=== PATIENT | female | born 1955 | race Caucasian/White ===

== ENCOUNTER 2019-10-06 14:50 | Outpatient (CLI) | payer MEDICAID, SELFPAY ==
--- NOTE | ~2019-10-06 | PE_ITS ---
EXAMINATION: PET skull to mid thigh DATE: 10/06/2019 16:29 INDICATION: Right lung lower lobe nodule. TECHNIQUE: Blood glucose level was 87 mg/dL. 6.302 mCi of 18-fluorodeoxyglucose (18-FDG) was administ ered i.v. Low dose computed tomography (CT) images were acquired from the base of the brain to the pr oximal thighs for attenuation correction and anatomic localization. Automated exposure control was em ployed. Dose-length product (DLP) was 678 mGy-cm. Positron emission tomography (PET) images were acqu ired in the same distribution. COMPARISON: CT abdomen and pelvis 09/27/2019, chest CT 11/01/2017, maxillofacial CT 02/09/2017 FINDINGS: Head/neck: There is a 1.9 x 1.9 cm mass in superficial right parotid gland with maximum SUV of 10.7, stable from 02/09/2017. There is increased activity in the oropharynx, submandibular glands, and glott is without CT correlate, likely physiologic. There are no pathologically enlarged lymph nodes. Chest: There is mild emphysema. There is a staple line in right lung. There are peripheral airspace o pacities in right lower lobe and right middle lobe including a 1.3 cm nodule in right lower lobe with out increased activity. No pleural effusion. The heart size is normal. There are coronary artery calc ifications. No pericardial effusion. There are no pathologically enlarged lymph nodes. Abdomen/pelvis/proximal thighs: The liver is normal. There are gallstones in the gallbladder, which i s normal in size. The spleen, pancreas, adrenal glands, and kidneys are normal. There is a 3.6 cm fus iform aneurysm of infrarenal aorta. There are no dilated loops of bowel. There is diverticulosis of t he colon without evidence of diverticulitis. There is a right inguinal hernia containing fat. There a re no pathologically enlarged lymph nodes. There is no free intraperitoneal fluid. There is internal fixation of proximal right femur. There is no osseous malignancy. IMPRESSION: 1. Peripheral airspace opacities in right lower lobe and right middle lobe including a 1.3 cm nodule in right lower lobe without increased activity, stable from 11/01/2017, likely benign. 2. Mild emphysema. 3. 3.6 cm fusiform aneurysm of infrarenal aorta. 4. 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 Reviewed, dictated and finalized at location A. US MANAGER IMPRESSION: 1. Peripheral airspace opacities in right lower lobe and right middle lobe incl uding a 1.3 cm nodule in right lower lobe without increased activity, stable fr om 11/01/2017, likely benign. 2. Mild emphysema. 3. 3.6 cm fusiform aneurysm of infrarenal aorta. 4. 1.9 cm right parotid mass with increased activity, stable from 02/09/2017, mo st likely a benign mixed tumor or Warthin tumor.
[2019-10-06 15:08] LABS: Glucose Point of Care 87 (65-105)
== END 2019-10-06 14:51 | disposition home or self-care (01) ==
LOC: ANHIMG 14:50
PROVIDERS: PCP Nurse Practitioner Family; Visit Provider Nurse Practitioner Family
DX: R91.8 Other nonspecific abnormal finding of lung field (principal); J43.9 Emphysema, unspecified; I71.9 Aortic aneurysm of unspecified site, without rupture
CPT/HCPCS: 78815; A9552

== ENCOUNTER 2020-04-14 06:04 | Inpatient (IN) | payer MEDICAID, SELFPAY ==
[2020-04-14] VITALS (9 sets, daily range): BP systolic 130–170; BP diastolic 66–93; PULSE 86–104; RESP 16–20; TEMP 35.9–37.1; O2SAT 93–95; BMI 22.3
--- NOTE | ~2020-04-14 | CT_ITS ---
EXAMINATION: CTA chest PE protocol DATE: 04/16/2020 02:02 INDICATION: Dyspnea. Hypoxemia. TECHNIQUE: Computed tomography angiography (CTA) of the chest was performed with 100 mL Omnipaque-350 intravenous contrast timed to evaluate the pulmonary arteries. Coronal maximum intensity projection 3D-reconstructions were created by the technologist. Automated exposure control and iterative reconst ruction technique were employed. The dose-length product was 242.11 mGy-cm. COMPARISON: PET CT 10/06/2019 FINDINGS: There is mild emphysema. There is a staple line in right upper lobe. There is mild atelecta sis in right upper lobe, right middle lobe, and lingula. There are airspace opacities in the basilar lower lobes with volume loss, most likely atelectasis. There is a small left pleural effusion. The he art size is normal. There are coronary artery calcifications. No pericardial effusion. The central pu lmonary arteries are enlarged, consistent with pulmonary arterial hypertension. There are pulmonary e mboli in right upper lobe. There is eventration of anterior right hemidiaphragm. There is diffuse hep atic steatosis. There is mild thoracic spondylosis and moderate cervical spondylosis. IMPRESSION: 1. Acute right upper lobe pulmonary emboli. 2. Airspace opacities in the basilar lower lobes with volume loss, consistent with atelectasis or les s likely pneumonia. 3. Mild emphysema. 4. Small left pleural effusion. Reviewed, dictated and finalized at location A. IMPRESSION: 1. Acute right upper lobe pulmonary emboli. 2. Airspace opacities in the basilar lower lobes with volume loss, consistent w ith atelectasis or less likely pneumonia. 3. Mild emphysema. 4. Small left pleural effusion.
--- NOTE | ~2020-04-14 | CT_ITS ---
EXAMINATION: CT cervical spine wo con DATE: 04/14/2020 07:48 INDICATION: Neck pain. TECHNIQUE: Computed tomography (CT) of the cervical spine was performed without intravenous contrast. Automated exposure control and iterative reconstruction technique were employed. The dose-length pro duct was 189.42 mGy-cm. COMPARISON: Cervical spine CT 11/01/2017 FINDINGS: There is mild emphysema. There is a staple line in right upper lobe. Again seen are 1.9 cm and 1.0 cm masses in right parotid gland. There is 15 degrees dextroscoliosis of cervicothoracic spin e. Vertebral body heights are normal. There is mildly decreased disc height at C3-C4 and C4-C5 and mo derately decreased disc height at C5-C6 and C6-C7. The following disc levels are specifically discuss ed: C2-C3: There is no uncovertebral joint osteoarthritis. There is severe bilateral facet joint osteoart hritis. There is no neural foraminal stenosis. There is no central canal stenosis. C3-C4: There is mild bilateral uncovertebral joint osteoarthritis. There is moderate right and mild l eft facet joint osteoarthritis. There is mild left neural foraminal stenosis. There is no central can al stenosis. C4-C5: There is moderate right and mild left uncovertebral joint osteoarthritis. There is severe righ t and mild left facet joint osteoarthritis. There is moderate right neural foraminal stenosis. There is no central canal stenosis. C5-C6: There is severe bilateral uncovertebral joint osteoarthritis. There is severe bilateral facet joint osteoarthritis. There is mild right and moderate left neural foraminal stenosis. There is mild central canal stenosis. C6-C7: There is mild right and moderate left uncovertebral joint osteoarthritis. There is moderate le ft facet joint osteoarthritis. There is mild left neural foraminal stenosis. There is mild central ca nal stenosis. C7-T1: There is no uncovertebral joint osteoarthritis. There is severe bilateral facet joint osteoart hritis. There is mild right and moderate left neural foraminal stenosis. There is no central canal st enosis. IMPRESSION: 1. No fracture. 2. Moderate cervical spondylosis. 3. Thoracolumbar dextroscoliosis. 4. Stable right parotid masses, most likely benign mixed tumors or Warthin tumors. Reviewed, dictated and finalized at location A. IMPRESSION: 1. No fracture. 2. Moderate cervical spondylosis. 3. Thoracolumbar dextroscoliosis. 4. Stable right parotid masses, most likely benign mixed tumors or Warthin tumo rs.
--- NOTE | ~2020-04-14 | CT_ITS ---
EXAMINATION: CT brain wo con DATE: 04/14/2020 07:47 INDICATION: Headache. TECHNIQUE: Computed tomography (CT) of the head was performed without intravenous contrast. The mA wa s adjusted according to patient size. Iterative reconstruction technique was employed. The dose-lengt h product was 681.00 mGy-cm. COMPARISON: Head CT 03/20/2018 FINDINGS: There is no intracranial hemorrhage, acute infarction, or abnormal intracranial mass lesion . There are scattered areas of low attenuation in the cerebral white matter, which is within normal l imits for the patient's age. The ventricles are normal in size. The orbits are normal. There is mild mucosal thickening in the ethmoid sinuses. There is a small right mastoid effusion. There are 1.8 cm and 1.0 cm masses in superficial right parotid gland. IMPRESSION: 1. Normal aging brain. 2. Stable right parotid masses, likely benign mixed tumors or Warthin tumors. Reviewed, dictated and finalized at location A.
--- NOTE | ~2020-04-14 | XR_ITS ---
EXAMINATION: XR chest 1V portable DATE: 04/14/2020 07:50 INDICATION: Chest pain. TECHNIQUE: A single frontal view of the chest was obtained. COMPARISON: Chest 2 views 07/05/2019, PET CT 10/06/2019 FINDINGS: There are lucencies in the upper lungs, consistent with emphysema. There is mild atelectasi s in the lower lung zones. No pleural effusion or pneumothorax. The heart size is normal. IMPRESSION: 1. Mild atelectasis in the lower lung zones. 2. Emphysema. Reviewed, dictated and finalized at location A.
--- NOTE | ~2020-04-14 | XR_ITS ---
EXAMINATION: XR chest 1V portable DATE: 04/16/2020 00:50 INDICATION: Fever. Hypoxemia. TECHNIQUE: A single frontal view of the chest was obtained. COMPARISON: Chest single view 04/14/2020, chest CT 04/16/2020 FINDINGS: There are lucencies at the lung apices, consistent with emphysema. There is a staple line i n right upper lobe. There are airspace opacities at the lung bases. There is a small left pleural eff usion. No pneumothorax. The heart size is normal. IMPRESSION: 1. Worsened airspace opacities at the lung bases, consistent with atelectasis versus pneumonia. 2. New small left pleural effusion. 3. Emphysema. Reviewed, dictated and finalized at location A. IMPRESSION: 1. Worsened airspace opacities at the lung bases, consistent with atelectasis v ersus pneumonia. 2. New small left pleural effusion. 3. Emphysema.
--- NOTE | ~2020-04-14 | CT_ITS ---
EXAMINATION: CT pelvis wo con DATE: 04/14/2020 07:48 INDICATION: Right hip pain. Fall. TECHNIQUE: Computed tomography (CT) of the pelvis was performed without intravenous contrast. Automat ed exposure control and iterative reconstruction technique were employed. The dose-length product was 285.62 mGy-cm. COMPARISON: PET CT 10/06/2019 FINDINGS: Partially visualized is a fusiform abdominal aortic aneurysm measuring at least 3.5 cm. The re is diverticulosis of the colon without evidence of diverticulitis. There are no dilated loops of b owel. There are no pathologically enlarged lymph nodes. There is no free intraperitoneal fluid. There is a nondisplaced transverse fracture of right acetabulum with small hematoma. There are old healed fractures of the inferior pubic rami. There is internal fixation of right femur with antegrade intram edullary nicol and femoral head/neck screw. There is mild osteoarthritis of the hips. There is mild lum bar spondylosis. IMPRESSION: 1. Nondisplaced transverse fracture of right acetabulum. 2. Mild osteoarthritis of the hips. 3. Stable 3.5 cm fusiform abdominal aortic aneurysm. Reviewed, dictated and finalized at location A.
--- NOTE | 2020-04-14 06:17 | ED_ITS ---
HPI - General Adult General Chief complaint: Unspecified Stated complaint: hip pain Source: patient and family (daughter) History of Present Illness HPI narrative: Fell at home sometime during the night. Her daughter helped her back to bed. Awoke in extreme pain. Has previously broken the right hip and right femur at different times. Uses wheelchair or walker at home. Related Data Home Medications Medication Instructions Recorded Confirmed albuterol sulfate 90 mcg/actuation 2 puff INHALATION Q4-6H PRN gm 07/05/19 04/14/20 aerosol inhaler gabapentin 300 mg capsule 300 mg PO TID 07/05/19 04/14/20 pantoprazole 40 mg tablet,delayed 40 mg PO QAM 07/05/19 04/14/20 release potassium chloride 10 mEq 10 meq PO DAILY 07/05/19 04/14/20 tablet,extended release magnesium hydroxide 400 mg (170 mg See Rx Instructions .ROUTE 09/27/19 04/14/20 magnesium) chewable tablet .COMPLEX tablet Allergies Allergy/AdvReac Type Severity Reaction Status Date / Time No Known Allergies Allergy Unverified 09/30/19 14:29 [facility] Social History Social History Smoking packs per day: 0.5 Smoking cigarettes per day: 10.0 Years smoked: 50 Smoking pack-years: 25.00 Smoking status: Current every day smoker Tobacco type: cigarettes Second hand tobacco smoke exposure: No Alcohol intake: current Substance use: former Substance use type: marijuana Additional living arrangements comments: [facility] provides person for shopping, housework, ADLs. Person comes 1 time a week. Gender identity (if verbalized by the patient): Female Discharge Plan Discharge Prescriptions: No Action Pedia-Lax 400 mg (170 mg magnesium) tablet,chewable See Rx Instructions .ROUTE .COMPLEX RF: 0 gabapentin 300 mg capsule 300 mg PO TID RF: 0 pantoprazole 40 mg tablet,delayed release (DR/EC) 40 mg PO QAM RF: 0 albuterol sulfate [Ventolin HFA] 90 mcg/actuation HFA aerosol inhaler 2 puff INHALATION Q4-6H PRN (Reason: Shortness Of Breath) RF: 0 potassium chloride 10 mEq tablet extended release 10 meq PO DAILY RF: 0 meloxicam 15 mg tablet 15 mg PO DAILY PRN (Reason: pain) Qty: 20 RF: 0 diclofenac sodium [Voltaren] 1 % gel 2 gm TOPICAL QID PRN (Reason: pain) 5 Days Qty: 100 RF: 2
--- NOTE | 2020-04-14 06:34 | ED.FALL ---
HPI - Fall General Chief Complaint: Altered Mental Status Stated Complaint: hip pain Time Seen by Provider: 04/14/20 07:28 Source: patient Mode of arrival: EMS Limitations: other (pain) History of Present Illness HPI Narrative: 65 y.o. female with chronic alcohol abuse disorder, cirrhosis and a hx of right femur and right hip fractures, thinks she was getting out of bed sometime during the night and fell to the floor. She was intoxicated, doesn't remember falling or having pain. Her daughter helped her back to bed, but she awoke this AM in severe pain with nausea and dry heaves and a minor headache. She denies neck pain. She states she's had black tarry stools for the last few weeks. She's also been having episodes of left sided chest pain for several weeks. She does not know the frequency or duration. She has had this pain for the last 30 minutes. Related Data Home Medications Medication Instructions Recorded Confirmed albuterol sulfate 90 mcg/actuation 2 puff INHALATION Q4-6H PRN gm 07/05/19 04/14/20 aerosol inhaler gabapentin 300 mg capsule 300 mg PO TID 07/05/19 04/14/20 pantoprazole 40 mg tablet,delayed 40 mg PO QAM 07/05/19 04/14/20 release potassium chloride 10 mEq 10 meq PO DAILY 07/05/19 04/14/20 tablet,extended release magnesium hydroxide 400 mg (170 mg See Rx Instructions .ROUTE 09/27/19 04/14/20 magnesium) chewable tablet .COMPLEX tablet Allergies Allergy/AdvReac Type Severity Reaction Status Date / Time No Known Allergies Allergy Unverified 09/30/19 14:29 Review of Systems Constitutional: Constitutional: Denies chills and Denies fever(s) ENT: Denies epistaxis Cardiovascular: Cardiovascular: Denies leg edema Respiratory: Respiratory: Denies cough (chronic) and Reports dyspnea (chronic, not recently worse. ) Gastrointestinal: Gastrointestinal: Denies abdominal pain, Denies diarrhea, Reports nausea and Reports vomiting Genitourinary: Comments: periodic incontinence. Musculoskeletal: Comments: denies pain elsewhere Integumentary/Breasts: Skin/Breast: Denies rash Neurologic: Reports headache(s) and Denies weakness Endocrine: Endocrine: Denies polydipsia Hematologic/Lymphatic: Hematologic/Lymphatic: Reports easy bleeding PMFSH Social History Social History Smoking packs per day: 0.5 Smoking cigarettes per day: 10.0 Years smoked: 50 Smoking pack-years: 25.00 Smoking status: Current every day smoker Tobacco type: cigarettes Second hand tobacco smoke exposure: No Alcohol intake: current Substance use: former Substance use type: marijuana Additional living arrangements comments: [facility] provides person for shopping, housework, ADLs. Person comes 1 time a week. Gender identity (if verbalized by the patient): Female Exam Const: General: No confusion Orientation/consciousness: patient oriented x3 Other: Laying supine, moaning, c/o severe pain HENMT: Head: normal to inspection, No palpable skull fracture present, atraumatic, no contusions, no hematomas and no lacerations Face and sinus: normal facial exam Eyes: General: appearance normal, both eyes and all related structures Conjunctivae: other Neck: Neck: normal visual inspection, no lymphadenopathy and other (nontender) Chest: Chest palpation & inspection: normal inspection of the chest and no tenderness Resp: Effort & Inspection: normal respiratory effort Auscultation: clear to auscultation bilaterally Cardio: Rhythm: regular rhythm Heart sounds: S1 normal heart sound present and S2 normal heart sound present GI: Inspection: normal to inspection GI Palp: No abdominal tenderness, Yes Soft to palpation, No Hepatomegaly present and No Splenomegaly present Back/Spine/Pelvis: Back: no CVA tenderness Thoracic/Lumbar Spine: thoracic and lumbar spine normal to inspection Pelvis: no tenderness over symphysis pubis Other: Right hip held f
[2020-04-14] MEDS: MORPHINE SULFATE 2 MG/ML INJ IV PUSH ×3 (06:36→07:46)
[2020-04-14] MEDS: ONDANSETRON INJ 4 MG/2 ML VIAL IV PUSH ×2 (06:37→12:16)
[2020-04-14 07:10] LABS: Basophils Absolute Auto 0.03 K/mm3 (0.00-0.10); Basophils Percent Auto 0.4 % (0.0-1.0); Eosinophils Absolute Auto 0.02 K/mm3 (0.02-0.50); Eosinophils Percent Auto 0.3 % (1.0-6.0); Hematocrit 41.8 % (35.0-49.0); Hemoglobin 15.3 g/dL (12.0-15.0); Immature Granulocyte Absolute 0.02 K/mm3 (0.00-0.00); Immature Granulocyte Percent A 0.3 % (0.0-0.0); Lymphocytes Absolute Auto 1.46 K/mm3 (1.10-4.50); Lymphocytes Percent Auto 19.6 % (18.0-42.0); Mean Corpuscular HGB Conc 36.6 g/dL (32.0-36.0); Mean Corpuscular Hemoglobin 37.4 pg (27.0-31.0); Mean Corpuscular Volume 102.2 fL (78.0-102.0); Mean Platelet Volume 9.3 fl (9.2-11.8); Monocytes Absolute Auto 0.36 K/mm3 (0.10-0.90); Monocytes Percent Auto 4.8 % (2.0-11.0); Neutrophils Absolute Auto 5.6 K/mm3 (1.7-7.2); Neutrophils Percent Auto 74.6 % (50.0-70.0); Platelet Count Result 171 K/mm3 (150-420); Red Blood Count 4.09 M/mm3 (4.20-5.40); Red Cell Distribution Width 13.8 % (11.6-14.4); White Blood Count 7.4 K/mm3 (4.8-10.8)
[2020-04-14 07:13] LABS: Occult Blood Negative (Negative)
--- NOTE | 2020-04-14 07:13 | ECG_ITS ---
Measurements Intervals [place] Rate: 94 P: 64 PA: 138 QRS: 17 QRSD: 77 T: 70 QT: 367 QTc: 459 Interpretive Statements SINUS RHYTHM RSR' IN V1 OR V2, PROBABLY NORMAL VARIANT MINIMAL Q WAVES- INFERIOR LEADS BORDERLINE ECG Electronically Signed On 04-16-2020 7:10:42 CDT by Kevin Rubio D.O.
[2020-04-14 07:20] LABS: INR 1.1; Partial Thromboplastin Time 28.1 SEC (22.3-31.6); Prothrombin Time 10.9 Seconds (9.64-11.0)
[2020-04-14 07:31] LABS: Alanine Aminotransferase 42 U/L (14-59); Albumin Level 3.2 g/dL (3.4-5.0); Alkaline Phosphatase 150 U/L (46-116); Anion Gap 15 mmol/L (8-16); Aspartate Amino Transferase 76 U/L (15-37); Bilirubin,Total 0.4 mg/dL (0.00-1.00); Blood Urea Nitrogen 2 mg/dL (7-18); Calcium 7.9 mg/dL (8.5-10.1); Carbon Dioxide 22 mmol/L (21-32); Chloride 103 mmol/L (98-108); Estimated CRCL calculation 57 ml/min; Estimated Glomerular Filt Rate > 60; Ethanol 154 mg/dL (0-6); Glucose 108 mg/dL (70-99); Osmolality Calculated 287 mOsm/kg (285-295); Potassium 3.2 mmol/L (3.5-5.1); Sodium 140 mmol/L (136-145); Total Protein 7.3 g/dL (6.4-8.2)
[2020-04-14 07:32] LABS: Troponin I < 0.02 ng/mL (0.00-0.056)
[2020-04-14 07:36] LABS: Add Urine Microscopic? NO; Appearance Urine Clear (Clear); Bilirubin Urine Negative (Negative); Blood Urine Negative (Negative); Color Urine Straw (Yellow); Glucose Urine UA Negative (Negative); Ketones Urine Negative (Negative); Leukocyte Esterase Ur Negative LEU/UL (Negative); Nitrate Urine Negative (Negative); Protein Urine Negative (Negative); Specific Grav Ur <= 1.005 (1.010-1.020); Urobilinogen Urine 0.2 mg/dL (0.2-1.0)
[2020-04-14 07:38] LABS: Magnesium 1.5 mg/dL (1.8-2.4)
--- NOTE | 2020-04-14 08:23 | PC.NURSE ---
0815 patient request [facility] [id number] now request mehdi
--- NOTE | 2020-04-14 08:27 | PC.NURSE ---
calling dr parish exchange, no answer
--- NOTE | 2020-04-14 08:46 | PC.NURSE ---
0835 called [facility] for possible admission to their hospital now.
--- NOTE | 2020-04-14 08:50 | PC.NURSE ---
attempted to reposition & place ice, patient refused. Keeps hollering I want breakfast, explained by medical underwriter & MD can not eat or drink until ortho defines plan of care
--- NOTE | 2020-04-14 08:58 | PC.NURSE ---
spoke to hospitalist, to be admitted here
--- NOTE | 2020-04-14 09:22 | PC.NURSE ---
[id number] called to give report, nurse with another patient
[2020-04-14] MEDS: HYDROmorphone HCL 2 MG/ML VIAL IV PUSH ×2 (09:33→14:31)
--- NOTE | 2020-04-14 09:41 | PC.NURSE ---
report given, to come take patient to room
[2020-04-14] MEDS: chlordiazePOXIDE 10 MG CAPSULE PO (10:20)
[2020-04-14] MEDS: SODIUM CHLORIDE 0.9% IV 1,000 ML 100 ML IV CONT ×2 (10:23→19:33)
--- NOTE | 2020-04-14 11:20 | PC.NURSE ---
Patient resting quietly in bed. No signs of distress noted. Call light in reach.
--- NOTE | 2020-04-14 14:22 | PM.IMHP ---
H&P: HPI History of Present Illness Date/Time: 04/14/20 14:22 Chief complaint: hip pain Narrative: Clara Joseph is a 65 year old female The sustained a nondisplaced transverse fracture of the right acetabulum status post fall. Patient has a past medical history chronic alcohol abuse disorder, cirrhosis, history of right femur and right hip fracture. While patient was intoxicated she attempts to get out of bed overnight and fell daughter assisted her back to bed but when she woke up this a.m. she has severe pain with nausea and dry heaves with headache and black stool. While in the ED a CT of the pelvis was completed it indicated nondisplaced transfer fracture of the right acetabulum. CT of the cervical spine did not indicate any fractures. Patient order morphine and Dilaudid to better control pain, given Zofran for nausea patient's sodium 3.2, AST elevated at 76. Patient's alcohol level on admission 154, magnesium pending, troponin 0.02 within normal limits. Patient vital signs 148/90 with a heart rate of 104 respiratory rate of 18 temperature 97.1? on room air 94%. Patient also received a banana bag while the ED due to her history of alcoholism and elevated alcohol level. Patient is continues to complain of nausea and vomiting and pain to the right hip without movement. patient pulses are palpable and she has with sensation, no hematoma felt to that right hip. patient is not able to bear weight to that right leg .. Patient denies SOB, CP, palpitation, extremity numbness, headache, lightheadness, dizziness, constipation, diarrhea, chills or fever. patient has agreed to transition to rehab Review of Systems Review of Systems: All systems reviewed & are unremarkable except as noted in HPI and below ( in the H&P 10 point system complete) [facility] Social History Social History Smoking packs per day: 1 Smoking cigarettes per day: 20.0 Years smoked: 50 Smoking pack-years: 50.00 Smoking status: Current every day smoker Tobacco type: cigarettes Second hand tobacco smoke exposure: No Alcohol intake: current Drinks per week: 70 Substance use: current Substance use type: marijuana and methamphetamine Additional living arrangements comments: [facility] provides person for shopping, housework, ADLs. Person comes 1 time a week. Gender identity (if verbalized by the patient): Female Spiritual care concerns: No Meds Home Medications and Allergies Home Medications Medication Instructions Recorded Confirmed Type albuterol sulfate 90 mcg/actuation 2 puff INHALATION Q4-6H PRN gm 07/05/19 04/14/20 History aerosol inhaler gabapentin 300 mg capsule 300 mg PO TID 07/05/19 04/14/20 History pantoprazole 40 mg tablet,delayed 40 mg PO QAM 07/05/19 04/14/20 History release potassium chloride 10 mEq 10 meq PO DAILY 07/05/19 04/14/20 History tablet,extended release magnesium hydroxide 400 mg (170 mg See Rx Instructions .ROUTE 09/27/19 04/14/20 History magnesium) chewable tablet .COMPLEX tablet meloxicam 15 mg tablet 15 mg PO DAILY PRN #20 tablet 10/14/19 04/14/20 Rx diclofenac sodium 1 % topical gel 2 gm TOPICAL QID PRN 5 Days #100 gm 11/18/19 04/14/20 Rx Allergies Allergy/AdvReac Type Severity Reaction Status Date / Time No Known Allergies Allergy Unverified 09/30/19 14:29 Vital Signs Vital Signs - 24 hr 04/14/20 06:23 04/14/20 07:48 04/14/20 08:49 Temperature 98.7 F 98 F Pulse Rate 90 88 86 Respiratory Rate 20 18 16 Blood Pressure 140/70 130/66 140/80 Pulse Oximetry 94 94 94 04/14/20 09:57 04/14/20 10:00 Temperature 98 F 97.1 F L Pulse Rate 88 104 H Respiratory Rate 18 18 Blood Pressure 160/70 H 148/90 H Pulse Oximetry 94 94 Exam Narrative: Exam Narrative: HEENT: PERRLA, Mucous Membranes Moist and [place], Nares Patent, Sclera Clear Neck: JVD, Supple Pulmonary: Clear to Auscultation, Normal Air Movement Cardiov
[2020-04-14] MEDS: METOCLOPRAMIDE HCL INJ 10 MG/2 ML VIAL IV PUSH ×3 (14:32→23:35)
[2020-04-14] MEDS: MAGNESIUM SULF 2 GM/WATER 50ML 2 GM/50 ML BAG IVPB (16:26)
[2020-04-14] MEDS: MELOXICAM 7.5 MG TABLET 15 MG PO (17:03)
[2020-04-14] MEDS: chlordiazePOXIDE 25 MG CAPSULE PO ×2 (17:04→23:35)
[2020-04-14] MEDS: GABAPENTIN 300 MG CAPSULE PO (17:05)
[2020-04-14 17:14] LABS: Glucose Point of Care 130 (65-105)
[2020-04-14] MEDS: KCL 20 MEQ/SW 100 ML 100 ML 50 MEQ IVPB (17:35)
[2020-04-14] MEDS: IPRATROPIUM 0.5 MG/ALBUTEROL SULFATE 2.5 MG AMPUL.NEB 3 ML INHALATION (18:33)
[2020-04-14 21:33] LABS: Glucose Point of Care 151 (65-105)
[2020-04-15] VITALS (15 sets, daily range): BP systolic 108–140; BP diastolic 62–76; PULSE 78–140; RESP 16–20; TEMP 36.7–37.7; O2SAT 75–98
[2020-04-15] MEDS: IPRATROPIUM 0.5 MG/ALBUTEROL SULFATE 2.5 MG AMPUL.NEB 3 ML INHALATION ×4 (00:08→23:20)
[2020-04-15] MEDS: HYDROmorphone HCL 2 MG/ML VIAL IV PUSH ×3 (04:09→19:35)
[2020-04-15] MEDS: SODIUM CHLORIDE 0.9% IV 1,000 ML 100 ML IV CONT ×2 (05:12→15:25)
[2020-04-15] MEDS: METOCLOPRAMIDE HCL INJ 10 MG/2 ML VIAL IV PUSH ×3 (06:04→17:17)
[2020-04-15] MEDS: chlordiazePOXIDE 25 MG CAPSULE PO ×3 (06:04→19:24)
--- NOTE | 2020-04-15 06:20 | PC.NURSE ---
Notified Dr. [place] of pt's low urine output; New orders received and noted.
[2020-04-15] MEDS: FUROSEMIDE INJ 40 MG/4 ML VIAL IV PUSH (06:29)
[2020-04-15 06:42] LABS: Basophils Absolute Auto 0.01 K/mm3 (0.00-0.10); Basophils Percent Auto 0.1 % (0.0-1.0); Eosinophils Absolute Auto 0.02 K/mm3 (0.02-0.50); Eosinophils Percent Auto 0.2 % (1.0-6.0); Hematocrit 36.6 % (35.0-49.0); Hemoglobin 12.8 g/dL (12.0-15.0); Immature Granulocyte Absolute 0.03 K/mm3 (0.00-0.00); Immature Granulocyte Percent A 0.4 % (0.0-0.0); Lymphocytes Absolute Auto 2.18 K/mm3 (1.10-4.50); Lymphocytes Percent Auto 26.6 % (18.0-42.0); Mean Corpuscular Hemoglobin 37.2 pg (27.0-31.0); Mean Corpuscular Volume 106.4 fL (78.0-102.0); Mean Platelet Volume 9.7 fl (9.2-11.8); Monocytes Percent Auto 6.1 % (2.0-11.0); Neutrophils Absolute Auto 5.5 K/mm3 (1.7-7.2); Neutrophils Percent Auto 66.6 % (50.0-70.0); Platelet Count Result 125 K/mm3 (150-420); Red Blood Count 3.44 M/mm3 (4.20-5.40); Red Cell Distribution Width 14.4 % (11.6-14.4); White Blood Count 8.2 K/mm3 (4.8-10.8)
[2020-04-15 06:51] LABS: Magnesium 1.8 mg/dL (1.8-2.4)
[2020-04-15 07:19] LABS: Alanine Aminotransferase 29 U/L (14-59); Albumin Level 2.7 g/dL (3.4-5.0); Alkaline Phosphatase 129 U/L (46-116); Anion Gap 8 mmol/L (8-16); Aspartate Amino Transferase 41 U/L (15-37); Bilirubin,Total 0.4 mg/dL (0.00-1.00); Blood Urea Nitrogen 3 mg/dL (7-18); Calcium 7.4 mg/dL (8.5-10.1); Carbon Dioxide 27 mmol/L (21-32); Chloride 103 mmol/L (98-108); Estimated CRCL calculation 80 ml/min; Estimated Glomerular Filt Rate > 60; Glucose 94 mg/dL (70-99); Osmolality Calculated 282 mOsm/kg (285-295); Potassium 3.1 mmol/L (3.5-5.1); Sodium 138 mmol/L (136-145); Total Protein 6.3 g/dL (6.4-8.2)
--- NOTE | 2020-04-15 07:58 | P.PN_ITS ---
Progress Note: A&P Assessment and Plan (1) Acetabulum fracture, right: Code(s): S32.401A - Unspecified fracture of right acetabulum, initial encounter for closed fracture Status: Acute Assessment and Plan: * CT indicates Nondisplaced transverse fracture of right acetabulum. * ortho called at [place] patient fracture is nonoperative., will medically treat * will start pain control and nonweightbearing to the right leg * will possibly transition patient to swing bed or rehab * patient with a history of right IM nailing on 08/19/2013 at [facility] by Dr. Cintron, and then again on to 10/05/15 at [facility] by Dr. Bajwa procedure right IM nailing with hardware removal. (2) Parotid mass: Code(s): K11.8 - Other diseases of salivary glands Status: Acute Assessment and Plan: * cervical CT indicates 1.9 cm and 1.0 cm masses in right parotid gland with small hematoma * patient will have follow-up with primary care physician after discharge (3) Alcohol dependence: Code(s): F10.20 - Alcohol dependence, uncomplicated Status: Acute Assessment and Plan: * patient has a history of alcohol abuse with cirrhosis * alcohol level at 154 on admission repeat pending * educated on cessation * patient is receiving Librium for withdrawal symptoms (4) Cirrhosis of liver: Code(s): K74.60 - Unspecified cirrhosis of liver Status: Acute Assessment and Plan: * secondary to alcohol abuse * hemoglobin and hematocrit stable today * will continue to monitor closely * patient does not appear to be actively bleeding * will continue to monitor hemoglobin hematocrit (5) Nicotine dependence with current use: Code(s): F17.200 - Nicotine dependence, unspecified, uncomplicated Status: Acute Assessment and Plan: * discuss smoking cessation * order nicotine patch (6) GERD (gastroesophageal reflux disease): Code(s): K21.9 - Gastro-esophageal reflux disease without esophagitis Status: Acute Assessment and Plan: * continue Protonix (7) COPD (chronic obstructive pulmonary disease): Code(s): J44.9 - Chronic obstructive pulmonary disease, unspecified Status: Acute Assessment and Plan: * stable * patient sat's 89 this is more than likely her baseline , patient without signs of respiratory distress such as shortness of breath or labored breathing * continue inhalers * p.r.n. oxygen * continue vital signs (8) AAA (abdominal aortic aneurysm) without rupture: Code(s): I71.4 - Abdominal aortic aneurysm, without rupture Status: Acute Assessment and Plan: * fusiform abdominal aortic aneurysm measuring at least 3.5 cm. * monitor by primary care physician (9) Nausea & vomiting: Code(s): R11.2 - Nausea with vomiting, unspecified Status: Acute Assessment and Plan: * resolved * possibly secondary to withdrawal symptoms * continue Zofran also added Reglan * will continue to hydrate patient the IV (10) DVT prophylaxis: Code(s): Z29.9 - Encounter for prophylactic measures, unspecified Status: Acute Assessment and Plan: * will start Lovenox * (11) Black stool: Code(s): K92.1 - Melena Status: Acute Assessment and Plan: * hemoglobin hematocrit stable * no active bleeding noted * occult blood negative (12) Hypokalemia: Code(s): E87.6 - Hypokalemia Status: Acute Assessment and Plan: * po
--- NOTE | 2020-04-15 07:58 | WPDPN ---
Progress Note: A&P Assessment and Plan (1) Acetabulum fracture, right: Code(s): S32.401A - Unspecified fracture of right acetabulum, initial encounter for closed fracture Status: Acute Assessment and Plan: CT indicates Nondisplaced transverse fracture of right acetabulum. ortho called at [place] patient fracture is nonoperative., will medically treat will start pain control and nonweightbearing to the right leg will possibly transition patient to swing bed or rehab patient with a history of right IM nailing on 08/19/2013 at [facility] by Dr. Cintron, and then again on to 10/05/15 at [facility] by Dr. Bajwa procedure right IM nailing with hardware removal. (2) Parotid mass: Code(s): K11.8 - Other diseases of salivary glands Status: Acute Assessment and Plan: cervical CT indicates 1.9 cm and 1.0 cm masses in right parotid gland with small hematoma patient will have follow-up with primary care physician after discharge (3) Alcohol dependence: Code(s): F10.20 - Alcohol dependence, uncomplicated Status: Acute Assessment and Plan: patient has a history of alcohol abuse with cirrhosis alcohol level at 154 on admission repeat pending educated on cessation patient is receiving Librium for withdrawal symptoms (4) Cirrhosis of liver: Code(s): K74.60 - Unspecified cirrhosis of liver Status: Acute Assessment and Plan: secondary to alcohol abuse hemoglobin and hematocrit stable today will continue to monitor closely patient does not appear to be actively bleeding will continue to monitor hemoglobin hematocrit (5) Nicotine dependence with current use: Code(s): F17.200 - Nicotine dependence, unspecified, uncomplicated Status: Acute Assessment and Plan: discuss smoking cessation order nicotine patch (6) GERD (gastroesophageal reflux disease): Code(s): K21.9 - Gastro-esophageal reflux disease without esophagitis Status: Acute Assessment and Plan: continue Protonix (7) COPD (chronic obstructive pulmonary disease): Code(s): J44.9 - Chronic obstructive pulmonary disease, unspecified Status: Acute Assessment and Plan: stable patient sat's 89 this is more than likely her baseline , patient without signs of respiratory distress such as shortness of breath or labored breathing continue inhalers p.r.n. oxygen continue vital signs (8) AAA (abdominal aortic aneurysm) without rupture: Code(s): I71.4 - Abdominal aortic aneurysm, without rupture Status: Acute Assessment and Plan: fusiform abdominal aortic aneurysm measuring at least 3.5 cm. monitor by primary care physician (9) Nausea & vomiting: Code(s): R11.2 - Nausea with vomiting, unspecified Status: Acute Assessment and Plan: resolved possibly secondary to withdrawal symptoms continue Zofran also added Reglan will continue to hydrate patient the IV (10) DVT prophylaxis: Code(s): Z29.9 - Encounter for prophylactic measures, unspecified Status: Acute Assessment and Plan: will start Lovenox (11) Black stool: Code(s): K92.1 - Melena Status: Acute Assessment and Plan: hemoglobin hematocrit stable no active bleeding noted occult blood negative (12) Hypokalemia: Code(s): E87.6 - Hypokalemia Status: Acute Assessment and Plan: possibly secondary to nausea vomiting versus alcohol abuse potassium 3.1 increase daily potassium to 40 meq instead repeat potassium level in a.m. (13) Hypomagnesemia: Code(s): E83.42 - Hypomagnesemia Status: Acute Assessment and Plan: resolved possibly secondary to nausea vomiting versus alcohol abuse repeat magnesium level in the a.m. (14) Substance abuse: Code(s): F19.10 - Other psychoactive substanc
[2020-04-15] MEDS: FOLIC ACID 1 MG TABLET PO (09:28)
[2020-04-15] MEDS: POTASSIUM CHLORIDE 10 MEQ TABLET 40 MEQ PO (09:28)
[2020-04-15] MEDS: PANTOPRAZOLE 40 MG TABLET PO (09:28)
[2020-04-15] MEDS: THIAMINE HCL 100 MG TABLET PO (09:28)
[2020-04-15] MEDS: GABAPENTIN 300 MG CAPSULE PO ×3 (09:28→17:17)
[2020-04-15 09:57] LABS: Ethanol < 3 mg/dL (0-6)
--- NOTE | 2020-04-15 14:39 | P.PNCROSS_ITS ---
Event Note Event Note Event Note: For this patient encounter, I reviewed the HADOOP ADMINISTRATOR or PA documentation, treatment plan, and medical decision making; and I had [id number] time with this patient.
--- NOTE | 2020-04-15 14:39 | PM.EVENT ---
Event Note Event Note Event Note: For this patient encounter, I reviewed the FUR MIXER OPERATOR or PA documentation, treatment plan, and medical decision making; and I had [id number] time with this patient.
--- NOTE | 2020-04-15 23:20 | PC.NURSE ---
Upon doing routine VS nurse noted patient's heart rate to be 140, her temperature to be 99.8 and her SpO2 to be 75% on room air. Patient denies shortness of breath. Color remains pink with no s/sx of cyanosis noted. Charge nurse aware of change in patient's condition and is notifying Dr Tuttle. Meantime patient's Duoneb given early per nurses judgement and O2 started per nasal cannula @ 2 lpm.
--- NOTE | 2020-04-15 23:24 | PC.NURSE ---
Notified Dr. Tuttle regarding change in pt's condition. Orders received and noted.
--- NOTE | 2020-04-15 23:35 | PC.NURSE ---
Oxygen increased to 4 lpm/nc and SpO2 raised to 85% @ this time. Patient continues to deny being short of breath. No dyspnea noted. Heart rate continues to be between 130 and 140. Patient denies feeling heart pounding or having palpitations.
--- NOTE | 2020-04-15 23:40 | PC.NURSE ---
Portable chest x-ray done. Patient tolerated well.
--- NOTE | 2020-04-15 23:43 | PC.NURSE ---
SpO2 remains @ 85%. Patient switched to non-rebreather mask @ 15 lpm. Patient continues to deny shortness of breath with no dyspnea noted.
--- NOTE | 2020-04-15 23:55 | PC.NURSE ---
Labs done. Patient tolerated well.
[2020-04-16] VITALS (17 sets, daily range): BP systolic 106–119; BP diastolic 67–70; PULSE 104–140; RESP 12–28; TEMP 36.6–37.8; O2SAT 85–94
[2020-04-16] MEDS: METOCLOPRAMIDE HCL INJ 10 MG/2 ML VIAL IV PUSH ×2 (00:19→05:50)
[2020-04-16 00:23] LABS: Basophils Absolute Auto 0.04 K/mm3 (0.00-0.10); Basophils Percent Auto 0.4 % (0.0-1.0); Eosinophils Absolute Auto 0.03 K/mm3 (0.02-0.50); Eosinophils Percent Auto 0.3 % (1.0-6.0); Hematocrit 38.3 % (35.0-49.0); Hemoglobin 13.2 g/dL (12.0-15.0); Immature Granulocyte Absolute 0.13 K/mm3 (0.00-0.00); Immature Granulocyte Percent A 1.2 % (0.0-0.0); Immature Platelet Fraction Pct 5.4 % (1.0-7.0); Lymphocytes Absolute Auto 2.56 K/mm3 (1.10-4.50); Lymphocytes Percent Auto 24.5 % (18.0-42.0); Mean Corpuscular HGB Conc 34.5 g/dL (32.0-36.0); Mean Corpuscular Hemoglobin 37.3 pg (27.0-31.0); Mean Corpuscular Volume 108.2 fL (78.0-102.0); Mean Platelet Volume 10.3 fl (9.2-11.8); Monocytes Absolute Auto 0.43 K/mm3 (0.10-0.90); Monocytes Percent Auto 4.1 % (2.0-11.0); Neutrophils Absolute Auto 7.3 K/mm3 (1.7-7.2); Neutrophils Percent Auto 69.5 % (50.0-70.0); Platelet Count Result 107 K/mm3 (150-420); Red Blood Count 3.54 M/mm3 (4.20-5.40); Red Cell Distribution Width 14.2 % (11.6-14.4); White Blood Count 10.5 K/mm3 (4.8-10.8)
[2020-04-16 00:24] LABS: Bilirubin Urine Negative (Negative); Color Urine Yellow (Yellow); Glucose Urine UA Negative (Negative); Ketones Urine Negative (Negative); Leukocyte Esterase Ur 2+ (Negative); Nitrate Urine Negative (Negative); Protein Urine Negative (Negative); Specific Grav Ur <= 1.005 (1.010-1.020); Urobilinogen Urine 0.2 mg/dL (0.2-1.0)
[2020-04-16 00:24] LABS: Anion Gap 10 mmol/L (8-16); Blood Urea Nitrogen 3 mg/dL (7-18); Calcium 7.4 mg/dL (8.5-10.1); Carbon Dioxide 24 mmol/L (21-32); Chloride 100 mmol/L (98-108); Estimated CRCL calculation 63 ml/min; Estimated Glomerular Filt Rate > 60; Glucose 107 mg/dL (70-99); Osmolality Calculated 274 mOsm/kg (285-295); Potassium 3.4 mmol/L (3.5-5.1); Sodium 134 mmol/L (136-145)
--- NOTE | 2020-04-16 00:25 | PC.NURSE ---
O2 @ 12 lpm per non-rebreather mask. Heart rate @ 140. Patient continues to deny shortness of breath or any chest discomfort. No dyspnea noted. Color remains pink with no s/sx of cyanosis noted. Pulse non-bounding.
[2020-04-16 00:31] LABS: Add Urine Microscopic? YES; Appearance Urine Sl Cloudy (Clear); Bacteria Urine 1+ /hpf; Blood Urine Trace-Intact (Negative); Mucus Urine None seen /lpf; RBC Urine 0-2 /hpf (0-2); Squamous Epithelial Cell Urine Rare /hpf (Few)
[2020-04-16 00:33] LABS: Lactic Acid 1.6 mmol/L (0.4-2.0)
--- NOTE | 2020-04-16 00:38 | PC.NURSE ---
Notified Dr. Tuttle about pt's temperature and SAO2.
[2020-04-16 00:44] LABS: D Dimer 3.53 mg/L (0.19-0.50)
--- NOTE | 2020-04-16 00:44 | PC.NURSE ---
Notified Dr. Tuttle of pt's critical d-dimer of 3.53.
--- NOTE | 2020-04-16 00:45 | PC.NURSE ---
New orders received for CTA and EKG.
--- NOTE | 2020-04-16 00:54 | ECG_ITS ---
Measurements Intervals [place] Rate: 142 P: 28 [place]: 139 QRS: -16 QRSD: 77 T: 50 QT: 292 QTc: 450 Interpretive Statements SINUS TACHYCARDIA BASELINE ARTIFACT- II, III, AVR, AVF, V4-V5 ABNORMAL ECG Electronically Signed On 04-16-2020 8:56:45 CDT by Kevin Rubio D.O.
--- NOTE | 2020-04-16 00:54 | ECG_ITS ---
Measurements Intervals [place] Rate: 128 P: 38 [place]: 142 QRS: -8 QRSD: 82 T: 41 QT: 316 QTc: 462 Interpretive Statements SINUS TACHYCARDIA EARLY PRECORDIAL R/S TRANSITION BASELINE ARTIFACT- I, II, III, AVR, AVL, AVF, V1-V3 ABNORMAL ECG Electronically Signed On 04-16-2020 7:19:31 CDT by Kevin Rubio D.O.
--- NOTE | 2020-04-16 01:11 | PC.NURSE ---
EKG done and results to Dr Tuttle. Patient tolerated well.
--- NOTE | 2020-04-16 01:35 | PC.NURSE ---
#18 IV catheter started on LFA on 4th try and with 3rd nurse.
--- NOTE | 2020-04-16 01:45 | PC.NURSE ---
Patient to radiology for CTA chest. Patient tolerated well. Patient's new IV in LFA infiltrated @ end of test. IV site discontinued and warm cloth applied to site.
[2020-04-16 02:00] LABS: Troponin I 0.03 ng/mL (0.00-0.056)
[2020-04-16] MEDS: chlordiazePOXIDE 25 MG CAPSULE PO (02:29)
[2020-04-16] MEDS: HYDROmorphone HCL 2 MG/ML VIAL IV PUSH ×2 (02:30→11:23)
[2020-04-16] MEDS: SODIUM CHLORIDE 0.9% IV 1,000 ML 100 ML IV CONT ×2 (02:31→10:06)
--- NOTE | 2020-04-16 03:10 | PC.NURSE ---
ABG drawn per lab.
[2020-04-16 03:15] LABS: HCO3 ABG 22.6 mmol/L (23-29); Oxygen Content ABG 11.6 %vol (16.0-22.0); Oxygen Saturation ABG 58.2 % (95-97); Oxyhemoglobin 57.7 % (94-100); Total Hemoglobin 14.3 g/dL; pH ABG 7.35 (7.35-7.45)
[2020-04-16 03:18] LABS: Modified Allen's Test Pass; Site Drawn LEFT RADIAL
[2020-04-16 03:19] LABS: Device NON-REBREATHER MASK
--- NOTE | 2020-04-16 03:31 | PC.NURSE ---
Dr. Tuttle notified of critical ABG results.
[2020-04-16] MEDS: IPRATROPIUM 0.5 MG/ALBUTEROL SULFATE 2.5 MG AMPUL.NEB 3 ML INHALATION (03:37)
--- NOTE | 2020-04-16 03:58 | PM.EVENT ---
Event Note Event Note Event Note: 04/16/20 03:55 At 23:20 patient was disoriented, p = 135, RR = 20 T = 99.8, BP 119/74 . Elevated D dimer. CTA - 1. right upper lobe filling defect c/w pulmonary embolus. 2. bilatera. lower lobe consolidation, left upper lobe opacity pobably infection. 3. Pulmonary a. enlarged s/o pulmonary a. hypertensoin. UA (from catheter) 1-15 WBC, 1+ bacteria. WBC - 10.5 , negative lactic acid No c/o c.p. or SOB. Pt. does not like mask. C/o RLQ pain all day. This is not unusual for her. O alert and oriented Breath sounds decreased right base. No wheezes. Cor: tachycardia. No murmer. Abd. Tender LLQ. Sequential compression device on calves. A/P. . 1. PE - start lovenox. 2. bibasilr and KRISTINA pneumonia - blood cultures, cefipime 3. hypoxemia - duoneb, non-rebreather. 4. tachycardia - fever and/or infection and/or hypovolemia. Tx. fever. 500 NS bolus. Pt. is full code
--- NOTE | 2020-04-16 03:59 | PC.NURSE ---
Dr. Tuttle here to see and examine pt.
--- NOTE | 2020-04-16 05:03 | PC.NURSE ---
Bolus of 500ml given from NS bag already hanging. Then rate returned to 100ml/hr.
[2020-04-16 05:24] LABS: Base Excess ABG -5.2 mmol/L (0-2); HCO3 ABG 19.9 mmol/L (23-29); Oxygen Content ABG 18.1 %vol (16.0-22.0); Oxygen Saturation ABG 93.9 % (95-97); Oxyhemoglobin 93.8 % (94-100); PCO2 ABG 37.4 mmHg (35-45); PO2 ABG 73.7 mmHg (80-90); Total Hemoglobin 13.7 g/dL; pH ABG 7.34 (7.35-7.45)
[2020-04-16 05:25] LABS: Device NON-REBREATHER MASK; Modified Allen's Test Pass; Site Drawn LEFT RADIAL
[2020-04-16 05:26] LABS: Hemoglobin 13.2 g/dL (12.0-15.0); Immature Platelet Fraction Pct 5.6 % (1.0-7.0); Mean Corpuscular HGB Conc 33.8 g/dL (32.0-36.0); Mean Corpuscular Hemoglobin 37.2 pg (27.0-31.0); Mean Corpuscular Volume 109.9 fL (78.0-102.0); Mean Platelet Volume 10.1 fl (9.2-11.8); Platelet Count Result 100 K/mm3 (150-420); Red Blood Count 3.55 M/mm3 (4.20-5.40); Red Cell Distribution Width 14.2 % (11.6-14.4); White Blood Count 9.6 K/mm3 (4.8-10.8)
[2020-04-16 05:47] LABS: Alanine Aminotransferase 23 U/L (14-59); Albumin Level 2.3 g/dL (3.4-5.0); Alkaline Phosphatase 111 U/L (46-116); Anion Gap 7 mmol/L (8-16); Aspartate Amino Transferase 37 U/L (15-37); Bilirubin,Total 0.6 mg/dL (0.00-1.00); Blood Urea Nitrogen 3 mg/dL (7-18); Calcium 7.2 mg/dL (8.5-10.1); Carbon Dioxide 26 mmol/L (21-32); Chloride 100 mmol/L (98-108); Estimated CRCL calculation 57 ml/min; Estimated Glomerular Filt Rate > 60; Glucose 113 mg/dL (70-99); Magnesium 1.3 mg/dL (1.8-2.4); Osmolality Calculated 273 mOsm/kg (285-295); Potassium 3.5 mmol/L (3.5-5.1); Sodium 133 mmol/L (136-145); Total Protein 6.1 g/dL (6.4-8.2)
[2020-04-16] MEDS: ACETAMINOPHEN 325 MG TABLET 650 MG PO (05:50)
[2020-04-16 05:54] LABS: Troponin I 0.18 ng/mL (0.00-0.056)
--- NOTE | 2020-04-16 06:25 | PC.NURSE ---
Dr. Tuttle notified of pt's critical troponin of 0.18. No new orders at this time.
--- NOTE | 2020-04-16 06:39 | PC.NURSE ---
Patient pulled right wrist IV site out. Catheter intact.
[2020-04-16] MEDS: MAGNESIUM SULF 2 GM/WATER 50ML 2 GM/50 ML BAG IVPB (07:49)
--- NOTE | 2020-04-16 09:03 | PC.NURSE ---
Patient SPO2 stats in the 80's, RN went to check on pt. Patient denies SOB, Pt asking about eating. Mask on appropriately. Madelaine ANP notified of SPO2 Stats. Awaitng further orders.
[2020-04-16 09:07] LABS: BNP 359 pg/mL (0-100)
--- NOTE | 2020-04-16 09:46 | P.TS_ITS ---
Transfer Discharge Sum: Prov Provider Date of admission: 04/14/20 09:11 Primary care physician: Angel Gaming DO Admitting clinician: Dom Washington MD DS: Admitting Diagnosis Admitting Diagnosis Admitting Diagnosis: hip fracture DS: Discharge Diagnosis Discharge Diagnosis (1) Acetabulum fracture, right: Code(s): S32.401A - Unspecified fracture of right acetabulum, initial encounter for closed fracture Status: Acute Assessment and Plan: * CT indicates Nondisplaced transverse fracture of right acetabulum. * ortho called at [place] patient fracture is nonoperative., will medically treat * will start pain control and nonweightbearing to the right leg * patient with a history of right IM nailing on 08/19/2013 at [facility] by Dr. Cintron, and then again on to 10/05/15 at [facility] by Dr. Bajwa procedure right IM nailing with hardware removal. (2) Parotid mass: Code(s): K11.8 - Other diseases of salivary glands Status: Acute Assessment and Plan: * cervical CT indicates 1.9 cm and 1.0 cm masses in right parotid gland with small hematoma * patient will have follow-up with primary care physician after discharge (3) Alcohol dependence: Code(s): F10.20 - Alcohol dependence, uncomplicated Status: Acute Assessment and Plan: * is not displaying any withdrawal symptoms at this time * patient has a history of alcohol abuse with cirrhosis * alcohol level at 154 on admission * educated on cessation * patient is receiving Librium for withdrawal symptoms (4) Cirrhosis of liver: Code(s): K74.60 - Unspecified cirrhosis of liver Status: Acute Assessment and Plan: * secondary to alcohol abuse * hemoglobin and hematocrit stable today * will continue to monitor closely * patient does not appear to be actively bleeding * will continue to monitor hemoglobin hematocrit * liver enzymes within normal limits (5) Nicotine dependence with current use: Code(s): F17.200 - Nicotine dependence, unspecified, uncomplicated Status: Acute Assessment and Plan: * discuss smoking cessation * order nicotine patch (6) GERD (gastroesophageal reflux disease): Code(s): K21.9 - Gastro-esophageal reflux disease without esophagitis Status: Acute Assessment and Plan: * continue Protonix (7) COPD (chronic obstructive pulmonary disease): Code(s): J44.9 - Chronic obstructive pulmonary disease, unspecified Status: Acute Assessment and Plan: * unstable patient with labored breathing, patient became hypoxia overnight * patient currently on CPAP with a with his 6 L bleeding in * continue inhalers * p.r.n. oxygen * continue vital signs (8) AAA (abdominal aortic aneurysm) without rupture: Code(s): I71.4 - Abdominal aortic aneurysm, without rupture Status: Acute Assessment and Plan: * fusiform abdominal aortic aneurysm measuring at least 3.5 cm. * monitor by primary care physician (9) Nausea & vomiting: Code(s): R11.2 - Nausea with vomiting, unspecified Status: Acute Assessment and Plan: * resolved * possibly secondary to withdrawal symptoms * continue Zofran also added Reglan * will continue to hydrate patient the IV (10) DVT prophylaxis: Code(s): Z29.9 - Encounter for prophylactic measures, unspecified Status: Acute Assessment and Plan: * Lovenox has been increased for PE treatment * (11) Black st
--- NOTE | 2020-04-16 09:46 | PM.TDS ---
Transfer Discharge Sum: Prov Provider Date of admission: 04/14/20 09:11 Primary care physician: Angel Gaming DO Admitting clinician: Dom Washington MD DS: Admitting Diagnosis Admitting Diagnosis Admitting Diagnosis: hip fracture DS: Discharge Diagnosis Discharge Diagnosis (1) Acetabulum fracture, right: Code(s): S32.401A - Unspecified fracture of right acetabulum, initial encounter for closed fracture Status: Acute Assessment and Plan: CT indicates Nondisplaced transverse fracture of right acetabulum. ortho called at [place] patient fracture is nonoperative., will medically treat will start pain control and nonweightbearing to the right leg patient with a history of right IM nailing on 08/19/2013 at [facility] by Dr. Cintron, and then again on to 10/05/[address] [facility] by Dr. Bajwa procedure right IM nailing with hardware removal. (2) Parotid mass: Code(s): K11.8 - Other diseases of salivary glands Status: Acute Assessment and Plan: cervical CT indicates 1.9 cm and 1.0 cm masses in right parotid gland with small hematoma patient will have follow-up with primary care physician after discharge (3) Alcohol dependence: Code(s): F10.20 - Alcohol dependence, uncomplicated Status: Acute Assessment and Plan: is not displaying any withdrawal symptoms at this time patient has a history of alcohol abuse with cirrhosis alcohol level at 154 on admission educated on cessation patient is receiving Librium for withdrawal symptoms (4) Cirrhosis of liver: Code(s): K74.60 - Unspecified cirrhosis of liver Status: Acute Assessment and Plan: secondary to alcohol abuse hemoglobin and hematocrit stable today will continue to monitor closely patient does not appear to be actively bleeding will continue to monitor hemoglobin hematocrit liver enzymes within normal limits (5) Nicotine dependence with current use: Code(s): F17.200 - Nicotine dependence, unspecified, uncomplicated Status: Acute Assessment and Plan: discuss smoking cessation order nicotine patch (6) GERD (gastroesophageal reflux disease): Code(s): K21.9 - Gastro-esophageal reflux disease without esophagitis Status: Acute Assessment and Plan: continue Protonix (7) COPD (chronic obstructive pulmonary disease): Code(s): J44.9 - Chronic obstructive pulmonary disease, unspecified Status: Acute Assessment and Plan: unstable patient with labored breathing, patient became hypoxia overnight patient currently on CPAP with a with his 6 L bleeding in continue inhalers p.r.n. oxygen continue vital signs (8) AAA (abdominal aortic aneurysm) without rupture: Code(s): I71.4 - Abdominal aortic aneurysm, without rupture Status: Acute Assessment and Plan: fusiform abdominal aortic aneurysm measuring at least 3.5 cm. monitor by primary care physician (9) Nausea & vomiting: Code(s): R11.2 - Nausea with vomiting, unspecified Status: Acute Assessment and Plan: resolved possibly secondary to withdrawal symptoms continue Zofran also added Reglan will continue to hydrate patient the IV (10) DVT prophylaxis: Code(s): Z29.9 - Encounter for prophylactic measures, unspecified Status: Acute Assessment and Plan: Lovenox has been increased for PE treatment (11) Black stool: Code(s): K92.1 - Melena Status: Acute Assessment and Plan: hemoglobin hematocrit stable no active bleeding noted occult blood negative (12) Hypokalemia: Code(s): E87.6 - Hypokalemia Status: Acute Assessment and Plan: resolved possibly secondary to nausea vomiting versus alcohol abuse potassium within normal limits increase daily potassium to 40 meq instead (13) Hypomagnesem
[2020-04-16] MEDS: ENOXAPARIN 60 MG/0.6 ML SYRINGE SUB-Q (10:18)
--- NOTE | 2020-04-16 11:17 | PC.NURSE ---
Report called to [facility]
--- NOTE | 2020-04-16 11:27 | PC.NURSE ---
[facility] refused to traansfer pt r/t only one ALS rig on shift. [facility] called, awaiting thier arrivial.
== END 2020-04-16 12:00 | disposition short-term general hospital (02) | DRG 535 ==
LOC: CHSED 09:05 → CHS2ND 09:11
PROVIDERS: Family Medicine; Nurse Practitioner; Admitting Provider Emergency Medicine; Emergency Provider Emergency Medicine; PCP Family Medicine; Visit Provider Emergency Medicine
DX: S32.9XXA Fracture of unspecified parts of lumbosacral spine and pelvis, initial encounter for closed fracture (principal); S32.454A Nondisplaced transverse fracture of right acetabulum, initial encounter for closed fracture; I26.99 Other pulmonary embolism without acute cor pulmonale; K74.60 Unspecified cirrhosis of liver; R06.00 Dyspnea, unspecified; R07.9 Chest pain, unspecified; F10.129 Alcohol abuse with intoxication, unspecified; J18.9 Pneumonia, unspecified organism; N39.0 Urinary tract infection, site not specified; K70.30 Alcoholic cirrhosis of liver without ascites; F10.229 Alcohol dependence with intoxication, unspecified; E83.42 Hypomagnesemia; E87.6 Hypokalemia; J44.9 Chronic obstructive pulmonary disease, unspecified; I71.4 Abdominal aortic aneurysm, without rupture; K21.9 Gastro-esophageal reflux disease without esophagitis; K11.9 Disease of salivary gland, unspecified; R11.2 Nausea with vomiting, unspecified; F12.90 Cannabis use, unspecified, uncomplicated; F14.90 Cocaine use, unspecified, uncomplicated; F17.210 Nicotine dependence, cigarettes, uncomplicated; F15.90 Other stimulant use, unspecified, uncomplicated; W19.XXXA Unspecified fall, initial encounter; Y92.013 Bedroom of single-family (private) house as the place of occurrence of the external cause
CPT/HCPCS: 36415; 36600; 70450; 71045; 71275; 72125; 72192; 80048; 80053; 80307; 81001; 81003; 82272; 82805; 83605; 83735; 83880; 84484; 85025; 85027; 85055; 85380; 85610; 85730; 87040; 87077; 87086; 87088; 93005; 94660; 96374; 96375; 96376; 97161; 99284; 99285; A9270; J0692; J1170; J1650; J1940; J1956; J2270; J2405; J2765; J3475; J3480; J7030; Q9965

== ENCOUNTER 2020-04-16 12:42 | Inpatient (IN) | payer MEDICAID, SELFPAY ==
[2020-04-16] VITALS (10 sets, daily range): BP systolic 115–169; BP diastolic 64–77; PULSE 110–143; RESP 20–36; TEMP 36.3–37.3; O2SAT 91–99; BMI 23.1
--- NOTE | 2020-04-16 | ECHO_ITS ---
Patient Info Name: Clara Joseph Age: 65 years : 1955 Gender: Female Ht: 65 in Wt: 141 lbs BSA: 1.72 m2 HR: 105 bpm BP: 115 / 64 mmHg Heart Rhythm: Tachycardia Technical Quality: Good Exam Date: 04/16/2020 4:17 PM Exam Location: [facility] Pulmonary Patient Status: Inpatient Admit Date: 04/16/2020 Staff Ordering Physician: Fidelia Ortiz NP Vinyl Hanger: Salvatore Mcpherson RDCS Attending Provider: Vini Parra MD Referring Physician: Diana MENCHACA; Exam Type: CA echo doppler color flow Study Info Indications R06.02 - Shortness of breath Complete two-dimensional, color flow and Doppler transthoracic echocardiogram is performed. History/Risk Factors Pulmonary embolism; EtOH abuse, cirrhosis, tachycardia, COPD. Summary 1. Left ventricular chamber dimension is normal. 2. Left ventricular systolic function is hyperdynamic, estimated at >70%. 3. There is mildly increased left ventricular wall thickness. 4. The left ventricular diastolic function is grade I diastolic dysfunction. 5. E/e' 6 is not elevated. 6. The aortic valve is not well visualized. 7. There is mild aortic valve stenosis based on a peak velocity of 213 cm/s, mean gradient of 8 mmHg, and aortic valve area of 1.8 cm2. 8. Normal inferior vena cava with <50% collapse upon inspiration consistent with elevated right atrial pressure, 10 mmHg. Left Ventricle E/e' 6 is not elevated. Left ventricular chamber dimension is normal. Left ventricular systolic function is hyperdynamic, estimated at >70%. There is mildly increased left ventricular wall thickness. The left ventricular diastolic function is grade I diastolic dysfunction. Right Ventricle Right ventricular chamber dimension is normal. Right ventricular systolic function is normal. Left Atria Left atrial chamber dimension is normal. Right Atria Right atrial chamber dimension is normal. Aortic Valve There is mild aortic valve stenosis based on a peak velocity of 213 cm/s, mean gradient of 8 mmHg, and aortic valve area of 1.8 cm2. Cannot determine number of aortic valve leaflets. The aortic valve is not well visualized. There is no aortic valve regurgitation. Pulmonic Valve There is no pulmonic regurgitation. Mitral Valve There is no mitral valve stenosis. There is no mitral valve regurgitation. Tricuspid Valve There is no tricuspid valve regurgitation. Pericardium/Pleural There is no pericardial effusion. Inferior Vena Cava Normal inferior vena cava with <50% collapse upon inspiration consistent with elevated right atrial pressure, 10 mmHg. Aorta The aortic root size at the sinus of Valsalva is not well visualized. Left Ventricular Outflow Tract Name Value Normal LVOT 2D LVOT Diameter 1.9 cm LVOT Doppler LVOT Peak Gradient 7 mmHg LVOT Mean Gradient 3 mmHg LVOT VTI 16 cm LVOT VTI/AV VTI Ratio 0.6 LVOT Stroke Volume 47 ml LVOT CO 4.9 l/min LVO
--- NOTE | ~2020-04-16 | US_ITS ---
EXAMINATION: US venous doppler LE EXAM DATE: 04/16/2020 15:09 INDICATION: Elevated d-dimer. Pulmonary embolism. TECHNIQUE: Multiple grayscale, color flow and Doppler images of the lower extremity deep venous syste ms bilaterally were obtained and reviewed. There is no prior study for comparison. FINDINGS: Right side: The right common femoral, femoral and profunda veins demonstrate normal color flow, respi ratory variation, augmentation and compressibility. Compressibility, color flow confirmed within the right popliteal, posterior tibial, peroneal, and greater saphenous veins. Left side: The left common femoral, femoral and profunda veins demonstrate normal color flow, respira tory variation, augmentation and compressibility. Compressibility, color flow confirmed within the l eft popliteal, posterior tibial, peroneal, and greater saphenous veins. IMPRESSION: 1. No lower extremity deep venous thrombosis bilaterally. Reviewed, dictated and finalized at location B.
--- NOTE | ~2020-04-16 | XR_ITS ---
EXAMINATION: XR chest 2V DATE: 04/22/2020 13:20 INDICATION: Worsening hypoxia TECHNIQUE: AP and lateral views of the chest are obtained. COMPARISON: 04/15/2020 FINDINGS: Bibasilar airspace opacities persist with slight improvement. Small pleural effusions are p resent. There is no pneumothorax. The cardiomediastinal silhouette is normal. There is moderate thora cic spondylosis. IMPRESSION: 1. Improving bibasilar airspace opacities, likely atelectasis. Reviewed, dictated and finalized at location A.
--- NOTE | ~2020-04-16 | XR_ITS ---
EXAMINATION: XR abdomen obstructive series DATE: 04/22/2020 13:20 INDICATION: Nausea and vomiting TECHNIQUE: Upright and supine views of the abdomen were obtained. COMPARISON: None. FINDINGS: No free intraperitoneal gas is identified. There are no dilated loops of bowel. Bibasilar a irspace opacities are consistent with atelectasis versus pneumonia. The visualized portions of the th orax are otherwise unremarkable. There is partially imaged orthopedic hardware in the right femur. IMPRESSION: 1. No free intraperitoneal gas or evidence of bowel obstruction. Reviewed, dictated and finalized at location A.
--- NOTE | ~2020-04-16 | US_ITS ---
EXAMINATION: US right upper quadrant EXAM DATE: 04/19/2020 15:26 INDICATION: Elevated liver function tests. TECHNIQUE: Multiple grayscale and Doppler images of the abdomen right upper quadrant were obtained (b y a technologist who performed the scan) and subsequently reviewed. Comparison is made to prior exami nation from 10/01/2015. FINDINGS: The pancreatic head and body are normal in appearance. The pancreatic tail is not visualized. The l iver has normal echogenicity and contour. There are no focal liver lesions identified. There is no evidence of intrahepatic biliary duct dilation. Portal venous flow was seen in the hepatopedal, nor mal direction and has normal Doppler waveform. No right-sided hydronephrosis. Common bile duct measures 5 mm, which is normal. The gallbladder wall is normal in thickness, with ex pected amount of distention. No sonographic evidence of pericholecystic fluid. There is cholelithia sis. Technologist performing exam reports patient did not demonstrate sonographic Da Silva's sign. P nadia note that this sign is less reliable in patients who have received pain medication. IMPRESSION: Cholelithiasis. Reviewed, dictated and finalized at location B. IMPRESSION: Cholelithiasis.
--- NOTE | 2020-04-16 12:42 | PC.NURSE ---
This patient, Clara Joseph, was admitted to IMU Room 231-01. Patient/family oriented to hospital policies and general routines including ID bracelet, bed and alarms, visiting hours, pain management, procedures, bathroom and other care routines, personal items, smoking policy, room service/diet, and visiting hours. Valuables list has been completed. Information on how to activate the Rapid Response Team has been discussed. Patient/Family are encouraged to report perceived risks to care and to ask questions if they do not understand what they are told or what they should do.
--- NOTE | 2020-04-16 13:22 | PM.IMHP ---
H&P: HPI History of Present Illness Date/Time: 04/16/20 13:22 Chief complaint: pnu,shortness of breath Narrative: Clara Joseph is a 65 year old female Who was a direct admit from [facility]. The patient came to the emergency room at [facility] just 2 days ago on 04/14/2020. She had sustained a nondisplaced transverse fracture of the right acetabular status post fall. She is a chronic alcoholic with chronic liver disease. She was intoxicated when she attempted to get out of bed overnight her daughter assisted her back to bed which woke up in the morning she had severe pain with nausea and dry heaves and headache and dark stool. She was Hemoccult negative. She was given morphine and Dilaudid for the discomfort. Her alcohol level on admission was 154. She is chronically low magnesium her troponin was 0.02. The patient received a banana bag in the emergency room there for alcoholism. The patient continued to call complained of nausea and vomiting. She was given Reglan and Zofran. Her hip fractures non operable. She has a history of having a right IM nailing on 08/19/2013 at [facility] by Dr. Cintron and then again on 10/05/2015 at [facility] by Dr. Bajwa right IM nailing with hardware removal. Patient was given Librium for alcohol dependence. She has cirrhosis of the liver. They were monitoring her H&H. Her liver enzymes were within normal limits. She had no active bleeding. She also admitted to using methamphetamines and marijuana. Patient has COPD and chronic hypoxia and uses oxygen at 3 L per nasal cannula at home. She is also noted to have a abdominal aortic aneurysm. Fusiform abdominal aortic aneurysm measuring at least 3.5 cm. This is being monitored by her primary care doctor. The patient was being treated for pneumonia as well as UTI with Levaquin. The patient was found to have a PE and her right upper lobe. She had been on subcu Lovenox. The patient had a PE in the past approximately 10 years ago. Had occurred after she was intubated due to pneumonia. The patient was brought in on a high-flow oxygen. Her arterial blood gases from today pH was 7.35, CO2 was 42, PO2 was 31. I have some concern that this is probably mixed ABGs and possibly venous as well. Her D-dimer was 3.53. Her potassium was 3.4 today which she is usually chronically low. Patient was admitted to IMU here for higher level of care. I spent over 60 minutes with the patient. Date of service 04/16/2020. Review of Systems Review of Systems: All systems reviewed & are unremarkable except as noted in HPI and below Constitutional: Constitutional: Reports as per HPI and Reports no additional constitutional complaints Eyes: Eyes: Reports as per HPI and Reports no additional eye complaints ENT: Reports system reviewed and no additional complaints, except as documented and Reports Normal hearing present Cardiovascular: Cardiovascular: Reports no additional cardiovascular complaints Respiratory: Respiratory: Reports no additional respiratory complaints and Reports no additional respiratory complaints Gastrointestinal: Gastrointestinal: Reports as per HPI and Reports no additional gastrointestinal complaints Musculoskeletal: Musculoskeletal: Reports no additional musculoskeletal complaints Integumentary/Breasts: Skin/Breast: Reports system reviewed and no additional complaints, except as docu and Reports as per HPI Neurologic: Reports system reviewed and no additional complaints, except as documented, Reports as per HPI and Reports Normal hearing present Psychiatric: Psychiatric: Reports no additional psychiatric complaints and Reports as per HPI Endocrine: Endocrine: Reports no additional endocrine complaints Hematologic/Lymphatic: Hematologic/Lymphatic: Reports no additional hematologic/lymphatic complaints Allergic/Immunologic: Allergic/Immunologic: Reports no additional allergic/immunologic complaints PMFSH Past Me
[2020-04-16 14:17] LABS: Alveolar/Arterial O2 Gradient 197.8 mmHg; Base Excess ABG -1.5 mEq/l (+/-2.0); Fractional Inspired Oxygen 40 %; HCO3 ABG 21.7 mEq/l (22.0-26.0); Oxygen Content ABG 17.2 %vol (16.0-22.0); Oxygen Saturation ABG 87.8 % (95.0-100.0); Oxyhemoglobin 87.1 % THb (90.0-100.0); PCO2 ABG 32.1 mmHg (35.0-45.0); PO2 ABG 50.5 mmHg (80.0-100.0); PO2 FiO2 Ratio Arterial Blood 1.26 %; Total Hemoglobin 14.1 g/dL (12.0-18.0); pH ABG 7.447 (7.350-7.450)
[2020-04-16 14:18] LABS: Site Drawn LEFT RADIAL
[2020-04-16 14:19] LABS: Device NASAL CANNULA; Modified Allen's Test Pass
--- NOTE | 2020-04-16 15:26 | PCPTNOTE ---
Attempted PT evaluation. Unable to complete due to acetabular fracture without weight bearing orders. Spoke with Fidelia Ortiz who will update weight bearing once known.
[2020-04-16] MEDS: POTASSIUM CHLORIDE 10 MEQ TABLET.ER PO (17:02)
[2020-04-16] MEDS: chlordiazePOXIDE 25 MG CAPSULE PO (17:02)
[2020-04-16] MEDS: GABAPENTIN 300 MG CAPSULE PO (17:03)
[2020-04-16] MEDS: MAGNESIUM OXIDE 400 MG TABLET PO (17:03)
[2020-04-16] MEDS: THIAMINE HCL 100 MG TABLET PO (17:03)
[2020-04-16] MEDS: FOLIC ACID 1 MG TABLET PO (17:03)
[2020-04-16] MEDS: NICOTINE (*PBKC) 21 MG PATCH 1 PATCH TRANSDERM (17:03)
[2020-04-16 17:53] LABS: Glucose Point of Care 94 (65-105)
[2020-04-16 19:22] LABS: Alveolar/Arterial O2 Gradient 177.9 mmHg; Base Excess ABG 0.9 mEq/l (+/-2.0); Fractional Inspired Oxygen 36 %; HCO3 ABG 22.4 mEq/l (22.0-26.0); Oxygen Content ABG 17.2 %vol (16.0-22.0); Oxygen Saturation ABG 87.6 % (95.0-100.0); Oxyhemoglobin 86.2 % THb (90.0-100.0); PCO2 ABG 27.8 mmHg (35.0-45.0); PO2 FiO2 Ratio Arterial Blood 1.29 %; Total Hemoglobin 14.2 g/dL (12.0-18.0)
[2020-04-16 19:25] LABS: Device NASAL CANNULA; Modified Allen's Test Pass; PO2 ABG 46.5 mmHg (80.0-100.0); Site Drawn RIGHT RADIAL; pH ABG 7.524 (7.350-7.450)
[2020-04-16] MEDS: chlordiazePOXIDE 25 MG CAPSULE 50 MG PO (20:03)
[2020-04-16] MEDS: ENOXAPARIN 80 MG/0.8 ML SYRINGE 65 MG SUB-Q (20:04)
[2020-04-16 20:16] LABS: Ammonia < 9 umol/L (9-30)
[2020-04-16] MEDS: HALOPERIDOL LACTATE 5 MG/ML VIAL IM (21:41)
[2020-04-17] VITALS (24 sets, daily range): BP systolic 82–121; BP diastolic 53–79; PULSE 73–132; RESP 12–42; TEMP 35.7–37.1; O2SAT 92–100; BMI 23.3
[2020-04-17 00:09] LABS: Glucose Point of Care 91 (65-105)
[2020-04-17] MEDS: chlordiazePOXIDE 25 MG CAPSULE 50 MG PO ×5 (00:48→21:21)
[2020-04-17 04:29] LABS: Alveolar/Arterial O2 Gradient 207.7 mmHg; Base Excess ABG -1.5 mEq/l (+/-2.0); Fractional Inspired Oxygen 42 %; HCO3 ABG 20.2 mEq/l (22.0-26.0); Oxygen Content ABG 17.4 %vol (16.0-22.0); Oxygen Saturation ABG 93.8 % (95.0-100.0); Oxyhemoglobin 91.9 % THb (90.0-100.0); PCO2 ABG 26.6 mmHg (35.0-45.0); PO2 ABG 61.3 mmHg (80.0-100.0); PO2 FiO2 Ratio Arterial Blood 1.46 %; Total Hemoglobin 13.5 g/dL (12.0-18.0); pH ABG 7.499 (7.350-7.450)
[2020-04-17 04:30] LABS: Device NASAL CANNULA; Liters per Minute 5.5 LPM; Modified Allen's Test Pass; Site Drawn RIGHT RADIAL
[2020-04-17 05:48] LABS: Alanine Aminotransferase 21 U/L (4-35); Albumin Level 3.1 g/dL (3.5-5.1); Alkaline Phosphatase 127 U/L (38-126); Anion Gap 10 mmol/L (8-16); Aspartate Amino Transferase 62 U/L (14-36); Bilirubin,Total 0.9 mg/dL (0.2-1.3); Blood Urea Nitrogen 2 mg/dL (7-17); Calcium 7.9 mg/dL (8.4-10.2); Carbon Dioxide 25 mmol/L (22-30); Chloride 97 mmol/L (98-107); Estimated CRCL calculation 135 ml/min; Estimated Glomerular Filt Rate > 60; Glucose 76 mg/dL (65-105); Magnesium 1.6 mg/dL (1.6-2.3); Potassium 2.6 mmol/L (3.4-5.0); Sodium 132 mmol/L (137-145)
--- NOTE | 2020-04-17 09:24 | PCOTNOTE ---
Attempted OT evaluation. Unable to complete due to acetabular fracture without weight bearing orders.Will complete when medically appropriate.
[2020-04-17] MEDS: PANTOPRAZOLE 40 MG TABLET PO (10:46)
[2020-04-17] MEDS: NICOTINE (*PBKC) 21 MG PATCH 1 PATCH TRANSDERM (10:49)
[2020-04-17] MEDS: MAGNESIUM OXIDE 400 MG TABLET PO (10:50)
[2020-04-17] MEDS: POTASSIUM CHLORIDE 10 MEQ TABLET.ER PO (10:50)
[2020-04-17] MEDS: FOLIC ACID 1 MG TABLET PO (10:50)
[2020-04-17] MEDS: GABAPENTIN 300 MG CAPSULE PO ×3 (10:50→17:14)
[2020-04-17] MEDS: POTASSIUM CHLORIDE 20 MEQ TABLET 40 MEQ PO (10:51)
[2020-04-17] MEDS: ENOXAPARIN 80 MG/0.8 ML SYRINGE 65 MG SUB-Q ×2 (10:52→21:20)
[2020-04-17] MEDS: THIAMINE HCL 100 MG TABLET PO (10:52)
[2020-04-17 12:41] LABS: Glucose Point of Care 101 (65-105)
--- NOTE | 2020-04-17 13:36 | PCPTNOTE ---
Called and spoke with charge nurse at [facility] who reports patient is non-weightbearing to Heron KENNEY
[2020-04-17] MEDS: levoFLOXacin 500 MG/D5W 100 ML 500 MG/100 ML BAG 100 MG IVPB (13:51)
--- NOTE | 2020-04-17 16:04 | PM.CNOR ---
Assessment and Plan Assessment and plan (1) Acetabulum fracture, right: Onset Date: 04/13/20 Qualifiers: Encounter type: initial encounter Sublocation of acetabulum: other portion of acetabulum Fracture type: closed Qualified Code(s): S32.491A - Other specified fracture of right acetabulum, initial encounter for closed fracture Code(s): S32.401A - Unspecified fracture of right acetabulum, initial encounter for closed fracture Status: Acute Assessment and Plan: Established patient evaluation status post injury. The history, physical exam and radiographs/ CT reviewed with the patient. known previously for right proximal femur fracture status post intramedullary nail fixation. Now with transverse type acetabular fracture with minimal displacement noted on CT scan. Type of fracture discussed in detail. Treatment options including operative and non operative treatment reviewed . Risks, benefits and alternatives of each treatment discussed in detail . The patient has declined surgical treatment. She has a high risk surgical candidate. Risks of treatment decision discussed in detail. Potential problems with displacement of the fracture, loss of alignment, nonunion, malunion and dysfunction discussed in detail. The patient's questions were answered. They verbalized understanding and agreement. Conservative treatment with immobilization, ice , compression and elevation. PT/OT for rehab as tolerated with nonweightbearing right leg. We will need follow-up radiographs in 5 to 6 weeks. History of Present Illness HPI Consult date: 04/17/20 Requesting physician: Fidelia Ortiz NP Consult reason: fracture ( Right hip) Chief complaint: pnu,shortness of breath Narrative: patient known to me for previous right hip and femur fracture status post intramedullary nicol fixation. Fall last week onto the right side. Patient presented to [facility] and was admitted briefly, she was then transferred to [facility] due to pulmonary embolism. She complains of right hip pain. Been asked to see her for a CT scan which showed a right acetabular fracture. She has been nonweightbearing on the right leg since she has been in the hospital. Patient is somnolent. She is arousable to eat and for some medical care but otherwise sleeping. Review of Systems Constitutional: Constitutional: Denies fever(s) Eyes: Eyes: Denies blurry vision ENT: Reports Normal hearing present Cardiovascular: Cardiovascular: Denies chest pain and Denies dyspnea Respiratory: Respiratory: Denies dyspnea and Denies wheezing Gastrointestinal: Gastrointestinal: Denies abdominal pain Genitourinary: Genitourinary: Denies urinary urgency Musculoskeletal: Musculoskeletal: Reports as per HPI and Denies numbness Integumentary/Breasts: Skin/Breast: Denies changing lesions and Denies sores Neurologic: Reports Normal hearing present, Denies behavioral changes, Denies confusion, Denies numbness and Denies convulsions Psychiatric: Psychiatric: Denies behavioral changes, Denies confusion and Denies hallucinations Endocrine: Endocrine: Denies heat intolerance Hematologic/Lymphatic: Hematologic/Lymphatic: Denies easy bleeding Allergic/Immunologic: Allergic/Immunologic: Denies wheezing PMFSH Past Medical History Medical History AAA (abdominal aortic aneurysm) without rupture 3.5 cm fusiform abdominal aortic aneurysm Age related osteoporosis Alcohol dependence Cirrhosis of liver COPD (chronic obstructive pulmonary disease) DASHA (generalized anxiety disorder) GERD (gastroesophageal reflux disease) History of fracture of right ankle History of humerus fracture left left Hx of pneumothorax Hypothyroidism determined by thyroid function test Moderate major depression, single episode Nicotine dependence with current use Polyosteoarthritis Spontaneous pneumothorax Surgical History
--- NOTE | 2020-04-17 16:18 | PM.IMPN ---
Progress Note: A&P Assessment and Plan (1) Pulmonary embolism: Code(s): I26.99 - Other pulmonary embolism without acute cor pulmonale Status: Acute Assessment and Plan: ------continue Lovenox and warfarin was started. Care coordination is looking into [facility] but she has Medicaid and might not be able to afford this. Echo does not show any right ventricular abnormalities to suggest heart strain. ABG reviewed this morning, patient continued on oxygen. She is alert and oriented x4 and although drowsy, awakens easily. She had a history of having PE many years ago after she was intubated and is a recent infection. The patient does have chronic liver disease with cirrhosis of the However liver enzymes appear to be normal. H&H is normal. (2) Alcohol dependence: Code(s): F10.20 - Alcohol dependence, uncomplicated Status: Chronic Assessment and Plan: ----CIWA up to 22 earlier. She was started on Librium 50 mg every 4 hours and the patient has been pretty sleepy and her last C wall was 3. This time I am going to changes to 50 mg every 8 hours and wean as tolerated. Continue Folic acid thiamin. (3) COPD (chronic obstructive pulmonary disease): Code(s): J44.9 - Chronic obstructive pulmonary disease, unspecified Status: Chronic Assessment and Plan: -----improving, no wheezing. Continue with her albuterol treatments. She is typically on oxygen at 2-3 L at home. The patient had been on high-flow oxygen as well as a BiPAP machine she is not currently on a BiPAP she was removed from that. The patient had been on Solu-Medrol at [place] as well which I do not think needs to be continued at this time (4) DASHA (generalized anxiety disorder): Code(s): F41.1 - Generalized anxiety disorder Status: Acute Assessment and Plan: -----chronic and controlled today (5) AAA (abdominal aortic aneurysm) without rupture: Code(s): I71.4 - Abdominal aortic aneurysm, without rupture Status: Acute Assessment and Plan: -----known, 3.5 cm. Follow-up outpatient for this (6) Nicotine dependence with current use: Code(s): F17.200 - Nicotine dependence, unspecified, uncomplicated Status: Chronic Assessment and Plan: ------Continue with nicotine patch the patient smokes anywhere from 1-2 packs of cigarettes a day. (7) GERD (gastroesophageal reflux disease): Code(s): K21.9 - Gastro-esophageal reflux disease without esophagitis Status: Acute Assessment and Plan: -----Protonix 40 mg daily started (8) Hypothyroidism determined by thyroid function test: Code(s): E03.9 - Hypothyroidism, unspecified; R94.6 - Abnormal results of thyroid function studies Status: Acute Assessment and Plan: -----TSH normal, she is not on any medications at home for this (9) Cirrhosis of liver: Code(s): K74.60 - Unspecified cirrhosis of liver Status: Acute Assessment and Plan: ------ Patient continues to drink daily. Continue to monitor her liver enzymes. (10) Parotid mass: Code(s): K11.8 - Other diseases of salivary glands Status: Acute Assessment and Plan: -----To be checked as outpatient. cervical CT indicates 1.9 cm and 1.0 cm masses in right parotid gland with small hematoma patient will have follow-up with primary care physician after discharge (11) Acetabulum fracture, right: Onset Date: 04/13/20 Code(s): S32.401A - Unspecified fracture of right acetabulum, initial encounter for closed fracture Status: Acute Assessment and Plan: -----high risk for surgery, patient is not opting to undergo surgery at this time. She will need rehab. Continue with current pain medication. (12) Hypokalemia: Code(s): E87.6 - Hypokalemia Status: Chronic Assessment and Plan: -----likely due to poor nutrit
[2020-04-17 16:45] LABS: Hematocrit 38.3 % (37.0-47.0); Hemoglobin 13.8 g/dL (12.0-15.0)
[2020-04-17] MEDS: LACTATED RINGERS 500 ML 999 ML IV CONT (16:47)
[2020-04-17 16:53] LABS: INR 1.3
[2020-04-17 16:55] LABS: Lactic Acid Reflex 1.5 mmol/L (0.7-2.1)
[2020-04-17 16:58] LABS: Glucose Point of Care 95 (65-105)
[2020-04-17 17:04] LABS: Anion Gap 8 mmol/L (8-16); Blood Urea Nitrogen 6 mg/dL (7-17); Calcium 7.9 mg/dL (8.4-10.2); Carbon Dioxide 27 mmol/L (22-30); Chloride 98 mmol/L (98-107); Estimated CRCL calculation 106 ml/min; Estimated Glomerular Filt Rate > 60; Glucose 84 mg/dL (65-105); Potassium 2.6 mmol/L (3.4-5.0); Sodium 133 mmol/L (137-145)
[2020-04-17] MEDS: LACTATED RINGERS 1,000 ML 75 ML IV CONT (17:13)
[2020-04-17] MEDS: MAGNESIUM SULF 2 GM/WATER 50ML 2 GM/50 ML BAG IVPB (17:59)
[2020-04-17] MEDS: WARFARIN (*PBKC) 5 MG TABLET PO (21:21)
[2020-04-17 23:27] LABS: Glucose Point of Care 120 (65-105)
[2020-04-18] VITALS (16 sets, daily range): BP systolic 93–124; BP diastolic 52–84; PULSE 73–117; RESP 18–24; TEMP 35.7–36.7; O2SAT 93–100
[2020-04-18] MEDS: LACTATED RINGERS 1,000 ML 75 ML IV CONT (04:00)
[2020-04-18 04:52] LABS: Hematocrit 37.7 % (37.0-47.0); Hemoglobin 13.6 g/dL (12.0-15.0); Immature Platelet Fraction Pct 6.8 % (0.9-11.2); Mean Corpuscular HGB Conc 36.1 g/dl (32-36); Mean Corpuscular Hemoglobin 37.8 pg (26-34); Mean Corpuscular Volume 104.7 fl (80-100); Mean Platelet Volume 10.8 fl (7.4-10.4); Platelet Count Result 108 k/mm3 (150-375); Red Cell Distribution Width 13.8 % (11.5-14.5); White Blood Count 5.8 K/mm3 (4.5-10.0)
[2020-04-18 05:04] LABS: INR 1.1
[2020-04-18 05:06] LABS: Alanine Aminotransferase 30 U/L (4-35); Albumin Level 2.9 g/dL (3.5-5.1); Alkaline Phosphatase 158 U/L (38-126); Anion Gap 4 mmol/L (8-16); Aspartate Amino Transferase 96 U/L (14-36); Bilirubin,Total 0.8 mg/dL (0.2-1.3); Blood Urea Nitrogen 5 mg/dL (7-17); Calcium 8.2 mg/dL (8.4-10.2); Carbon Dioxide 28 mmol/L (22-30); Chloride 101 mmol/L (98-107); Estimated CRCL calculation 106 ml/min; Estimated Glomerular Filt Rate > 60; Glucose 93 mg/dL (65-105); Potassium 3.3 mmol/L (3.4-5.0); Sodium 133 mmol/L (137-145)
[2020-04-18] MEDS: chlordiazePOXIDE 25 MG CAPSULE 50 MG PO ×3 (06:21→21:54)
[2020-04-18 06:31] LABS: Glucose Point of Care 86 (65-105)
[2020-04-18] MEDS: MAGNESIUM OXIDE 400 MG TABLET PO (09:22)
[2020-04-18] MEDS: PANTOPRAZOLE 40 MG TABLET PO (09:22)
[2020-04-18] MEDS: ENOXAPARIN 80 MG/0.8 ML SYRINGE 65 MG SUB-Q ×2 (09:23→21:56)
[2020-04-18] MEDS: FOLIC ACID 1 MG TABLET PO (09:23)
[2020-04-18] MEDS: GABAPENTIN 300 MG CAPSULE PO ×3 (09:23→18:11)
[2020-04-18] MEDS: THIAMINE HCL 100 MG TABLET PO (09:24)
[2020-04-18] MEDS: NICOTINE (*PBKC) 21 MG PATCH 1 PATCH TRANSDERM (09:25)
--- NOTE | 2020-04-18 12:16 | PM.IMPN ---
Progress Note: A&P Assessment and Plan (1) Pulmonary embolism: Code(s): I26.99 - Other pulmonary embolism without acute cor pulmonale Status: Acute Assessment and Plan: ------continue Lovenox and warfarin. Care coordination is looking into Eliquis but she has Medicaid and might not be able to afford this. Echo does not show any right ventricular abnormalities to suggest heart strain. ABG reviewed this morning, patient continued on oxygen but will wean for sats >90. She has known COPD. She had a history of having PE many years ago after she was intubated and is a recent infection. The patient does have chronic liver disease with cirrhosis of the However liver enzymes appear to be normal. H&H is normal. (2) Alcohol dependence: Code(s): F10.20 - Alcohol dependence, uncomplicated Status: Chronic Assessment and Plan: ----CIWA better today. Was going to decrease librium to Q12 hours but pt was having hallucinations earlier and tremors so we will keep it at 8 and watch her closely in the IMU. She was started on Librium 50 mg every 4 hours yesterday,. (3) COPD (chronic obstructive pulmonary disease): Code(s): J44.9 - Chronic obstructive pulmonary disease, unspecified Status: Chronic Assessment and Plan: -----improving, no wheezing. Continue with her albuterol treatments. She is typically on oxygen at 2-3 L at home with activity only. The patient had been on high-flow oxygen as well as a BiPAP machine she is not currently on a BiPAP she was removed from that. The patient had been on Solu-Medrol at [place] as well which I do not think needs to be continued at this time (4) DASHA (generalized anxiety disorder): Code(s): F41.1 - Generalized anxiety disorder Status: Acute Assessment and Plan: -----chronic and controlled today (5) AAA (abdominal aortic aneurysm) without rupture: Code(s): I71.4 - Abdominal aortic aneurysm, without rupture Status: Acute Assessment and Plan: -----known, 3.5 cm. Follow-up outpatient for this (6) Nicotine dependence with current use: Code(s): F17.200 - Nicotine dependence, unspecified, uncomplicated Status: Chronic Assessment and Plan: ------Continue with nicotine patch the patient smokes anywhere from 1-2 packs of cigarettes a day. (7) GERD (gastroesophageal reflux disease): Code(s): K21.9 - Gastro-esophageal reflux disease without esophagitis Status: Acute Assessment and Plan: -----Protonix 40 mg daily started (8) Hypothyroidism determined by thyroid function test: Code(s): E03.9 - Hypothyroidism, unspecified; R94.6 - Abnormal results of thyroid function studies Status: Acute Assessment and Plan: -----TSH normal, she is not on any medications at home for this (9) Cirrhosis of liver: Code(s): K74.60 - Unspecified cirrhosis of liver Status: Acute Assessment and Plan: ------ Patient continues to drink daily. Continue to monitor her liver enzymes. (10) Parotid mass: Code(s): K11.8 - Other diseases of salivary glands Status: Acute Assessment and Plan: -----To be checked as outpatient. cervical CT indicates 1.9 cm and 1.0 cm masses in right parotid gland with small hematoma patient will have follow-up with primary care physician after discharge (11) Acetabulum fracture, right: Onset Date: 04/13/20 Qualifiers: Encounter type: initial encounter Sublocation of acetabulum: other portion of acetabulum Fracture type: closed Qualified Code(s): S32.491A - Other specified fracture of right acetabulum, initial encounter for closed fracture Code(s): S32.401A - Unspecified fracture of right acetabulum, initial encounter for closed fracture Status: Acute Assessment and Plan: -----high risk for surgery, patient is not opting to unde
[2020-04-18 12:37] LABS: Glucose Point of Care 103 (65-105)
[2020-04-18] MEDS: levoFLOXacin 500 MG/D5W 100 ML 500 MG/100 ML BAG 100 MG IVPB (13:18)
[2020-04-18 17:05] LABS: Glucose Point of Care 135 (65-105)
[2020-04-18] MEDS: WARFARIN (*PBKC) 5 MG TABLET PO (18:11)
[2020-04-18 23:54] LABS: Glucose Point of Care 173 (65-105)
[2020-04-19] VITALS (18 sets, daily range): BP systolic 104–139; BP diastolic 49–91; PULSE 83–103; RESP 16–22; TEMP 35.6–37.4; O2SAT 93–100
[2020-04-19] MEDS: LACTATED RINGERS 1,000 ML 75 ML IV CONT (00:41)
[2020-04-19] MEDS: chlordiazePOXIDE 25 MG CAPSULE 50 MG PO ×2 (05:03→17:02)
[2020-04-19 05:32] LABS: Hematocrit 31.6 % (37.0-47.0); Hemoglobin 11.1 g/dL (12.0-15.0); Mean Corpuscular HGB Conc 35.1 g/dl (32-36); Mean Corpuscular Hemoglobin 36.9 pg (26-34); Mean Platelet Volume 10.9 fl (7.4-10.4); Platelet Count Result 138 k/mm3 (150-375); Red Blood Count 3.01 M/mm3 (4.2-5.4); Red Cell Distribution Width 13.8 % (11.5-14.5); White Blood Count 5.3 K/mm3 (4.5-10.0)
[2020-04-19 05:37] LABS: INR 1.5; Prothrombin Time 17.4 Seconds (11.1-14.7)
[2020-04-19 05:50] LABS: Alanine Aminotransferase 121 U/L (4-35); Albumin Level 2.7 g/dL (3.5-5.1); Alkaline Phosphatase 217 U/L (38-126); Anion Gap 5 mmol/L (8-16); Aspartate Amino Transferase 418 U/L (14-36); Bilirubin,Total 0.6 mg/dL (0.2-1.3); Blood Urea Nitrogen 6 mg/dL (7-17); Calcium 8.7 mg/dL (8.4-10.2); Carbon Dioxide 29 mmol/L (22-30); Chloride 99 mmol/L (98-107); Estimated CRCL calculation 106 ml/min; Estimated Glomerular Filt Rate > 60; Glucose 116 mg/dL (65-105); Magnesium 1.4 mg/dL (1.6-2.3); Potassium 3.2 mmol/L (3.4-5.0); Sodium 133 mmol/L (137-145)
[2020-04-19] MEDS: ONDANSETRON INJ 4 MG/2 ML VIAL IV PUSH ×2 (08:20→23:46)
[2020-04-19] MEDS: NICOTINE (*PBKC) 21 MG PATCH 1 PATCH TRANSDERM (08:20)
[2020-04-19] MEDS: ENOXAPARIN 80 MG/0.8 ML SYRINGE 65 MG SUB-Q ×2 (08:20→20:07)
[2020-04-19 09:49] LABS: Ammonia < 9 umol/L (9-30)
[2020-04-19] MEDS: GABAPENTIN 300 MG CAPSULE PO ×3 (10:14→17:02)
[2020-04-19] MEDS: MAGNESIUM SULF 2 GM/WATER 50ML 2 GM/50 ML BAG IVPB (10:14)
[2020-04-19] MEDS: THIAMINE HCL 100 MG TABLET PO (10:14)
[2020-04-19] MEDS: POTASSIUM CHLORIDE 20 MEQ TABLET 40 MEQ PO (10:14)
[2020-04-19] MEDS: MAGNESIUM OXIDE 400 MG TABLET PO (10:15)
[2020-04-19] MEDS: PANTOPRAZOLE 40 MG TABLET PO (10:15)
[2020-04-19] MEDS: FOLIC ACID 1 MG TABLET PO (10:15)
[2020-04-19 10:39] LABS: Hepatitis B Surface Antigen Negative (Negative)
[2020-04-19 10:45] LABS: HAV RESULT Negative (Negative); Hepatitis B Core IgM Result Negative (Negative)
[2020-04-19 10:56] LABS: Hepatitis C Virus Antibody Negative (Negative)
--- NOTE | 2020-04-19 11:52 | PM.IMPN ---
Progress Note: A&P Assessment and Plan (1) Pulmonary embolism: Code(s): I26.99 - Other pulmonary embolism without acute cor pulmonale Status: Acute Assessment and Plan: ------continue Lovenox and warfarin. INR is 1.5 today. Because of her alcoholism and being on Levaquin, I am going to decrease the amount of warfarin starting tonight. She is unable to afford DOAC. Echo does not show any right ventricular abnormalities to suggest heart strain. ABG reviewed this morning, patient continued on oxygen but will wean for sats >90. She has known COPD. She had a history of having PE many years ago after she was intubated and is a recent infection. (2) Alcohol dependence: Code(s): F10.20 - Alcohol dependence, uncomplicated Status: Chronic Assessment and Plan: ----CIWA better today. Librium will be decreased to q.12 hours and hopefully discontinued by tomorrow. Patient's liver enzymes are more elevated which could be affected by the Librium. She was started on Librium 50 mg every 4 hours yesterday,. (3) COPD (chronic obstructive pulmonary disease): Code(s): J44.9 - Chronic obstructive pulmonary disease, unspecified Status: Chronic Assessment and Plan: -----improving, no wheezing. Continue with her albuterol treatments. She is typically on oxygen at 2-3 L at home with activity only. The patient had been on high-flow oxygen as well as a BiPAP machine she is not currently on a BiPAP she was removed from that. The patient had been on Solu-Medrol at [place] as well which I do not think needs to be continued at this time (4) DASHA (generalized anxiety disorder): Code(s): F41.1 - Generalized anxiety disorder Status: Acute Assessment and Plan: -----chronic and controlled today (5) AAA (abdominal aortic aneurysm) without rupture: Code(s): I71.4 - Abdominal aortic aneurysm, without rupture Status: Acute Assessment and Plan: -----known, 3.5 cm. Follow-up outpatient for this (6) Nicotine dependence with current use: Code(s): F17.200 - Nicotine dependence, unspecified, uncomplicated Status: Chronic Assessment and Plan: ------Continue with nicotine patch the patient smokes anywhere from 1-2 packs of cigarettes a day. (7) GERD (gastroesophageal reflux disease): Code(s): K21.9 - Gastro-esophageal reflux disease without esophagitis Status: Acute Assessment and Plan: -----Protonix 40 mg daily started (8) Hypothyroidism determined by thyroid function test: Code(s): E03.9 - Hypothyroidism, unspecified; R94.6 - Abnormal results of thyroid function studies Status: Acute Assessment and Plan: -----TSH normal, she is not on any medications at home for this (9) Cirrhosis of liver: Code(s): K74.60 - Unspecified cirrhosis of liver Status: Acute Assessment and Plan: ------ Patient continues to drink daily. Her liver enzymes increased significantly over night for unclear reasons. Hepatic screen is negative. Right upper quadrant ultrasound has been ordered. She has known hepatic steatosis. Bilirubin is normal, I do not suspect any stones or obstruction. She does not have pain in this area or hepatosplenomegaly. Her appetite has remained normal. She did have some low blood pressures couple days ago which could be shock liver but seems less likely. She could have congestion due to her PE but her recent echo did not show right heart strain [place] is unlikely as well. Could be reaction from the Librium as this is known to cause elevated liver enzymes. We will wean this off and monitor her in signs at this time. (10) Parotid mass: Code(s): K11.8 - Other diseases of salivary glands Status: Acute Assessment and Plan: -----To be checked as outpatient. cervical CT indicates 1.9 cm and 1.0 cm masses in right parotid gland with sm
[2020-04-19 13:59] LABS: SARS-CoV-2 RNA PCR Negative
[2020-04-19] MEDS: levoFLOXacin 500 MG/D5W 100 ML 500 MG/100 ML BAG 100 MG IVPB (14:11)
[2020-04-19] MEDS: WARFARIN (*PBKC) 3 MG TABLET PO (17:00)
[2020-04-19] MEDS: polyethylene glycoL 3350 17 GM POWD.PACK PO (17:02)
--- NOTE | 2020-04-19 17:13 | PC.NURSE ---
This patient, Clara Joseph, was transferred to [facility] on 04/19/20 at 1713. Personal belongings sent with patient. Belongings list checked and signed with receiving. Report given to DEVIN Sanchez. Appropriate documentation sent with patient.
--- NOTE | 2020-04-19 17:18 | PC.NURSE ---
Transfer received from IMU. Report received from DEVIN Jaime.
[2020-04-19] MEDS: SENNOSIDES 8.6 MG TABLET PO (20:07)
[2020-04-20] VITALS (11 sets, daily range): BP systolic 109–129; BP diastolic 59–88; PULSE 94–109; RESP 16–20; TEMP 36.1–37.1; O2SAT 91–95
[2020-04-20] MEDS: chlordiazePOXIDE 25 MG CAPSULE 50 MG PO (05:04)
[2020-04-20 05:30] LABS: Hematocrit 31.5 % (37.0-47.0); Mean Corpuscular HGB Conc 34.9 g/dl (32-36); Mean Corpuscular Volume 106.1 fl (80-100); Mean Platelet Volume 10.1 fl (7.4-10.4); Platelet Count Result 151 k/mm3 (150-375); Red Blood Count 2.97 M/mm3 (4.2-5.4); Red Cell Distribution Width 14.2 % (11.5-14.5); White Blood Count 5.7 K/mm3 (4.5-10.0)
[2020-04-20 05:43] LABS: Alanine Aminotransferase 126 U/L (4-35); Albumin Level 2.7 g/dL (3.5-5.1); Alkaline Phosphatase 251 U/L (38-126); Anion Gap 5 mmol/L (8-16); Aspartate Amino Transferase 322 U/L (14-36); Bilirubin,Total 0.5 mg/dL (0.2-1.3); Blood Urea Nitrogen 6 mg/dL (7-17); Calcium 8.7 mg/dL (8.4-10.2); Carbon Dioxide 30 mmol/L (22-30); Chloride 97 mmol/L (98-107); Estimated CRCL calculation 87 ml/min; Estimated Glomerular Filt Rate > 60; Glucose 138 mg/dL (65-105); Magnesium 1.4 mg/dL (1.6-2.3); Potassium 3.5 mmol/L (3.4-5.0); Sodium 132 mmol/L (137-145)
[2020-04-20 05:53] LABS: INR 2.6; Prothrombin Time 27.5 Seconds (11.1-14.7)
[2020-04-20 06:37] LABS: Band Neutrophils Percent 2 % (0-6); Eosinophils Absolute Manual 0.05 K/mm3 (0.02-0.5); Eosinophils Percent Manual 1 % (0-4); Lymphocytes Absolute Manual 1.71 K/mm3 (1.1-4.5); Monocytes Absolute Manual 0.74 K/mm3 (0.1-0.90); Monocytes Percent Manual 13 % (3-9); Neutrophils Absolute Manual 3.19 K/mm3 (1.7-7.2); Neutrophils Percent Manual 54 % (46-73); Total Cells Counted 100
[2020-04-20 06:38] LABS: Platelet Estimate Adequate (Adequate)
[2020-04-20 07:49] LABS: Glucose Point of Care 121 (65-105)
[2020-04-20] MEDS: FOLIC ACID 1 MG TABLET PO (08:17)
[2020-04-20] MEDS: MAGNESIUM OXIDE 400 MG TABLET PO (08:17)
[2020-04-20] MEDS: THIAMINE HCL 100 MG TABLET PO (08:17)
[2020-04-20] MEDS: GABAPENTIN 300 MG CAPSULE PO ×3 (08:17→17:13)
[2020-04-20] MEDS: NICOTINE (*PBKC) 21 MG PATCH 1 PATCH TRANSDERM (08:17)
[2020-04-20] MEDS: ENOXAPARIN 80 MG/0.8 ML SYRINGE 65 MG SUB-Q ×2 (08:17→22:08)
[2020-04-20] MEDS: polyethylene glycoL 3350 17 GM POWD.PACK PO (08:19)
[2020-04-20] MEDS: PANTOPRAZOLE 40 MG TABLET PO (08:29)
[2020-04-20] MEDS: MAGNESIUM SULF 2 GM/WATER 50ML 2 GM/50 ML BAG IVPB (10:27)
[2020-04-20 11:42] LABS: Glucose Point of Care 128 (65-105)
--- NOTE | 2020-04-20 12:21 | PCNFU ---
Nutrition Follow-Up Complete: Suboptimal oral intake related to multiple medical issues as evidenced by intakes 25-50% thus far. Goal: Patient to consume 50% of meals/supplements or greater. Progressing towards goal. We will continue current goal. Pt current nutrition is Heart Healthy. Nutrition recommendation: Agree Last recorded weight is 66.6 kg. Bowel Motility:+BM reported 04/17 Labs Reviewed:NA 132,Alb 2.7, Glu 138,BUN 6,Cr 0.5 Meds Noted:Lovenox,Miralax,Protonix,Mag Oxide,Vit B1,Folic Acid Additional Notes: Patient seen today for nutrition follow up, eating some soup for lunch and also placed an order for some pasta. She has been having fair intake about 50% of meals. Diet supplements remain on trays providing an additional 220 kcals and 9 gms protein. Agree with diet orders. PO intake is encouraged. Monitoring: Follow up every 5 days.
[2020-04-20] MEDS: levoFLOXacin 500 MG/D5W 100 ML 500 MG/100 ML BAG 100 MG IVPB (13:29)
--- NOTE | 2020-04-20 16:17 | PM.IMPN ---
Progress Note: A&P Assessment and Plan (1) Pulmonary embolism: Code(s): I26.99 - Other pulmonary embolism without acute cor pulmonale Status: Acute Assessment and Plan: ------continue Lovenox and warfarin. INR is 2.6 today and i'm actually going to hold warfarin tonight since her INR increased so quickly. She is on abx and has abnormal liver function which can worsen her INR. She is unable to afford DOAC. Echo does not show any right ventricular abnormalities to suggest heart strain. I have asked nursing staff to continue to wean o2. She had a history of having PE many years ago after she was intubated and is a recent infection. (2) Alcohol dependence: Code(s): F10.20 - Alcohol dependence, uncomplicated Status: Chronic Assessment and Plan: ----No signs of withdraw. Librium discontinued. Patient's liver enzymes are elevated which could be affected by the Librium. She was started on Librium 50 mg every 4 hours on admission. (3) COPD (chronic obstructive pulmonary disease): Code(s): J44.9 - Chronic obstructive pulmonary disease, unspecified Status: Chronic Assessment and Plan: -----improving, no wheezing. Continue with her albuterol treatments. She is typically on oxygen at 2-3 L at home with activity only. The patient had been on high-flow oxygen as well as a BiPAP machine she is not currently on a BiPAP she was removed from that. The patient had been on Solu-Medrol at [facility] as well which I do not think needs to be continued at this time (4) DASHA (generalized anxiety disorder): Code(s): F41.1 - Generalized anxiety disorder Status: Acute Assessment and Plan: -----chronic and controlled today (5) AAA (abdominal aortic aneurysm) without rupture: Code(s): I71.4 - Abdominal aortic aneurysm, without rupture Status: Acute Assessment and Plan: -----known, 3.5 cm. Follow-up outpatient for this (6) Nicotine dependence with current use: Code(s): F17.200 - Nicotine dependence, unspecified, uncomplicated Status: Chronic Assessment and Plan: ------Continue with nicotine patch the patient smokes anywhere from 1-2 packs of cigarettes a day. (7) GERD (gastroesophageal reflux disease): Code(s): K21.9 - Gastro-esophageal reflux disease without esophagitis Status: Acute Assessment and Plan: -----Protonix 40 mg daily started (8) Hypothyroidism determined by thyroid function test: Code(s): E03.9 - Hypothyroidism, unspecified; R94.6 - Abnormal results of thyroid function studies Status: Acute Assessment and Plan: -----TSH normal, she is not on any medications at home for this (9) Cirrhosis of liver: Code(s): K74.60 - Unspecified cirrhosis of liver Status: Acute Assessment and Plan: ------ Patient continues to drink daily. Her liver enzymes increased significantly 04/19 for unclear reasons. Hepatic screen is negative. Right upper quadrant ultrasound shows gallstones but no dialated duct or elevated bili. She has known hepatic steatosis. Bilirubin is normal and she is without pain, I do not suspect any stones or obstruction. She does not have pain in this area or hepatosplenomegaly. Her appetite has remained normal. She did have some low blood pressures couple days ago which could be shock liver but seems less likely. She could have congestion due to her PE but her recent echo did not show right heart strain which is unlikely as well. Could be reaction from the Librium as this is known to cause elevated liver enzymes. This has been stopped and her liver enzymes have improved a little. We will trend these. If they do not improve, may consider a GI consult. Monitor INR. (10) Parotid mass: Code(s): K11.8 - Other diseases of salivary glands Status: Acute Assessment and Plan: -----To be checked as outpatient. cer
[2020-04-20] MEDS: MAGNESIUM HYDROXIDE SUSP 30 ML UDC PO (17:13)
[2020-04-20] MEDS: SENNOSIDES 8.6 MG TABLET PO (22:09)
[2020-04-21] VITALS (10 sets, daily range): BP systolic 111–155; BP diastolic 70–86; PULSE 84–106; RESP 18–20; TEMP 35.9–36.7; O2SAT 90–96
[2020-04-21 06:07] LABS: Hematocrit 30.7 % (37.0-47.0); Hemoglobin 10.7 g/dL (12.0-15.0); Mean Corpuscular HGB Conc 34.9 g/dl (32-36); Mean Corpuscular Hemoglobin 37.2 pg (26-34); Mean Corpuscular Volume 106.6 fl (80-100); Mean Platelet Volume 10.1 fl (7.4-10.4); Platelet Count Result 183 k/mm3 (150-375); Red Blood Count 2.88 M/mm3 (4.2-5.4); Red Cell Distribution Width 14.4 % (11.5-14.5); White Blood Count 7.4 K/mm3 (4.5-10.0)
[2020-04-21 06:17] LABS: INR 1.9; Prothrombin Time 21.5 Seconds (11.1-14.7)
[2020-04-21 06:30] LABS: Alanine Aminotransferase 147 U/L (4-35); Albumin Level 2.8 g/dL (3.5-5.1); Alkaline Phosphatase 310 U/L (38-126); Anion Gap 6 mmol/L (8-16); Aspartate Amino Transferase 268 U/L (14-36); Bilirubin,Total 0.6 mg/dL (0.2-1.3); Blood Urea Nitrogen 6 mg/dL (7-17); Calcium 8.4 mg/dL (8.4-10.2); Carbon Dioxide 31 mmol/L (22-30); Chloride 96 mmol/L (98-107); Estimated CRCL calculation 106 ml/min; Estimated Glomerular Filt Rate > 60; Glucose 121 mg/dL (65-105); Potassium 3.3 mmol/L (3.4-5.0); Sodium 133 mmol/L (137-145)
[2020-04-21] MEDS: THIAMINE HCL 100 MG TABLET PO (08:01)
[2020-04-21] MEDS: POTASSIUM CHLORIDE 20 MEQ TABLET 40 MEQ PO (08:01)
[2020-04-21] MEDS: polyethylene glycoL 3350 17 GM POWD.PACK PO (08:01)
[2020-04-21] MEDS: FOLIC ACID 1 MG TABLET PO (08:01)
[2020-04-21] MEDS: PANTOPRAZOLE 40 MG TABLET PO (08:02)
[2020-04-21] MEDS: NICOTINE (*PBKC) 21 MG PATCH 1 PATCH TRANSDERM (08:02)
[2020-04-21] MEDS: ENOXAPARIN 80 MG/0.8 ML SYRINGE 65 MG SUB-Q ×2 (08:03→22:10)
[2020-04-21] MEDS: MAGNESIUM OXIDE 400 MG TABLET PO (08:03)
[2020-04-21] MEDS: GABAPENTIN 300 MG CAPSULE PO ×3 (08:03→16:45)
[2020-04-21] MEDS: levoFLOXacin 500 MG/D5W 100 ML 500 MG/100 ML BAG 100 MG IVPB (13:06)
--- NOTE | 2020-04-21 13:25 | PM.IMPN ---
Progress Note: A&P Assessment and Plan (1) Pulmonary embolism: Code(s): I26.99 - Other pulmonary embolism without acute cor pulmonale Status: Acute Assessment and Plan: ------continue Lovenox and warfarin. INR 1.9 today. She is on abx and has abnormal liver function which can worsen her INR. She is unable to afford DOAC. Echo does not show any right ventricular abnormalities to suggest heart strain. I have asked nursing staff to continue to wean o2. She had a history of having PE many years ago after she was intubated and is a recent infection. (2) Alcohol dependence: Code(s): F10.20 - Alcohol dependence, uncomplicated Status: Chronic Assessment and Plan: ----No signs of withdraw. Librium discontinued. Patient's liver enzymes are elevated which could be affected by the Librium. She was started on Librium 50 mg every 4 hours on admission. (3) COPD (chronic obstructive pulmonary disease): Code(s): J44.9 - Chronic obstructive pulmonary disease, unspecified Status: Chronic Assessment and Plan: -----improving, no wheezing. Continue with her albuterol treatments. She is typically on oxygen at 2-3 L at home with activity only. The patient had been on high-flow oxygen as well as a BiPAP machine she is not currently on a BiPAP she was removed from that. The patient had been on Solu-Medrol at [place] as well which I do not think needs to be continued at this time (4) DASHA (generalized anxiety disorder): Code(s): F41.1 - Generalized anxiety disorder Status: Acute Assessment and Plan: -----chronic and controlled today (5) AAA (abdominal aortic aneurysm) without rupture: Code(s): I71.4 - Abdominal aortic aneurysm, without rupture Status: Acute Assessment and Plan: -----known, 3.5 cm. Follow-up outpatient for this (6) Nicotine dependence with current use: Code(s): F17.200 - Nicotine dependence, unspecified, uncomplicated Status: Chronic Assessment and Plan: ------Continue with nicotine patch the patient smokes anywhere from 1-2 packs of cigarettes a day. (7) GERD (gastroesophageal reflux disease): Code(s): K21.9 - Gastro-esophageal reflux disease without esophagitis Status: Acute Assessment and Plan: -----Protonix 40 mg daily started (8) Hypothyroidism determined by thyroid function test: Code(s): E03.9 - Hypothyroidism, unspecified; R94.6 - Abnormal results of thyroid function studies Status: Acute Assessment and Plan: -----TSH normal, she is not on any medications at home for this (9) Cirrhosis of liver: Code(s): K74.60 - Unspecified cirrhosis of liver Status: Acute Assessment and Plan: ------ Patient continues to drink daily. Her liver enzymes increased significantly 04/19 for unclear reasons. Hepatic screen is negative. Right upper quadrant ultrasound shows gallstones but no dialated duct or elevated bili. She has known hepatic steatosis. Bilirubin is normal and she is without pain, I do not suspect any stones or obstruction. She does not have pain in this area or hepatosplenomegaly. Her appetite has remained normal. She did have some low blood pressures couple days ago which could be shock liver but seems less likely. She could have congestion due to her PE but her recent echo did not show right heart strain which is unlikely as well. Could be reaction from the Librium as this is known to cause elevated liver enzymes. This has been stopped and her liver enzymes have improved a little although alk phos is climbing. We will trend these. If they do not improve, may consider a GI consult. Monitor INR. (10) Parotid mass: Code(s): K11.8 - Other diseases of salivary glands Status: Acute Assessment and Plan: -----To be checked as outpatient. cervical CT indicates 1.9 cm and 1.0 cm masses in right paro
[2020-04-21] MEDS: WARFARIN (*PBKC) 2 MG TABLET PO (16:46)
[2020-04-21] MEDS: SENNOSIDES 8.6 MG TABLET PO (22:10)
[2020-04-22] VITALS (14 sets, daily range): BP systolic 98–155; BP diastolic 62–86; PULSE 67–99; RESP 18–22; TEMP 36.8–37.1; O2SAT 82–99
[2020-04-22] MEDS: ONDANSETRON INJ 4 MG/2 ML VIAL IV PUSH (03:35)
[2020-04-22 05:54] LABS: Hematocrit 33.5 % (37.0-47.0); Hemoglobin 11.8 g/dL (12.0-15.0); Mean Corpuscular HGB Conc 35.2 g/dl (32-36); Mean Platelet Volume 10.2 fl (7.4-10.4); Platelet Count Result 211 k/mm3 (150-375); Red Blood Count 3.19 M/mm3 (4.2-5.4); Red Cell Distribution Width 14.5 % (11.5-14.5); White Blood Count 7.8 K/mm3 (4.5-10.0)
[2020-04-22 06:02] LABS: INR 1.5; Prothrombin Time 17.3 Seconds (11.1-14.7)
[2020-04-22 06:10] LABS: Alanine Aminotransferase 127 U/L (4-35); Albumin Level 3.2 g/dL (3.5-5.1); Alkaline Phosphatase 355 U/L (38-126); Anion Gap 7 mmol/L (8-16); Aspartate Amino Transferase 128 U/L (14-36); Bilirubin,Total 0.6 mg/dL (0.2-1.3); Blood Urea Nitrogen 6 mg/dL (7-17); Calcium 9.2 mg/dL (8.4-10.2); Carbon Dioxide 31 mmol/L (22-30); Chloride 97 mmol/L (98-107); Estimated CRCL calculation 109 ml/min; Estimated Glomerular Filt Rate > 60; Glucose 134 mg/dL (65-105); Magnesium 1.5 mg/dL (1.6-2.3); Potassium 3.8 mmol/L (3.4-5.0); Sodium 135 mmol/L (137-145)
[2020-04-22] MEDS: ENOXAPARIN 80 MG/0.8 ML SYRINGE 65 MG SUB-Q ×2 (09:21→21:49)
[2020-04-22] MEDS: polyethylene glycoL 3350 17 GM POWD.PACK PO (09:21)
[2020-04-22] MEDS: MAGNESIUM OXIDE 400 MG TABLET PO (09:21)
[2020-04-22] MEDS: PANTOPRAZOLE 40 MG TABLET PO (09:21)
[2020-04-22] MEDS: FOLIC ACID 1 MG TABLET PO (09:21)
[2020-04-22] MEDS: THIAMINE HCL 100 MG TABLET PO (09:21)
[2020-04-22] MEDS: MINERAL OIL 30 ML UDC PO (09:21)
[2020-04-22] MEDS: NICOTINE (*PBKC) 21 MG PATCH 1 PATCH TRANSDERM (09:22)
[2020-04-22] MEDS: GABAPENTIN 300 MG CAPSULE PO ×3 (09:23→17:15)
[2020-04-22] MEDS: MAGNESIUM SULFATE 3GM/D5W100ML 3 GM/100 ML BAG IVPB (10:04)
--- NOTE | 2020-04-22 12:51 | PM.IMPN ---
Progress Note: A&P Assessment and Plan (1) Pulmonary embolism: Code(s): I26.99 - Other pulmonary embolism without acute cor pulmonale Status: Acute Assessment and Plan: ------continue Lovenox and warfarin. INR 1.5 today. She is on abx and has abnormal liver function which can worsen her INR. She is unable to afford DOAC. Echo does not show any right ventricular abnormalities to suggest heart strain. Unable to wean oxygen. She has oxygen at home but just p.r.n. since she has COPD. She will likely need a new home O2 evaluation if she goes home. She had a history of having PE many years ago after she was intubated and is a recent infection. (2) Alcohol dependence: Code(s): F10.20 - Alcohol dependence, uncomplicated Status: Chronic Assessment and Plan: ----No signs of withdraw. Librium discontinued. Patient's liver enzymes are elevated which could be affected by the Librium. She was started on Librium 50 mg every 4 hours on admission. (3) COPD (chronic obstructive pulmonary disease): Code(s): J44.9 - Chronic obstructive pulmonary disease, unspecified Status: Chronic Assessment and Plan: -----more wheezing today and hypoxia noted. I have ordered a chest x-ray. Hypoxia could be from her baseline COPD on top of a pulmonary emboli now. I do not suspect worsening pneumonia and she will finish off her antibiotics tomorrow. Continue with her albuterol treatments. She is typically on oxygen at 2-3 L at home with activity only. The patient had been on high-flow oxygen as well as a BiPAP machine she is not currently on a BiPAP she was removed from that. (4) DASHA (generalized anxiety disorder): Code(s): F41.1 - Generalized anxiety disorder Status: Acute Assessment and Plan: -----chronic and controlled today (5) AAA (abdominal aortic aneurysm) without rupture: Code(s): I71.4 - Abdominal aortic aneurysm, without rupture Status: Acute Assessment and Plan: -----known, 3.5 cm. Follow-up outpatient for this (6) Nicotine dependence with current use: Code(s): F17.200 - Nicotine dependence, unspecified, uncomplicated Status: Chronic Assessment and Plan: ------Continue with nicotine patch the patient smokes anywhere from 1-2 packs of cigarettes a day. (7) GERD (gastroesophageal reflux disease): Code(s): K21.9 - Gastro-esophageal reflux disease without esophagitis Status: Acute Assessment and Plan: -----Protonix 40 mg daily started (8) Hypothyroidism determined by thyroid function test: Code(s): E03.9 - Hypothyroidism, unspecified; R94.6 - Abnormal results of thyroid function studies Status: Acute Assessment and Plan: -----TSH normal, she is not on any medications at home for this (9) Cirrhosis of liver: Code(s): K74.60 - Unspecified cirrhosis of liver Status: Acute Assessment and Plan: ------ Patient continues to drink daily. Her liver enzymes increased significantly 04/19 for unclear reasons. Hepatic screen is negative. Right upper quadrant ultrasound shows gallstones but no dialated duct or elevated bili. She has known hepatic steatosis. Bilirubin is normal and she is without pain, I do not suspect any stones or obstruction. She does not have pain in this area or hepatosplenomegaly. She is not having nausea and vomiting which can be secondary to liver failure or possibly constipation. May consider HIDA scan if she does not improved tomorrow. She did have some low blood pressures couple days ago which could be shock liver but seems less likely. She could have congestion due to her PE but her recent echo did not show right heart strain which is unlikely as well. Could be reaction from the Librium as this is known to cause elevated liver enzymes. This has been stopped and her liver enzymes have improved a little although alk phos is cl
[2020-04-22] MEDS: levoFLOXacin 500 MG/D5W 100 ML 500 MG/100 ML BAG 100 MG IVPB (13:31)
[2020-04-22 13:47] LABS: Lipase 179 U/L (23-300)
[2020-04-22] MEDS: WARFARIN (*PBKC) 2 MG TABLET PO (17:16)
[2020-04-22] MEDS: SENNOSIDES 8.6 MG TABLET PO (21:43)
[2020-04-23] VITALS (10 sets, daily range): BP systolic 105–118; BP diastolic 55–73; PULSE 88–99; RESP 16–18; TEMP 36.5–37.3; O2SAT 87–94
[2020-04-23 05:59] LABS: Hematocrit 31.1 % (37.0-47.0); Hemoglobin 10.7 g/dL (12.0-15.0); Mean Corpuscular HGB Conc 34.4 g/dl (32-36); Mean Corpuscular Hemoglobin 37.2 pg (26-34); Mean Platelet Volume 10.7 fl (7.4-10.4); Platelet Count Result 217 k/mm3 (150-375); Red Blood Count 2.88 M/mm3 (4.2-5.4); Red Cell Distribution Width 14.6 % (11.5-14.5); White Blood Count 7.2 K/mm3 (4.5-10.0)
[2020-04-23 06:10] LABS: Alanine Aminotransferase 82 U/L (4-35); Alkaline Phosphatase 301 U/L (38-126); Anion Gap 6 mmol/L (8-16); Aspartate Amino Transferase 85 U/L (14-36); Bilirubin,Total 0.3 mg/dL (0.2-1.3); Blood Urea Nitrogen 6 mg/dL (7-17); Calcium 8.6 mg/dL (8.4-10.2); Carbon Dioxide 30 mmol/L (22-30); Chloride 100 mmol/L (98-107); Estimated CRCL calculation 87 ml/min; Estimated Glomerular Filt Rate > 60; Glucose 106 mg/dL (65-105); Magnesium 1.6 mg/dL (1.6-2.3); Potassium 3.5 mmol/L (3.4-5.0); Sodium 136 mmol/L (137-145)
[2020-04-23 06:19] LABS: INR 1.5; Prothrombin Time 17.9 Seconds (11.1-14.7)
[2020-04-23] MEDS: PANTOPRAZOLE 40 MG TABLET PO (09:31)
[2020-04-23] MEDS: GABAPENTIN 300 MG CAPSULE PO ×3 (09:31→16:59)
[2020-04-23] MEDS: THIAMINE HCL 100 MG TABLET PO (09:31)
[2020-04-23] MEDS: FOLIC ACID 1 MG TABLET PO (09:31)
[2020-04-23] MEDS: MAGNESIUM OXIDE 400 MG TABLET PO (09:31)
[2020-04-23] MEDS: NICOTINE (*PBKC) 21 MG PATCH 1 PATCH TRANSDERM (09:32)
[2020-04-23] MEDS: MINERAL OIL 30 ML UDC PO (09:32)
[2020-04-23] MEDS: polyethylene glycoL 3350 17 GM POWD.PACK PO (09:32)
[2020-04-23] MEDS: ENOXAPARIN 80 MG/0.8 ML SYRINGE 65 MG SUB-Q ×2 (09:55→22:14)
[2020-04-23 12:40] LABS: SARS-CoV-2 RNA PCR Negative
[2020-04-23] MEDS: levoFLOXacin 500 MG/D5W 100 ML 500 MG/100 ML BAG 100 MG IVPB (13:01)
--- NOTE | 2020-04-23 14:11 | PM.IMPN ---
Progress Note: A&P Assessment and Plan (1) Pulmonary embolism: Code(s): I26.99 - Other pulmonary embolism without acute cor pulmonale Status: Acute Assessment and Plan: ------will increase the warfarin dose at this time. She is on abx and has abnormal liver function which can worsen her INR. She is unable to afford DOAC. Echo does not show any right ventricular abnormalities to suggest heart strain. Unable to wean oxygen. She has oxygen at home but just p.r.n. since she has COPD. She is going to a facility so she does not need a home oxygen evaluation as she can continue oxygen there. She had a history of having PE many years ago after she was intubated and is a recent infection. (2) Alcohol dependence: Code(s): F10.20 - Alcohol dependence, uncomplicated Status: Chronic Assessment and Plan: ----No signs of withdraw. Librium discontinued. Patient's liver enzymes are elevated which could be affected by the Librium. She was started on Librium 50 mg every 4 hours on admission. (3) COPD (chronic obstructive pulmonary disease): Code(s): J44.9 - Chronic obstructive pulmonary disease, unspecified Status: Chronic Assessment and Plan: -----Pt off o2 today but she did have some wheezing. CXR looks okay. Hypoxia could be from her baseline COPD on top of a pulmonary emboli now. I do not suspect worsening pneumonia and she will finish her abx today. Continue with her albuterol treatments. She is typically on oxygen at 2-3 L at home with activity only. (4) DASHA (generalized anxiety disorder): Code(s): F41.1 - Generalized anxiety disorder Status: Acute Assessment and Plan: -----chronic and controlled today (5) AAA (abdominal aortic aneurysm) without rupture: Code(s): I71.4 - Abdominal aortic aneurysm, without rupture Status: Acute Assessment and Plan: -----known, 3.5 cm. Follow-up outpatient for this (6) Nicotine dependence with current use: Code(s): F17.200 - Nicotine dependence, unspecified, uncomplicated Status: Chronic Assessment and Plan: ------Continue with nicotine patch the patient smokes anywhere from 1-2 packs of cigarettes a day. (7) GERD (gastroesophageal reflux disease): Code(s): K21.9 - Gastro-esophageal reflux disease without esophagitis Status: Acute Assessment and Plan: -----Protonix 40 mg daily started (8) Hypothyroidism determined by thyroid function test: Code(s): E03.9 - Hypothyroidism, unspecified; R94.6 - Abnormal results of thyroid function studies Status: Acute Assessment and Plan: -----TSH normal, she is not on any medications at home for this (9) Cirrhosis of liver: Code(s): K74.60 - Unspecified cirrhosis of liver Status: Acute Assessment and Plan: ------Much improved. Patient continues to drink daily. Her liver enzymes increased significantly 04/19 for unclear reasons. Hepatic screen is negative. Right upper quadrant ultrasound shows gallstones but no dialated duct or elevated bili. She has known hepatic steatosis. Bilirubin is normal and she is without pain, I do not suspect any stones or obstruction. She does not have pain in this area or hepatosplenomegaly. No N/V. She did have some low blood pressures couple days ago which could be shock liver but seems less likely. She could have congestion due to her PE but her recent echo did not show right heart strain which is unlikely as well. Could be reaction from the Librium as this is known to cause elevated liver enzymes. This has been stopped and her liver enzymes have improved although alk phos is climbing (could be due to fracture). We will trend these. (10) Parotid mass: Code(s): K11.8 - Other diseases of salivary glands Status: Acute Assessment and Plan: -----To be checked as outpatient. cervical CT indicates 1.9 cm a
[2020-04-23] MEDS: WARFARIN (*PBKC) 3 MG TABLET PO (16:59)
[2020-04-23] MEDS: SENNOSIDES 8.6 MG TABLET PO (22:14)
[2020-04-23] MEDS: ACETAMINOPHEN 325 MG TABLET 650 MG PO (23:40)
[2020-04-24 06:07] LABS: INR 1.5
[2020-04-24 06:13] LABS: Alanine Aminotransferase 65 U/L (4-35); Alkaline Phosphatase 310 U/L (38-126); Aspartate Amino Transferase 59 U/L (14-36); Bilirubin,Total 0.4 mg/dL (0.2-1.3); Magnesium 1.5 mg/dL (1.6-2.3)
[2020-04-24 08:30] VITALS: BP 105/66; PULSE 88
[2020-04-24] MEDS: THIAMINE HCL 100 MG TABLET PO (08:36)
[2020-04-24] MEDS: NICOTINE (*PBKC) 21 MG PATCH 1 PATCH TRANSDERM (08:36)
[2020-04-24] MEDS: MAGNESIUM OXIDE 400 MG TABLET PO (08:36)
[2020-04-24] MEDS: PANTOPRAZOLE 40 MG TABLET PO (08:36)
[2020-04-24] MEDS: GABAPENTIN 300 MG CAPSULE PO ×2 (08:36→12:34)
[2020-04-24] MEDS: MINERAL OIL 30 ML UDC PO (08:36)
[2020-04-24] MEDS: ENOXAPARIN 80 MG/0.8 ML SYRINGE 65 MG SUB-Q (08:36)
[2020-04-24] MEDS: FOLIC ACID 1 MG TABLET PO (08:36)
[2020-04-24] MEDS: polyethylene glycoL 3350 17 GM POWD.PACK PO (08:37)
[2020-04-24] MEDS: MAGNESIUM SULF 2 GM/WATER 50ML 2 GM/50 ML BAG IVPB (08:37)
[2020-04-24 08:58] VITALS: O2SAT 93
--- NOTE | 2020-04-24 11:56 | PM.DS ---
DS: Admitting Diagnosis Admitting Diagnosis Admitting Diagnosis: pnu,shortness of breath DS: Discharge Diagnosis Discharge Diagnosis (1) Pulmonary embolism: Code(s): I26.99 - Other pulmonary embolism without acute cor pulmonale Status: Acute Assessment and Plan: ------on warfarin but still not therapeutic at 1.5. Continue therapy and INR monitoring at the facility. She is unable to afford DOAC. Echo does not show any right ventricular abnormalities to suggest heart strain. Off o2. She has oxygen at home but just p.r.n. since she has COPD. She had a history of having PE many years ago after she was intubated and is a recent infection. (2) Alcohol dependence: Code(s): F10.20 - Alcohol dependence, uncomplicated Status: Chronic Assessment and Plan: ----No signs of withdraw. Was on Librium but increased her liver enzymes up to the 400s, so this was stopped and her enzymes improved. (3) COPD (chronic obstructive pulmonary disease): Code(s): J44.9 - Chronic obstructive pulmonary disease, unspecified Status: Chronic Assessment and Plan: ----- Hypoxia could be from her baseline COPD on top of a pulmonary emboli now. I do not suspect worsening pneumonia and she finished her abx. (4) DASHA (generalized anxiety disorder): Code(s): F41.1 - Generalized anxiety disorder Status: Acute Assessment and Plan: -----chronic and controlled today (5) AAA (abdominal aortic aneurysm) without rupture: Code(s): I71.4 - Abdominal aortic aneurysm, without rupture Status: Acute Assessment and Plan: -----known, 3.5 cm. Follow-up outpatient for this (6) Nicotine dependence with current use: Code(s): F17.200 - Nicotine dependence, unspecified, uncomplicated Status: Chronic Assessment and Plan: ------Continue with nicotine patch the patient smokes anywhere from 1-2 packs of cigarettes a day. (7) GERD (gastroesophageal reflux disease): Code(s): K21.9 - Gastro-esophageal reflux disease without esophagitis Status: Acute (8) Hypothyroidism determined by thyroid function test: Code(s): E03.9 - Hypothyroidism, unspecified; R94.6 - Abnormal results of thyroid function studies Status: Acute Assessment and Plan: -----TSH normal, she is not on any medications at home for this (9) Cirrhosis of liver: Code(s): K74.60 - Unspecified cirrhosis of liver Status: Acute Assessment and Plan: ------Much improved. Patient continues to drink daily. Her liver enzymes increased significantly 04/19 for unclear reasons. Hepatic screen is negative. Right upper quadrant ultrasound shows gallstones but no dialated duct or elevated bili. She has known hepatic steatosis. Bilirubin is normal and she is without pain, I do not suspect any stones or obstruction. She does not have pain in this area or hepatosplenomegaly. No N/V. She did have some low blood pressures couple days ago which could be shock liver but seems less likely. She could have congestion due to her PE but her recent echo did not show right heart strain which is unlikely as well. Could be reaction from the Librium as this is known to cause elevated liver enzymes and they improved when librium was stopped. alk phos elevated (could be due to fracture). We will trend these. (10) Parotid mass: Code(s): K11.8 - Other diseases of salivary glands Status: Acute Assessment and Plan: -----To be checked as outpatient. cervical CT indicates 1.9 cm and 1.0 cm masses in right parotid gland with small hematoma patient will have follow-up with primary care physician after discharge. This has been stable on exam. (11) Acetabulum fracture, right: Onset Date: 04/13/20 Qualifiers: Encounter type: initial encounter Sublocation of acetabulum: other portion of acetabulum Fracture type: cl
--- NOTE | 2020-04-24 13:18 | PCPTNOTE ---
Attempted therapy at 8:05am, Pt was getting ready to work with OT. Will attempt again later.
== END 2020-04-24 13:00 | DRG 720 ==
LOC: ANHIMU 04-18 11:08 → ANH3MED 04-19 21:14 → ANHIMU 04-26 09:57
PROVIDERS: Family Medicine; Internal Medicine; Nurse Practitioner; Physician Assistant; Admitting Provider Family Medicine; PCP Family Medicine; Visit Provider Internal Medicine
DX: A41.9 Sepsis, unspecified organism (principal); J18.9 Pneumonia, unspecified organism; I26.99 Other pulmonary embolism without acute cor pulmonale; J44.0 Chronic obstructive pulmonary disease with (acute) lower respiratory infection; Z20.828 Contact with and (suspected) exposure to other viral communicable diseases; F10.20 Alcohol dependence, uncomplicated; F17.210 Nicotine dependence, cigarettes, uncomplicated; F15.90 Other stimulant use, unspecified, uncomplicated; F41.1 Generalized anxiety disorder; K21.9 Gastro-esophageal reflux disease without esophagitis; I71.4 Abdominal aortic aneurysm, without rupture; R94.6 Abnormal results of thyroid function studies; K74.60 Unspecified cirrhosis of liver; E03.9 Hypothyroidism, unspecified; E87.6 Hypokalemia; E83.42 Hypomagnesemia; R74.0 Nonspecific elevation of levels of transaminase and lactic acid dehydrogenase [LDH]; K11.8 Other diseases of salivary glands; Z99.81 Dependence on supplemental oxygen; M81.0 Age-related osteoporosis without current pathological fracture; M15.9 Polyosteoarthritis, unspecified; W19.XXXD Unspecified fall, subsequent encounter; Z90.710 Acquired absence of both cervix and uterus; S32.491D Other specified fracture of right acetabulum, subsequent encounter for fracture with routine healing
CPT/HCPCS: 36415; 36600; 71046; 74019; 76705; 80048; 80053; 80074; 80076; 82140; 82728; 82805; 83605; 83690; 83735; 84443; 85014; 85018; 85025; 85027; 85055; 85610; 87040; 87070; 87205; 87635; 93306; 93970; 94002; 94003; 94640; 97110; 97161; 97165; 97530; 97535; A9270; C9803; J1630; J1650; J1956; J2060; J2405; J3475; J3480; J7120; U0003

== ENCOUNTER 2020-05-02 11:08 | Outpatient (NON) | payer MEDICAID, SELFPAY ==
[2020-05-02 11:28] LABS: Basophils Absolute Auto 0.06 K/mm3 (0.00-0.10); Basophils Percent Auto 0.7 % (0.0-1.0); Eosinophils Absolute Auto 0.14 K/mm3 (0.02-0.50); Eosinophils Percent Auto 1.7 % (1.0-6.0); Hematocrit 36.2 % (35.0-49.0); Hemoglobin 11.8 g/dL (12.0-15.0); Immature Granulocyte Absolute 0.04 K/mm3 (0.00-0.00); Immature Granulocyte Percent A 0.5 % (0.0-0.0); Immature Platelet Fraction Pct 1.4 % (1.0-7.0); Lymphocytes Absolute Auto 2.07 K/mm3 (1.10-4.50); Lymphocytes Percent Auto 25.2 % (18.0-42.0); Mean Corpuscular HGB Conc 32.6 g/dL (32.0-36.0); Mean Corpuscular Hemoglobin 36.8 pg (27.0-31.0); Mean Corpuscular Volume 112.8 fL (78.0-102.0); Mean Platelet Volume 9.5 fl (9.2-11.8); Monocytes Absolute Auto 0.62 K/mm3 (0.10-0.90); Monocytes Percent Auto 7.6 % (2.0-11.0); Neutrophils Absolute Auto 5.3 K/mm3 (1.7-7.2); Neutrophils Percent Auto 64.3 % (50.0-70.0); Platelet Count Result 710 K/mm3 (150-420); Red Blood Count 3.21 M/mm3 (4.20-5.40); Red Cell Distribution Width 13.7 % (11.6-14.4); White Blood Count 8.2 K/mm3 (4.8-10.8)
[2020-05-02 11:40] LABS: INR 1.5; Prothrombin Time 14.9 Seconds (9.64-11.0)
[2020-05-02 12:15] LABS: Alanine Aminotransferase 27 U/L (14-59); Albumin Level 2.9 g/dL (3.4-5.0); Alkaline Phosphatase 245 U/L (46-116); Anion Gap 8 mmol/L (8-16); Aspartate Amino Transferase 28 U/L (15-37); Bilirubin,Total 0.2 mg/dL (0.00-1.00); Blood Urea Nitrogen 5 mg/dL (7-18); Calcium 8.7 mg/dL (8.5-10.1); Carbon Dioxide 26 mmol/L (21-32); Chloride 105 mmol/L (98-108); Estimated Glomerular Filt Rate > 60; Glucose 96 mg/dL (70-99); Magnesium 1.7 mg/dL (1.8-2.4); Osmolality Calculated 285 mOsm/kg (285-295); Potassium 4.4 mmol/L (3.5-5.1); Sodium 139 mmol/L (136-145); Total Protein 7.1 g/dL (6.4-8.2)
== END 2020-05-02 11:09 ==
PROVIDERS: Visit Provider Nurse Practitioner Family
DX: I26.99 Other pulmonary embolism without acute cor pulmonale (principal); E83.42 Hypomagnesemia; E87.6 Hypokalemia
CPT/HCPCS: 36415; 80053; 83735; 85025; 85055; 85610

== ENCOUNTER 2020-05-19 10:52 | Outpatient (CLI) | payer MEDICAID, SELFPAY ==
[2020-05-19 11:29] LABS: Prothrombin Time 95.4 Seconds (9.64-11.0)
== END 2020-05-19 10:53 | disposition home or self-care (01) ==
LOC: CHSLAB 10:53
PROVIDERS: PCP Nurse Practitioner Family; Visit Provider Nurse Practitioner Family
DX: I26.99 Other pulmonary embolism without acute cor pulmonale (principal)
CPT/HCPCS: 36415; 85610

== ENCOUNTER 2020-05-22 11:05 | Outpatient (CLI) | payer MEDICAID, SELFPAY ==
[2020-05-22 12:11] LABS: INR 4.1; Prothrombin Time 40.5 Seconds (9.64-11.0)
== END 2020-05-22 11:06 | disposition home or self-care (01) ==
LOC: CHSLAB 11:07
PROVIDERS: PCP Nurse Practitioner Family; Visit Provider Nurse Practitioner Family
DX: I26.99 Other pulmonary embolism without acute cor pulmonale (principal)
CPT/HCPCS: 36415; 85610

== ENCOUNTER 2020-05-24 10:45 | Outpatient (RCR) | payer BC, MEDICAID, SELFPAY ==
--- NOTE | 2020-05-25 06:49 | PTOPEVAL ---
Thank you for referring Clara Joseph to [facility].? The patient is scheduled to be seen for therapy? __3__x/week for 12 visits. Please review, sign, date and return this plan of care LESLEE. I agree with and certify that the following plan of care is medically necessary. Referring Physician Date Admitting Provider: Attending Provider: Padmini Rasheed NP Referring Provider: *PT Outpatient Evaluation Start: 05/24/20 11:01 Freq: Status: Active Protocol: Document 05/24/20 11:01 AKHIL (Rec: 05/24/20 11:43 [id number]) Therapy Assessment Status Assessment Status Assessment Status Evaluation Outpatient Past Medical History Neurological History Hx Neurological Disorders No Significant History Cardiovascular History Hx Aneurysm Yes: abdominal aortic Respiratory History Hx Bronchitis Yes: Chronic Hx Chronic Obstructive Pulmonary Disease Yes (COPD) Hx Emphysema Yes Hx Pneumonia Yes Hx Pulmonary Embolism Yes Hx Other Respiratory Disorders Yes: home oxygen 3L Gastrointestinal History Hx Gastroesophageal Reflux Disease Yes Genitourinary History Hx Urinary Tract Infection Yes Musculoskeletal History Hx Arthritis Yes Hx Back Pain Yes Hx Fractures Yes: Right hip, left elbow, right ankle, right shoulder Hx Joint Replacement Yes: Right hip, Hx Osteoporosis Yes Hematological History Hx Hematological Disorders No Significant History Endocrine History Hx Endocrine Disorders No Significant History HEENT History Hx Tonsillectomy Yes Hx Sinus Problems Yes Hx Dental Problems Yes Integumentary History Hx Skin Disorders No Significant History Reproductive History Hx Section Yes: x1 Hx Hysterectomy Yes Hx Post Menopausal Yes Psychosocial History Hx Anxiety Yes Hx Depression Yes Pain History Has Past Pain Affected Your Daily Life Yes Anesthesia History Hx Anesthesia Reactions No Significant History Evaluation Information Problem Diagnosis dorsalgia, spondylosis without myelopathy Onset 04/24/20 Subjective Information Pt. reports that she fell at Query Text:As Reported By Patient/ home around 04/24/20 fx the Family right hip. She describes persistent pain at the proximal lateral right thigh. She reports that her pain is constent. She d
--- NOTE | 2020-06-06 15:05 | PCPTNOTE ---
06/06/20-pt did not show for her appointment this date scheduled for 1400. pt was called and vm was left asking her to call to reschedule-.
== END 2020-07-16 15:02 | disposition home or self-care (01) ==
LOC: CHSPT 10:45
PROVIDERS: PCP Nurse Practitioner Family; Visit Provider Nurse Practitioner Family
DX: M54.9 Dorsalgia, unspecified (principal); M47.812 Spondylosis without myelopathy or radiculopathy, cervical region
CPT/HCPCS: 97014; 97110; 97116; 97161; 97530; G0283

== ENCOUNTER 2020-06-27 14:10 | Outpatient (CLI) | payer OTHER, BC, SELFPAY ==
[2020-06-27 14:26] LABS: Basophils Absolute Auto 0.06 K/mm3 (0.00-0.10); Basophils Percent Auto 0.5 % (0.0-1.0); Eosinophils Absolute Auto 0.03 K/mm3 (0.02-0.50); Eosinophils Percent Auto 0.3 % (1.0-6.0); Hematocrit 42.6 % (35.0-49.0); Hemoglobin 14.1 g/dL (12.0-15.0); Immature Granulocyte Absolute 0.05 K/mm3 (0.00-0.00); Immature Granulocyte Percent A 0.4 % (0.0-0.0); Lymphocytes Absolute Auto 2.94 K/mm3 (1.10-4.50); Lymphocytes Percent Auto 25.3 % (18.0-42.0); Mean Corpuscular HGB Conc 33.1 g/dL (32.0-36.0); Mean Corpuscular Hemoglobin 36.9 pg (27.0-31.0); Mean Corpuscular Volume 111.5 fL (78.0-102.0); Mean Platelet Volume 9.2 fl (9.2-11.8); Monocytes Absolute Auto 0.84 K/mm3 (0.10-0.90); Monocytes Percent Auto 7.2 % (2.0-11.0); Neutrophils Absolute Auto 7.7 K/mm3 (1.7-7.2); Neutrophils Percent Auto 66.3 % (50.0-70.0); Platelet Count Result 378 K/mm3 (150-420); Red Blood Count 3.82 M/mm3 (4.20-5.40); Red Cell Distribution Width 14.9 % (11.6-14.4); White Blood Count 11.6 K/mm3 (4.8-10.8)
[2020-06-27 14:39] LABS: Prothrombin Time 10.8 Seconds (9.64-11.0)
[2020-06-27 15:14] LABS: Anion Gap 15 mmol/L (8-16); Blood Urea Nitrogen 5 mg/dL (7-18); Calcium 9.2 mg/dL (8.5-10.1); Carbon Dioxide 20 mmol/L (21-32); Chloride 102 mmol/L (98-108); Estimated Glomerular Filt Rate > 60; Glucose 83 mg/dL (70-99); Osmolality Calculated 280 mOsm/kg (285-295); Potassium 4.4 mmol/L (3.5-5.1); Sodium 137 mmol/L (136-145)
== END 2020-06-27 14:11 | disposition home or self-care (01) ==
PROVIDERS: Family Medicine; PCP Nurse Practitioner Family; Visit Provider Nurse Practitioner Family
DX: J44.9 Chronic obstructive pulmonary disease, unspecified (principal); E83.42 Hypomagnesemia; E87.6 Hypokalemia; I26.99 Other pulmonary embolism without acute cor pulmonale
CPT/HCPCS: 36415; 80048; 85025; 85610

== ENCOUNTER 2020-11-16 19:30 | Emergency (ER) | payer BC, SELFPAY ==
--- NOTE | ~2020-11-16 | XR_ITS ---
XR hip RT 2V w AP pelvis DATE: 11/16/2020 20:31 INDICATION: Right hip pain following a fall TECHNIQUE: AP and lateral views of right hip COMPARISON: 11/28/2015 right hip 11/16/2020 right femur FINDINGS: Diffuse osteopenia. The pubic symphysis and sacroiliac joints are intact. Compression screw and intramedullary nicol of the right femur for old intertrochanteric and distal femo ral shaft fractures. No recent fracture or dislocation of the right hip. IMPRESSION: No recent fracture or dislocation of right hip Diffuse osteopenia Reviewed, dictated and finalized at location A.
--- NOTE | ~2020-11-16 | XR_ITS ---
XR femur RT min 2V DATE: 11/16/2020 20:31 INDICATION: Right hip pain following a fall TECHNIQUE: AP and lateral views COMPARISON: 11/28/2015 right hip 02/19/2016 pelvis 04/14/2020 CT abdomen pelvis FINDINGS: A compression and screw and intramedullary nicol are again noted in the right femur present o n 02/19/2016. There are healed fractures of the intertrochanteric area and distal femoral shaft. No recent fracture or dislocation of the femur is evident. No acute periosteal reaction or bone destr uction is detected. Diffuse osteopenia. IMPRESSION: Old internally fixated fractures of the right intertrochanteric area and distal femoral s haft Osteopenia No recent fracture or dislocation is detected Reviewed, dictated and finalized at location A. IMPRESSION: Old internally fixated fractures of the right intertrochanteric are a and distal femoral shaft Osteopenia No recent fracture or dislocation is detected
[2020-11-16 19:35] VITALS: BP 117/88; PULSE 93; RESP 20; TEMP 36.2; O2SAT 98
--- NOTE | 2020-11-16 19:35 | ED.FALL ---
HPI - Fall General Chief Complaint: Extremity Injury, Lower Stated Complaint: Ambulance Time Seen by Provider: 11/16/20 19:34 Source: patient, EMS and RN notes reviewed Mode of arrival: EMS Limitations: no limitations History of Present Illness HPI Narrative: Family states she fell Thursday or Thursday now 3 or 4 days ago. She drinks daily and states that she has been inebriated ever since. She has been hopping from 1 see to the other. Not able to bear weight on her right leg. complaint: fall Onset (ago): day(s) (3-4) Fall from: standing Fall witnessed: yes, by family Place fall occurred: home Loss of consciousness: none Location of injury - extremities: Right: thigh (HIP) Severity: severe Quality: sharp and stabbing Associated symptoms (after fall): denies Related Data Home Medications Medication Instructions Recorded Confirmed gabapentin 300 mg capsule 300 mg PO DAILY 07/05/19 11/16/20 budesonide-formoterol [Symbicort] 2 puff INHALATION Q12H PRN 04/16/20 11/16/20 Allergies Allergy/AdvReac Type Severity Reaction Status Date / Time chlordiazepoxide Allergy elevated Verified 09/19/20 08:03 [From Librium] liver enzymes Review of Systems Review of Systems: All systems reviewed & are unremarkable except as noted in HPI and below PMFSH Past Medical History Medical History (Updated 11/16/20 @ 21:02 by Feliberto Juares MD) AAA (abdominal aortic aneurysm) without rupture 3.5 cm fusiform abdominal aortic aneurysm Acute bilateral lower abdominal pain Acute upper back pain Age related osteoporosis Alcohol dependence Black stool Cirrhosis of liver Constipation COPD (chronic obstructive pulmonary disease) DVT prophylaxis DASHA (generalized anxiety disorder) GERD (gastroesophageal reflux disease) History of fracture of right ankle History of humerus fracture left left Hx of pneumothorax Hypothyroidism determined by thyroid function test Moderate major depression, single episode Nausea & vomiting Nicotine dependence with current use Pneumonia Polyosteoarthritis Rib fracture Sepsis Spontaneous pneumothorax Transaminitis UTI (urinary tract infection) Surgical History Surgical History History of appendectomy History of section, classical x1 History of esophagogastroduodenoscopy (EGD) History of hysterectomy S/P hardware removal right hip knee a which was removed later. Intramedullary screw gamma nail Family History Family History Mother Diabetes mellitus Dementia Heart disease Chronic kidney disease Breast cancer Family history of malignant neoplasm of breast in first degree relative Hypertension Father FH: brain aneurysm Cancer Hypertension Social History Social History Social History: the patient is disabled Now but she used to work until she fractured her hip many years ago. She worked for the [employer]. She smokes a pack To 2 packs ofcigarettes a day since she was a teenager. the patient drinks approximately half a pt of whiskey each day along with 6-8 beers. The patient mixes or whiskey with the beer. She has 4 children. And her sister Melissa Kong is her poa . the patient wishes to be a full code. She minutes to occasionally using methamphetamines and marijuana when she has company in the bring it over with them he be once a month. But she does not use it daily. She is . Smoking packs per day: 1 Smoking cigarettes per day: 20.0 Years smoked: 53 Smoking pack-years: 53.00 Smoking status: Current every day smoker Tobacco type: cigarettes Second hand tobacco smoke exposure: Yes Alcohol intake: current Drinks per week: 42 Substance use: current Substance use type: marijuana and methamphetamine Additional living arrangements comments: [facility] [place] provid
[2020-11-16 19:56] LABS: Basophils Absolute Auto 0.06 K/mm3 (0.00-0.10); Basophils Percent Auto 0.7 % (0.0-1.0); Eosinophils Absolute Auto 0.03 K/mm3 (0.02-0.50); Eosinophils Percent Auto 0.4 % (1.0-6.0); Hematocrit 43.9 % (35.0-49.0); Hemoglobin 15.4 g/dL (12.0-15.0); Immature Granulocyte Absolute 0.02 K/mm3 (0.00-0.00); Immature Granulocyte Percent A 0.2 % (0.0-0.0); Lymphocytes Absolute Auto 4.35 K/mm3 (1.10-4.50); Mean Corpuscular HGB Conc 35.1 g/dL (32.0-36.0); Mean Corpuscular Hemoglobin 36.9 pg (27.0-31.0); Mean Corpuscular Volume 105.3 fL (78.0-102.0); Mean Platelet Volume 8.1 fl (9.2-11.8); Monocytes Absolute Auto 0.41 K/mm3 (0.10-0.90); Monocytes Percent Auto 4.8 % (2.0-11.0); Neutrophils Absolute Auto 3.7 K/mm3 (1.7-7.2); Neutrophils Percent Auto 42.9 % (50.0-70.0); Platelet Count Result 390 K/mm3 (150-420); Red Blood Count 4.17 M/mm3 (4.20-5.40); Red Cell Distribution Width 14.6 % (11.6-14.4); White Blood Count 8.5 K/mm3 (4.8-10.8)
[2020-11-16 20:06] LABS: INR 0.9; Prothrombin Time 10.1 Seconds (9.50-12.10)
[2020-11-16 20:08] LABS: Partial Thromboplastin Time 26.6 SEC (23.90-30.70)
[2020-11-16 20:12] LABS: Alanine Aminotransferase 30 U/L (14-59); Albumin Level 3.2 g/dL (3.4-5.0); Alkaline Phosphatase 167 U/L (46-116); Anion Gap 13 mmol/L (8-16); Aspartate Amino Transferase 38 U/L (15-37); Bilirubin,Total 0.2 mg/dL (0.00-1.00); Blood Urea Nitrogen 4 mg/dL (7-18); Calcium 8.1 mg/dL (8.5-10.1); Carbon Dioxide 25 mmol/L (21-32); Chloride 104 mmol/L (98-108); Estimated CRCL calculation 66 ml/min; Estimated Glomerular Filt Rate > 60; Glucose 92 mg/dL (70-99); Osmolality Calculated 290 mOsm/kg (285-295); Potassium 3.5 mmol/L (3.5-5.1); Sodium 142 mmol/L (136-145); Total Protein 7.7 g/dL (6.4-8.2)
[2020-11-16 20:15] LABS: Ethanol 381 mg/dL (0-6)
[2020-11-16 20:52] LABS: Amphetamine Screen Urine Negative (Negative); Barbiturate Screen Urine Negative (Negative); Benzodiazepines Screen Urine Negative (Negative); Cannabinoid Screen Urine Positive (Negative); Cocaine Screen Urine Negative (Negative); Methadone Screen Urine Negative (Negative); Opiate Screen Urine Negative (Negative); Phencyclidine Screen Urine Negative (Negative)
[2020-11-16] MEDS: KETOROLAC 30 MG/ML VIAL (*BKC) IV PUSH (21:01)
[2020-11-16 21:30] VITALS: BP 122/74; PULSE 80; RESP 18; TEMP 36.6; O2SAT 98
== END 2020-11-16 21:35 | disposition home or self-care (01) ==
PROVIDERS: Emergency Provider Emergency Medicine; PCP Nurse Practitioner Family
DX: S70.01XA Contusion of right hip, initial encounter (principal); S80.01XA Contusion of right knee, initial encounter; F10.20 Alcohol dependence, uncomplicated; W19.XXXA Unspecified fall, initial encounter
CPT/HCPCS: 36415; 73502; 73552; 80053; 80307; 85025; 85610; 85730; 96374; 99283; 99284; J1885

== ENCOUNTER 2021-01-16 11:16 | Outpatient (NON) | payer BC, SELFPAY ==
[2021-01-16 11:31] LABS: Basophils Absolute Auto 0.07 K/mm3 (0.00-0.10); Basophils Percent Auto 0.9 % (0.0-1.0); Eosinophils Absolute Auto 0.02 K/mm3 (0.02-0.50); Eosinophils Percent Auto 0.3 % (1.0-6.0); Hematocrit 38.8 % (35.0-49.0); Hemoglobin 13.9 g/dL (12.0-15.0); Immature Granulocyte Absolute 0.04 K/mm3 (0.00-0.00); Immature Granulocyte Percent A 0.5 % (0.0-0.0); Lymphocytes Absolute Auto 2.36 K/mm3 (1.10-4.50); Mean Corpuscular HGB Conc 35.8 g/dL (32.0-36.0); Mean Corpuscular Hemoglobin 38.2 pg (27.0-31.0); Mean Corpuscular Volume 106.6 fL (78.0-102.0); Mean Platelet Volume 10.6 fl (9.2-11.8); Monocytes Absolute Auto 0.78 K/mm3 (0.10-0.90); Monocytes Percent Auto 9.9 % (2.0-11.0); Neutrophils Absolute Auto 4.6 K/mm3 (1.7-7.2); Neutrophils Percent Auto 58.4 % (50.0-70.0); Platelet Count Result 150 K/mm3 (150-420); Red Blood Count 3.64 M/mm3 (4.20-5.40); Red Cell Distribution Width 14.5 % (11.6-14.4); White Blood Count 7.9 K/mm3 (4.8-10.8)
[2021-01-16 12:32] LABS: Alanine Aminotransferase 138 U/L (14-59); Albumin Level 2.7 g/dL (3.4-5.0); Alkaline Phosphatase 602 U/L (46-116); Anion Gap 12 mmol/L (8-16); Aspartate Amino Transferase 120 U/L (15-37); Bilirubin,Total 1.5 mg/dL (0.00-1.00); Blood Urea Nitrogen 5 mg/dL (7-18); Calcium 8.3 mg/dL (8.5-10.1); Carbon Dioxide 27 mmol/L (21-32); Chloride 98 mmol/L (98-108); Cholesterol 167 mg/dL (0-200); Estimated Glomerular Filt Rate > 60; Glucose 90 mg/dL (70-99); HDL Direct 24 mg/dL (40-60); LDL Cholesterol Calculated 107 mg/dL (<130); Osmolality Calculated 281 mOsm/kg (285-295); Potassium 3.1 mmol/L (3.5-5.1); Sodium 137 mmol/L (136-145); Thyroid Stimulating Hormone 4.27 uIU/mL (0.36-3.74); Total Protein 6.8 g/dL (6.4-8.2); Triglycerides 179 mg/dL (0-150); Vitamin B12 1563 pg/mL (193-986)
[2021-01-16 12:33] LABS: Magnesium 0.8 mg/dL (1.8-2.4)
== END 2021-01-16 11:17 | disposition home or self-care (01) ==
PROVIDERS: Visit Provider Nurse Practitioner Family
DX: E83.42 Hypomagnesemia (principal); R11.2 Nausea with vomiting, unspecified; R19.7 Diarrhea, unspecified; I71.4 Abdominal aortic aneurysm, without rupture; F10.220 Alcohol dependence with intoxication, uncomplicated; E03.9 Hypothyroidism, unspecified; R94.6 Abnormal results of thyroid function studies; N39.0 Urinary tract infection, site not specified
CPT/HCPCS: 36415; 80053; 80061; 82607; 82746; 83735; 84443; 85025; 87086; 87088

== ENCOUNTER 2021-01-16 13:36 | Emergency (ER) | payer BC, SELFPAY ==
[2021-01-16 14:08] VITALS: BP 139/69; PULSE 92; RESP 16; TEMP 36.8; O2SAT 99
--- NOTE | 2021-01-16 15:06 | ED.GENADULT ---
HPI - General Adult General Chief complaint: Recheck/Abnormal Lab/Rx Stated complaint: Doctor referred Source: patient Mode of arrival: ambulatory Limitations: no limitations History of Present Illness HPI narrative: Clara is a 65F with a complex PMH including Hx of PE, acetabulum fracture, diverticulosis, depression, alcohol dependence, cirrhosis, OA, tobacco abuse, marijuana use, methamphetamine use, GERD, DASHA and hypothyroidism and a AAA that was referred to the ED by her PCP for low potassium and magnesium. She has been feeling ill for a couple weeks. She had 2-3 weeks of diarrhea and occasional vomiting as well as generally feeling fatigued. She tried to treat this with pepto bismol but now has had constipation for a week with even more weakness. She told her PCP she has not been taking any meds for a month. Related Data Home Medications Medication Instructions Recorded Confirmed budesonide-formoterol [Symbicort] 2 puff INHALATION Q12H PRN 04/16/20 01/16/21 Allergies Allergy/AdvReac Type Severity Reaction Status Date / Time chlordiazepoxide Allergy elevated Verified 01/16/21 08:10 [From Librium] liver enzymes Review of Systems Constitutional: Constitutional: Denies chills, Reports fatigue, Denies fever(s) and Reports weakness Eyes: Eyes: Reports no additional eye complaints ENT: Reports system reviewed and no additional complaints, except as documented Cardiovascular: Cardiovascular: Reports no additional cardiovascular complaints Respiratory: Respiratory: Reports no additional respiratory complaints Gastrointestinal: Gastrointestinal: Reports as per HPI Genitourinary: Genitourinary: Reports no additional female genitourinary complaints Musculoskeletal: Musculoskeletal: Reports no additional musculoskeletal complaints Integumentary/Breasts: Skin/Breast: Reports system reviewed and no additional complaints, except as docu Neurologic: Comments: lightheadedness Psychiatric: Psychiatric: Reports no additional psychiatric complaints Endocrine: Endocrine: Reports no additional endocrine complaints Hematologic/Lymphatic: Hematologic/Lymphatic: Reports no additional hematologic/lymphatic complaints Allergic/Immunologic: Allergic/Immunologic: Reports no additional allergic/immunologic complaints [facility] Past Medical History Medical History (Updated 01/16/21 @ 19:14 by Angel Gaming DO) AAA (abdominal aortic aneurysm) without rupture 3.5 cm fusiform abdominal aortic aneurysm Acute bilateral lower abdominal pain Acute upper back pain Age related osteoporosis Alcohol dependence Black stool Cirrhosis of liver Constipation COPD (chronic obstructive pulmonary disease) DVT prophylaxis DASHA (generalized anxiety disorder) GERD (gastroesophageal reflux disease) History of fracture of right ankle History of humerus fracture left left Hx of pneumothorax Hypothyroidism determined by thyroid function test Moderate major depression, single episode Nausea & vomiting Nicotine dependence with current use Pneumonia Polyosteoarthritis Rib fracture Sepsis Spontaneous pneumothorax Transaminitis UTI (urinary tract infection) Surgical History Surgical History History of appendectomy History of section, classical x1 History of esophagogastroduodenoscopy (EGD) History of hysterectomy S/P hardware removal right hip knee a which was removed later. Intramedullary screw gamma nail Family History Family History Mother Diabetes mellitus Dementia Heart disease Chronic kidney disease Breast cancer Family history of malignant neoplasm of breast in first degree relative Hypertension Father FH: brain aneurysm Cancer Hypertension Social History Social History Social History: the patient is disabled Now but she used to
[2021-01-16] MEDS: MAGNESIUM SULF 4 GM/WATER100ML 4 GM/100 ML BAG IVPB (15:28)
[2021-01-16] MEDS: THERAPEUTIC MULTIVITAMINS/MINERALS TAB (*BKC) 1 TABLET PO (15:29)
[2021-01-16] MEDS: FOLIC ACID 1 MG TABLET PO (15:29)
[2021-01-16] MEDS: THIAMINE HCL 100 MG TABLET PO (15:29)
[2021-01-16] MEDS: KCL 20 MEQ/SW 100 ML 100 ML 50 MEQ IVPB (16:00)
[2021-01-16] MEDS: SODIUM CHLORIDE 0.9% IV 1,000 ML 100 ML IV CONT (17:35)
[2021-01-16 18:35] LABS: Magnesium 2.8 mg/dL (1.8-2.4)
[2021-01-16 19:07] LABS: Potassium 3.9 mmol/L (3.5-5.1)
[2021-01-16 19:40] VITALS: BP 142/79; PULSE 84; RESP 20; TEMP 36.8; O2SAT 97
== END 2021-01-16 19:50 | disposition home or self-care (01) ==
PROVIDERS: Emergency Provider Family Medicine; PCP Nurse Practitioner Family
DX: E83.42 Hypomagnesemia (principal); E87.6 Hypokalemia
CPT/HCPCS: 36415; 83735; 84132; 96361; 96365; 96367; 99283; 99284; A9270; J3475; J3480; J7030

== ENCOUNTER 2021-01-20 20:30 | Observation (INO) | payer BC, SELFPAY ==
--- NOTE | ~2021-01-20 | XR_ITS ---
EXAMINATION: XR foot LT min 3V DATE: 01/20/2021 21:46 INDICATION: Left foot pain TECHNIQUE: Dorsoplantar, lateral, and 2 oblique views of the left foot were obtained. COMPARISON: None. FINDINGS: There is no fracture, dislocation, or subluxation. Mild osteoarthritis is noted at the firs t metatarsophalangeal joint. There is dorsal soft tissue swelling the foot overlying the metatarsals. Calcified atherosclerosis is noted. IMPRESSION: 1. Soft tissue swelling without acute osseous abnormality. Reviewed, dictated and finalized at location A.
--- NOTE | ~2021-01-20 | XR_ITS ---
EXAMINATION: XR foot RT min 3V DATE: 01/20/2021 21:47 INDICATION: Right foot pain TECHNIQUE: Dorsoplantar, lateral, and 2 oblique views of the right foot were obtained. COMPARISON: None. FINDINGS: There is mild osteoarthritis at the first metatarsophalangeal joint and in multiple interph alangeal joints. No fracture is identified. There is dorsal soft tissue swelling of the foot. Calcifi ed atherosclerosis is noted. IMPRESSION: 1. Soft tissue swelling without acute osseous abnormality. Reviewed, dictated and finalized at location A.
--- NOTE | ~2021-01-20 | CT_ITS ---
EXAMINATION: CTA chest PE protocol DATE: 01/21/2021 03:17 INDICATION: Shortness of breath, bilateral foot pain TECHNIQUE: Computed tomography angiography (CTA) of the chest was performed with 100 mL Omnipaque-350 intravenous contrast timed to evaluate the pulmonary arteries. Coronal maximum intensity projection 3D-reconstructions were created by the technologist. The dose-length product (DLP) was 249.31 mGy-cm. Automated exposure control and iterative reconstruction technique were employed. COMPARISON: 04/16/2020, 10/06/2019 FINDINGS: The pulmonary arteries are well-opacified. No pulmonary embolism is identified. There is m ild emphysema. There are changes of right partial pneumonectomy. A chronic 1.3 cm nodule of the right lower lobe is stable. There are minimal airspace opacities of the lower lobes. There is no pleural e ffusion or pneumothorax. There is enlargement of the main and central pulmonary arteries, consistent with pulmonary hypertension. The heart size is normal. Calcified coronary artery atherosclerosis is n oted. There is mild thoracic spondylosis. IMPRESSION: 1. No pulmonary embolism. 2. Mild atelectasis. Reviewed, dictated and finalized at location A.
--- NOTE | 2021-01-20 21:19 | ECG_ITS ---
Measurements Intervals [place] Rate: 85 P: 48 ME: 159 QRS: -3 QRSD: 84 T: 32 QT: 378 QTc: 451 Interpretive Statements SINUS RHYTHM INCOMPLETE RIGHT BUNDLE BRANCH BLOCK MINIMAL Q WAVES- INFERIOR LEADS BORDERLINE T WAVE ABNORMALITY- ANTERIOR LEADS BORDERLINE ECG Electronically Signed On 01-21-2021 7:21:06 CDT by Kevin Rubio D.O.
[2021-01-20 21:37] LABS: Basophils Absolute Auto 0.06 K/mm3 (0.00-0.10); Basophils Percent Auto 0.8 % (0.0-1.0); Eosinophils Absolute Auto 0.03 K/mm3 (0.02-0.50); Eosinophils Percent Auto 0.4 % (1.0-6.0); Hematocrit 34.4 % (35.0-49.0); Hemoglobin 12.3 g/dL (12.0-15.0); Immature Granulocyte Absolute 0.01 K/mm3 (0.00-0.00); Immature Granulocyte Percent A 0.1 % (0.0-0.0); Lymphocytes Absolute Auto 2.63 K/mm3 (1.10-4.50); Lymphocytes Percent Auto 34.4 % (18.0-42.0); Mean Corpuscular HGB Conc 35.8 g/dL (32.0-36.0); Mean Corpuscular Hemoglobin 38.1 pg (27.0-31.0); Mean Corpuscular Volume 106.5 fL (78.0-102.0); Mean Platelet Volume 10.1 fl (9.2-11.8); Monocytes Absolute Auto 0.62 K/mm3 (0.10-0.90); Monocytes Percent Auto 8.1 % (2.0-11.0); Neutrophils Absolute Auto 4.3 K/mm3 (1.7-7.2); Neutrophils Percent Auto 56.2 % (50.0-70.0); Platelet Count Result 250 K/mm3 (150-420); Red Blood Count 3.23 M/mm3 (4.20-5.40); Red Cell Distribution Width 14.3 % (11.6-14.4); White Blood Count 7.7 K/mm3 (4.8-10.8)
[2021-01-20 21:41] VITALS: BP 126/69; PULSE 98; RESP 20; TEMP 36.4; O2SAT 98
[2021-01-20 21:57] LABS: Alanine Aminotransferase 62 U/L (14-59); Albumin Level 2.7 g/dL (3.4-5.0); Alkaline Phosphatase 403 U/L (46-116); Anion Gap 12 mmol/L (8-16); Aspartate Amino Transferase 46 U/L (15-37); Bilirubin,Total 0.9 mg/dL (0.00-1.00); Blood Urea Nitrogen 2 mg/dL (7-18); Carbon Dioxide 23 mmol/L (21-32); Chloride 102 mmol/L (98-108); Estimated CRCL calculation 70 ml/min; Estimated Glomerular Filt Rate > 60; Glucose 109 mg/dL (70-99); NT Pro B Type Natriuretic Pept 508 pg/mL (0-125); Osmolality Calculated 281 mOsm/kg (285-295); Potassium 2.3 mmol/L (3.5-5.1); Sodium 137 mmol/L (136-145)
[2021-01-20 22:08] LABS: Magnesium 1.2 mg/dL (1.8-2.4)
[2021-01-20] MEDS: POTASSIUM BICARBONATE 25 MEQ TABEF 50 MEQ PO (22:13)
[2021-01-20] MEDS: MAGNESIUM SULF 4 GM/WATER100ML 4 GM/100 ML BAG IVPB (22:28)
[2021-01-20 22:45] VITALS: BP 112/74; PULSE 80; RESP 20; O2SAT 95
[2021-01-20 22:49] LABS: Phosphorus 3.3 mg/dL (2.6-4.7)
--- NOTE | 2021-01-20 22:52 | ED.LOWEXIN ---
HPI - Extremity Injury (Lower) General Chief Complaint: Unspecified Stated Complaint: both legs hurting Source: patient Mode of arrival: ambulatory Limitations: no limitations History of Present Illness HPI Narrative: Patient comes in with complaints of swelling in her ankles and ankle pain. Swelling in ankles has gone on for two days. No significant shortness of breath. She denies any known injury, but admits drinking alcohol in excess at times, making history is of questionable value, as she could have developed an injury while impaired. Mild ankle discomfort has also been associated with pain in tibias bilaterally, which has been ongoing for some time, and at times moderately severe, sharp pain. This has been ongoing. She has attributed her lower leg pain to scrapes and running into things. Duration is ongoing. No other associated signs / symptoms, or modifying factors. She denies NSAID use which could make her feet swell. Related Data Home Medications Medication Instructions Recorded Confirmed budesonide-formoterol [Symbicort] 2 puff INHALATION Q12H PRN 04/16/20 01/20/21 Allergies Allergy/AdvReac Type Severity Reaction Status Date / Time chlordiazepoxide Allergy elevated Verified 01/20/21 22:02 [From Librium] liver enzymes Review of Systems Constitutional: Constitutional: Reports no additional constitutional complaints Eyes: Eyes: Reports no additional eye complaints ENT: Reports system reviewed and no additional complaints, except as documented Cardiovascular: Cardiovascular: Reports no additional cardiovascular complaints Respiratory: Respiratory: Reports no additional respiratory complaints Gastrointestinal: Gastrointestinal: Reports no additional gastrointestinal complaints Genitourinary: Genitourinary: Reports no additional female genitourinary complaints Musculoskeletal: Comments: lower leg pain at times, denies lower leg edema Integumentary/Breasts: Skin/Breast: Reports system reviewed and no additional complaints, except as docu Neurologic: Reports system reviewed and no additional complaints, except as documented Psychiatric: Psychiatric: Reports no additional psychiatric complaints Endocrine: Endocrine: Reports no additional endocrine complaints Hematologic/Lymphatic: Hematologic/Lymphatic: Reports no additional hematologic/lymphatic complaints Allergic/Immunologic: Allergic/Immunologic: Reports no additional allergic/immunologic complaints [facility] Past Medical History Medical History (Updated 01/21/21 @ 02:47 by Feliberto Tilley MD) AAA (abdominal aortic aneurysm) without rupture 3.5 cm fusiform abdominal aortic aneurysm Acute bilateral lower abdominal pain Acute upper back pain Age related osteoporosis Alcohol dependence Black stool Cirrhosis of liver Constipation COPD (chronic obstructive pulmonary disease) DVT prophylaxis DASHA (generalized anxiety disorder) GERD (gastroesophageal reflux disease) History of fracture of right ankle History of humerus fracture left left Hx of pneumothorax Hypothyroidism determined by thyroid function test Moderate major depression, single episode Nausea & vomiting Nicotine dependence with current use Pneumonia Polyosteoarthritis Rib fracture Sepsis Spontaneous pneumothorax Transaminitis UTI (urinary tract infection) Surgical History Surgical History History of appendectomy History of section, classical x1 History of esophagogastroduodenoscopy (EGD) History of hysterectomy S/P hardware removal right hip knee a which was removed later. Intramedullary screw gamma nail Family History Family History Mother Diabetes mellitus Dementia Heart disease Chronic kidney disease Breast cancer Family history of malignant neoplasm of breast in first degree relative Hypertension Father FH: brain aneurysm Cancer Hy
[2021-01-20 22:59] LABS: Add Urine Microscopic? NO; Appearance Urine Clear (Clear); Bilirubin Urine Negative (Negative); Blood Urine Negative (Negative); Color Urine Yellow (Yellow); Glucose Urine UA Negative (Negative); Ketones Urine Negative (Negative); Leukocyte Esterase Ur Negative LEU/UL (Negative); Nitrate Urine Negative (Negative); Protein Urine Negative (Negative); Specific Grav Ur <= 1.005 (1.010-1.020); Urobilinogen Urine 0.2 mg/dL (0.2-1.0); pH Urine 6.5 (5.0-8.0)
--- NOTE | 2021-01-20 23:20 | ADMGEN ---
This patient, Clara Joseph, was admitted to 2nd Floor Room 209-1 for 23 hour observation. Patient oriented to hospital policies and general routines including ID bracelet, bed and alarms, visiting hours, pain management, procedures, bathroom and other care routines, personal items, smoking policy, room service/diet, and visiting hours. Information on how to activate the Rapid Response Team has been discussed. Patient are encouraged to report perceived risks to care and to ask questions if they do not understand what they are told or what they should do. Patient has belongings at bedside. Home medications put in med room in labeled patient cassette box.
[2021-01-20 23:29] VITALS: BMI 19.6
[2021-01-21] VITALS (8 sets, daily range): BP systolic 109–120; BP diastolic 65–87; PULSE 80–104; RESP 18–20; TEMP 36.1–36.8; O2SAT 96–100
[2021-01-21 02:25] LABS: D Dimer 1.52 mg/L (0.19-0.50)
[2021-01-21] MEDS: POTASSIUM BICARBONATE 25 MEQ TABEF 50 MEQ PO ×2 (02:26→05:34)
--- NOTE | 2021-01-21 02:29 | PC.NURSE ---
Lab called to report critical d-dimer value; Dr. colin notified of d-dimer results and new orders were received and noted.
[2021-01-21] MEDS: LORazepam (*CRX) 0.5 MG TABLET PO (02:56)
--- NOTE | 2021-01-21 03:04 | PC.NURSE ---
Patient left floor at 0300 accompanied by maintenance technician for CTA of chest.
[2021-01-21] MEDS: BUDESONIDE/FORMOTEROL (*SP) 160-4.5 MCG 6 GM INH 2 PUFF INHALATION (05:35)
[2021-01-21 08:03] LABS: Anion Gap 4 mmol/L (8-16); Blood Urea Nitrogen 3 mg/dL (7-18); Calcium 8.2 mg/dL (8.5-10.1); Carbon Dioxide 30 mmol/L (21-32); Chloride 107 mmol/L (98-108); Estimated CRCL calculation 71 ml/min; Estimated Glomerular Filt Rate > 60; Glucose 84 mg/dL (70-99); Magnesium 1.9 mg/dL (1.8-2.4); Osmolality Calculated 287 mOsm/kg (285-295); Sodium 141 mmol/L (136-145)
[2021-01-21] MEDS: ENOXAPARIN 40 MG/0.4 ML SYRINGE SUB-Q (09:02)
[2021-01-21] MEDS: NICOTINE (*PBKC) 21 MG PATCH 1 PATCH TRANSDERM (09:03)
[2021-01-21] MEDS: MAGNESIUM OXIDE 400 MG TABLET PO (09:03)
[2021-01-21] MEDS: PANTOPRAZOLE 40 MG TABLET PO (09:03)
--- NOTE | 2021-01-21 11:12 | PM.SD2 ---
Same Day Admit/Disch: HPI History of Present Illness Chief complaint: HYPOKALEMIA HYPOMAGNEMIA Narrative: Clara Joseph is a 65 year old female to our ED with swollen ankle and ankle pain. Patient has a past medical history of abdominal aorta aneurysm, acute bilateral lower abdominal pain, acute upper back pain, osteoporosis, alcohol dependency, black stool, cirrhosis of the liver, constipation, COPD, DVT prophylactic, general anxiety disorder, GERD, hypothyroidism, nausea vomiting, nicotine dependency, and history of urinary tract infection. Patient admits to use of alcohol and could have possibly injured herself. On admission patient's WBC 7.7, hemoglobin 12.3, hematocrit 34.4, platelet 250, D-dimer 1.52, sodium 137, potassium 2.3, BUN 2, creatinine 0.59, glucose 109, magnesium 1.2, AST 46, ALT 63, BUN 508, troponin 5.0 UA negative. Patient being admitted for electrolyte imbalance. Today is day of discharge patient electrolyte has been corrected and she agrees that she is ready for discharge. The patient denies SOB, CP, palpitation, extremity numbness, lightheadedness, dizziness, constipation, diarrhea, chills, or fever Disposition Home with self-care Time spent 60 minutes Observation [facility] Past Medical History Medical History (Updated 01/21/21 @ 14:42 by JUDI Ellington) AAA (abdominal aortic aneurysm) without rupture 3.5 cm fusiform abdominal aortic aneurysm Acute bilateral lower abdominal pain Acute upper back pain Age related osteoporosis Alcohol dependence Black stool Cirrhosis of liver Constipation COPD (chronic obstructive pulmonary disease) DVT prophylaxis DASHA (generalized anxiety disorder) GERD (gastroesophageal reflux disease) History of fracture of right ankle History of humerus fracture left left Hx of pneumothorax Hypothyroidism determined by thyroid function test Moderate major depression, single episode Nausea & vomiting Nicotine dependence with current use Pneumonia Polyosteoarthritis Rib fracture Sepsis Spontaneous pneumothorax Transaminitis UTI (urinary tract infection) Surgical History Surgical History History of appendectomy History of section, classical x1 History of esophagogastroduodenoscopy (EGD) History of hysterectomy S/P hardware removal right hip knee a which was removed later. Intramedullary screw gamma nail Family History Family History Mother Diabetes mellitus Dementia Heart disease Chronic kidney disease Breast cancer Family history of malignant neoplasm of breast in first degree relative Hypertension Father FH: brain aneurysm Cancer Hypertension Social History Social History Social History: the patient is disabled Now but she used to work until she fractured her hip many years ago. She worked for the [employer]. She smokes a pack To 2 packs ofcigarettes a day since she was a teenager. the patient drinks approximately half a pt of whiskey each day along with 6-8 beers. The patient mixes or whiskey with the beer. She has 4 children. And her sister Melissa Kong is her poa . the patient wishes to be a full code. She minutes to occasionally using methamphetamines and marijuana when she has company in the bring it over with them he be once a month. But she does not use it daily. She is . Smoking packs per day: 1 Smoking cigarettes per day: 20.0 Years smoked: 53 Smoking pack-years: 53.00 Smoking status: Heavy tobacco smoker Tobacco type: cigarettes Second hand tobacco smoke exposure: No Alcohol intake: current Drinks per week: 6 Substance use: never Substance use type: marijuana and methamphetamine Additional living arrangements comments: [facility] provides person for shopping, housework, ADLs. Person comes 1 time a week. Gender ident
--- NOTE | 2021-01-21 14:05 | PC.NURSE ---
Patient being discharged home. All discharge instructions and education reviewed with patient. Patient states understanding. Home medications returned to patient. IV sites removed, dressing applied. Patient denies any questions at discharge, patient accompanied to front door by this nurse. Patient transporting self via electric wheelchair.
--- NOTE | 2021-01-22 10:53 | PC.NURSE ---
Unable to contact for discharge call back.
== END 2021-01-21 14:05 | disposition home health service (06) ==
LOC: CHSED 20:33 → CHS2ND 01-21 02:47
PROVIDERS: Admitting Provider Emergency Medicine; Emergency Provider Emergency Medicine; PCP Nurse Practitioner Family; Visit Provider Emergency Medicine
DX: E87.6 Hypokalemia (principal); E83.42 Hypomagnesemia; I71.4 Abdominal aortic aneurysm, without rupture; K74.60 Unspecified cirrhosis of liver; M81.0 Age-related osteoporosis without current pathological fracture; J44.9 Chronic obstructive pulmonary disease, unspecified; K21.9 Gastro-esophageal reflux disease without esophagitis; E03.9 Hypothyroidism, unspecified; M13.0 Polyarthritis, unspecified; R79.89 Other specified abnormal findings of blood chemistry; F32.9 Major depressive disorder, single episode, unspecified; F10.20 Alcohol dependence, uncomplicated; F41.1 Generalized anxiety disorder; F17.210 Nicotine dependence, cigarettes, uncomplicated; Z80.3 Family history of malignant neoplasm of breast
CPT/HCPCS: 36415; 71275; 73630; 80048; 80053; 81003; 83735; 83880; 84100; 84484; 84550; 85025; 85380; 93005; 96365; 96372; 99285; A9270; G0378; G0379; J1650; J3475; Q9967

== ENCOUNTER 2021-01-29 15:11 | Outpatient (CLI) | payer BC, SELFPAY ==
[2021-01-29 15:39] LABS: Hematocrit 37.1 % (35.0-49.0); Hemoglobin 12.9 g/dL (12.0-15.0); Mean Corpuscular HGB Conc 34.8 g/dL (32.0-36.0); Mean Corpuscular Hemoglobin 38.3 pg (27.0-31.0); Mean Corpuscular Volume 110.1 fL (78.0-102.0); Mean Platelet Volume 9.5 fl (9.2-11.8); Platelet Count Result 384 K/mm3 (150-420); Red Blood Count 3.37 M/mm3 (4.20-5.40); Red Cell Distribution Width 14.4 % (11.6-14.4); White Blood Count 8.4 K/mm3 (4.8-10.8)
[2021-01-29 16:05] LABS: Anion Gap 11 mmol/L (8-16); Blood Urea Nitrogen 5 mg/dL (7-18); Carbon Dioxide 24 mmol/L (21-32); Chloride 105 mmol/L (98-108); Estimated Glomerular Filt Rate > 60; Glucose 74 mg/dL (70-99); Potassium 3.8 mmol/L (3.5-5.1); Sodium 140 mmol/L (136-145)
[2021-01-29 16:06] LABS: Alanine Aminotransferase 49 U/L (14-59); Albumin Level 2.8 g/dL (3.4-5.0); Alkaline Phosphatase 396 U/L (46-116); Aspartate Amino Transferase 78 U/L (15-37); Bilirubin,Total 0.5 mg/dL (0.00-1.00); Calcium 8.6 mg/dL (8.5-10.1); Osmolality Calculated 286 mOsm/kg (285-295); Total Protein 6.8 g/dL (6.4-8.2)
[2021-01-29 16:08] LABS: Magnesium 1.4 mg/dL (1.8-2.4); Thyroid Stimulating Hormone 10.24 uIU/mL (0.36-3.74)
[2021-02-01 11:22] LABS: Vitamin D 25 Hydroxy 11 ng/mL (30-100)
== END 2021-01-29 15:12 | disposition home or self-care (01) ==
LOC: CHSLAB 15:17
PROVIDERS: Nurse Practitioner; PCP Nurse Practitioner Family; Visit Provider Nurse Practitioner Family
DX: E87.6 Hypokalemia (principal); E83.42 Hypomagnesemia; E03.9 Hypothyroidism, unspecified; R94.6 Abnormal results of thyroid function studies; M81.0 Age-related osteoporosis without current pathological fracture
CPT/HCPCS: 36415; 80053; 82306; 83735; 84443; 85027

== ENCOUNTER 2021-02-21 08:22 | Outpatient (CLI) | payer BC, SELFPAY ==
--- NOTE | ~2021-02-21 | US_ITS ---
. EXAMINATION: US aorta DATE: 02/21/2021 09:12 CDT INDICATION: Abdominal aortic aneurysm TECHNIQUE: Grayscale, color Doppler, and pulsed Doppler images of the aorta and common iliac arteries were obtained. COMPARISON: CT pelvis dated 04/14/2020. FINDINGS: There is extensive atherosclerosis of the abdominal aorta. The proximal aorta measures 2.7 cm greates t sagittal dimension. The mid aorta measures 3 cm greatest sagittal dimension. The distal aorta measu res 4 cm greatest sagittal dimension. The right common internal iliac artery measures 1.3 cm. The lef t common iliac artery measures 1.4 cm. IMPRESSION: 1. Enlarging infrarenal abdominal aortic aneurysm measuring 4 cm greatest sagittal dimension. There i s extensive atherosclerosis of the abdominal aorta. Reviewed, dictated and finalized at location B. IMPRESSION: 1. Enlarging infrarenal abdominal aortic aneurysm measuring 4 cm greatest sagit camila dimension. There is extensive atherosclerosis of the abdominal aorta.
--- NOTE | ~2021-02-21 | DEXA_ITS ---
Bone Density Report Name: Clara Joseph Age: 65 Sex: Female Ethnicity: White Date of : 1955 Indication: osteopenia; prior fracture; asthma or emphysema; rheumatoid arthritis; Referring Provider: Padmini Rasheed Study: Bone densitometry was performed. Exam Date: February 21, 2021 Accession number: [id number] Bone Density: Region BMD T-score Z-score Classification AP Spine(L1-L4) 0.891 -1.4 0.3 Osteopenia Femoral Neck (Left) 0.540 -2.8 -1.3 Osteoporosis Total Hip (Left) 0.682 -2.1 -0.9 Osteopenia World Health Organization criteria for BMD impression classify patients as: Normal (T-score at or above -1.0), Osteopenia (T-score between -1.0 and -2.5), or Osteoporosis (T-score at or below -2.5). 10-year Fracture Risk: FRAX not reported because: Some T-score for Spine Total or Hip Total or Femoral Neck at or below -2.5 Prior hip or vertebral fracture Previous Exams: Region Exam Age BMD T-score BMD Change BMD Change Date g/cm2 vs Baseline vs Previous AP Spine (L1-L4) 02/21/2021 65 0.891 -1.4 -0.022 (-2.4%) -0.070 (-7.3%) 03/26/2018 62 0.962 -0.8 0.048 (5.3%)* 0.048 (5.3%)* 11/30/2015 60 0.914 -1.2 Total Hip(Left) 02/21/2021 65 0.682 -2.1 0.003 (0.4%)# 0.033 (5.1%)# 03/26/2018 62 0.648 -2.4 -0.031 (-4.5%) -0.031 (-4.5%) 11/30/2015 60 0.679 -2.2 *Denotes significance at 95% confidence level, LSC for AP Spine = 0.022 g/cm2, LSC for Total Hip = 0.027 g/cm2 # Denotes dissimilar scan types or analysis methods Clinical Information Provided by Patient: Have had a previous hip or vertebral fracture Has had a low trauma fracture Smokes Has rheumatoid arthritis Has 3 or more alcoholic drinks per day Has used the following medications: Vitamin D Has the following medical conditions: Asthma or Emphysema Patient maximum height was 66 No regular weight bearing exercise Drinks caffeinated beverages Onset of menses at age 14 Number of children 5 Impression: The patient has established osteoporosis, based on the Left Femoral Neck T-score and the existence of a prior fracture. The patient has risk factors, including: smoking, excessive alcohol use, previous fracture. No significant bone loss was observed. Discussion: HIGH RISK OF FRACTURE. BONE DENSITY IS UNDESIRABLY LOW AT ONE OR MORE SKELETAL SITES, CONSISTENT WITH POSTMENOPAUSAL OSTEOPOROSIS. This patient's lowest T-score, in a patient who has previously fractured, meets the World Health Organization's (WHO) criteria for severe osteoporosis. In unt
[2021-02-21 09:25] LABS: Alanine Aminotransferase 36 U/L (14-59); Alkaline Phosphatase 248 U/L (46-116); Anion Gap 10 mmol/L (8-16); Aspartate Amino Transferase 49 U/L (15-37); Bilirubin,Total 0.7 mg/dL (0.00-1.00); Blood Urea Nitrogen 4 mg/dL (7-18); Calcium 8.9 mg/dL (8.5-10.1); Carbon Dioxide 26 mmol/L (21-32); Chloride 106 mmol/L (98-108); Estimated Glomerular Filt Rate > 60; Glucose 93 mg/dL (70-99); Magnesium 1.7 mg/dL (1.8-2.4); Osmolality Calculated 290 mOsm/kg (285-295); Sodium 142 mmol/L (136-145); Thyroid Stimulating Hormone 2.07 uIU/mL (0.36-3.74); Total Protein 6.7 g/dL (6.4-8.2)
== END 2021-02-21 08:23 | disposition home or self-care (01) ==
LOC: CHSIMG 08:24
PROVIDERS: PCP Nurse Practitioner Family; Visit Provider Nurse Practitioner Family
DX: E83.42 Hypomagnesemia (principal); E03.9 Hypothyroidism, unspecified; R94.6 Abnormal results of thyroid function studies; E87.6 Hypokalemia; I71.4 Abdominal aortic aneurysm, without rupture; M81.0 Age-related osteoporosis without current pathological fracture
CPT/HCPCS: 36415; 76775; 77080; 80053; 83735; 84443

== ENCOUNTER 2021-11-08 13:28 | Outpatient (CLI) | payer MEDICARE, SELFPAY ==
[2021-11-08 13:48] LABS: Basophils Absolute Auto 0.04 K/mm3 (0.00-0.10); Basophils Percent Auto 0.5 % (0.0-1.0); Eosinophils Absolute Auto 0.06 K/mm3 (0.02-0.50); Eosinophils Percent Auto 0.8 % (1.0-6.0); Hematocrit 46.3 % (35.0-42.0); Hemoglobin 15.9 g/dL (11.7-13.8); Immature Granulocyte Absolute 0.02 K/mm3 (0.00-0.00); Immature Granulocyte Percent A 0.3 % (0.0-0.0); Lymphocytes Absolute Auto 2.42 K/mm3 (1.10-4.50); Lymphocytes Percent Auto 31.7 % (18.0-42.0); Mean Corpuscular HGB Conc 34.3 g/dL (32.0-36.0); Mean Corpuscular Hemoglobin 34.6 pg (27.0-31.0); Mean Corpuscular Volume 100.9 fL (78.0-102.0); Mean Platelet Volume 8.8 fl (9.2-11.8); Monocytes Absolute Auto 0.62 K/mm3 (0.10-0.90); Monocytes Percent Auto 8.1 % (2.0-11.0); Neutrophils Absolute Auto 4.5 K/mm3 (1.7-7.2); Neutrophils Percent Auto 58.6 % (50.0-70.0); Platelet Count Result 318 K/mm3 (150-420); Red Blood Count 4.59 M/mm3 (4.20-5.40); Red Cell Distribution Width 13.1 % (11.6-14.4); White Blood Count 7.6 K/mm3 (4.8-10.8)
[2021-11-08 14:29] LABS: Alanine Aminotransferase 65 U/L (14-59); Albumin Level 3.7 g/dL (3.4-5.0); Alkaline Phosphatase 187 U/L (46-116); Anion Gap 12 mmol/L (8-16); Aspartate Amino Transferase 44 U/L (15-37); Bilirubin,Total 0.3 mg/dL (0.00-1.00); Blood Urea Nitrogen 3 mg/dL (7-18); Calcium 9.1 mg/dL (8.5-10.1); Carbon Dioxide 25 mmol/L (21-32); Chloride 101 mmol/L (98-108); Estimated Glomerular Filt Rate > 60; Magnesium 1.3 mg/dL (1.8-2.4); Potassium 3.6 mmol/L (3.5-5.1); Sodium 138 mmol/L (136-145); Thyroid Stimulating Hormone 1.97 uIU/mL (0.36-3.74); Total Protein 7.5 g/dL (6.4-8.2)
[2021-11-08 14:37] LABS: Glucose 93 mg/dL (70-99); Osmolality Calculated 282 mOsm/kg (285-295)
== END 2021-11-08 13:29 | disposition home or self-care (01) ==
LOC: CHSLAB 13:32
PROVIDERS: PCP Nurse Practitioner Family; Visit Provider Nurse Practitioner Family
DX: E83.42 Hypomagnesemia (principal); E87.6 Hypokalemia; E03.9 Hypothyroidism, unspecified; R94.6 Abnormal results of thyroid function studies
CPT/HCPCS: 36415; 80053; 83735; 84443; 85025

== ENCOUNTER 2022-09-17 14:50 | Outpatient (CLI) | payer MEDICARE, SELFPAY ==
--- NOTE | ~2022-09-17 | XR_ITS ---
EXAMINATION: XR_CERV2-3V_CR DATE: 09/17/2022 15:15 INDICATION: Neck pain. TECHNIQUE: 3 views of cervical spine were obtained. COMPARISON: Cervical spine radiographs 07/05/2019 FINDINGS: There is 8 degrees dextrocurvature of cervicothoracic spine. There is 2 mm anterolisthesis of C4 on C5. Vertebral body heights are normal. There is moderately decreased disc height at C5-C6 an d C6-C7. There is multilevel facet joint osteoarthritis, severe on the right at C4-C5 and C5-C6 and o n the left at C7-T1. There is mild central canal stenosis at C4-C5, C5-C6 and C6-C7. No prevertebral soft tissue swelling. IMPRESSION: 1. Moderate cervical spondylosis. Reviewed, dictated and finalized at location A. TRIC METER INSPECTOR
--- NOTE | ~2022-09-17 | XR_ITS ---
EXAMINATION: XR chest 2V DATE: 09/17/2022 15:16 INDICATION: Productive cough. Generalized chest pain. Shortness of breath. TECHNIQUE: Frontal and lateral views of the chest were obtained. COMPARISON: Chest 2 views 04/22/2020, chest CT 01/21/2021 FINDINGS: There is a staple line in right lung apex. There are lucencies in the lungs, consistent wit h emphysema. There is chronic mild scarring in the lower lung zones. No pleural effusion or pneumotho rax. The heart size is normal. IMPRESSION: 1. Emphysema and mild chronic lung disease. Reviewed, dictated and finalized at location A. BLENDER
== END 2022-09-17 14:51 | disposition home or self-care (01) ==
LOC: CHSIMG 14:53
PROVIDERS: PCP Nurse Practitioner Family; Visit Provider Nurse Practitioner Family
DX: J44.1 Chronic obstructive pulmonary disease with (acute) exacerbation (principal); M54.2 Cervicalgia; J98.4 Other disorders of lung; M43.02 Spondylolysis, cervical region
CPT/HCPCS: 71046; 72040

== ENCOUNTER 2022-10-28 11:56 | Outpatient (CLI) | payer MEDICARE, SELFPAY ==
--- NOTE | ~2022-10-28 | CT_ITS ---
EXAMINATION: CT lung screening DATE: 10/28/2022 12:12 INDICATION: Lung cancer screening. Lung term history of smoking. TECHNIQUE: Computed tomography (CT) of the chest was performed without intravenous contrast. The dose -length product was 71.74 mGy-cm. Automated exposure control and iterative reconstruction technique w ere employed. COMPARISON: CT dated 10/28/2012 FINDINGS: There is atherosclerosis of the aorta. There is atherosclerosis of the coronary arteries. H eart size normal. No significant pleural or pericardial effusion. No thoracic lymphadenopathy. There is emphysema. There is upper lobe scarring bilaterally. There are right lower lobe nodules measuring 1.2 cm and 9 mm respectively, unchanged from prior examinations. There is chronic lower lobe atelecta sis/scarring. There is a 6 mm nodule in the left lower lobe which has increased in size compared with prior study. Enlarging 4 mm fissural nodule on the left. New 3 mm right upper lobe nodule IMPRESSION: 1. New and enlarging bilateral pulmonary nodules. Lung Rads category 4A, suspicious. Recommend follow -up low dose CT chest in 3 months or PET/CT scan. Reviewed, dictated and finalized at location L. ERABILITY ASSESSMENT ANALYST IMPRESSION: 1. New and enlarging bilateral pulmonary nodules. Lung Rads category 4A, suspic ious. Recommend follow-up low dose CT chest in 3 months or PET/CT scan.
== END 2022-10-28 11:57 | disposition home or self-care (01) ==
LOC: CHSIMG 11:57
PROVIDERS: PCP Nurse Practitioner Family; Visit Provider Nurse Practitioner Family
DX: Z12.2 Encounter for screening for malignant neoplasm of respiratory organs (principal); J44.9 Chronic obstructive pulmonary disease, unspecified; Z87.891 Personal history of nicotine dependence; R91.8 Other nonspecific abnormal finding of lung field
CPT/HCPCS: 71271

== ENCOUNTER 2022-11-06 11:29 | Outpatient (CLI) | payer MEDICARE, MEDICAID, SELFPAY ==
--- NOTE | ~2022-11-06 | PE_ITS ---
EXAMINATION: PET skull to mid thigh DATE: 11/06/2022 13:55 INDICATION: Multiple enlarging pulmonary nodules on prior CT TECHNIQUE: Blood glucose level was 91 mg/dL. 10.628 mCi of 18-fluorodeoxyglucose (18-FDG) was adminis tered i.v. Low dose computed tomography (CT) images were acquired from the base of the brain to the p roximal thighs for attenuation correction and anatomic localization. Positron emission tomography (PE T) images were acquired in the same distribution beginning 55 minutes after injection. Images includi ng fused PET/CT images were reconstructed in axial, coronal, and sagittal planes. Automated exposure control technique was employed. The dose-length product was 481.20mGy-cm. COMPARISON: CT dated 10/28/2022 FINDINGS: Head/neck: There is symmetric increased activity in the oral cavity and oropharynx, laryngeal muscles and ocular muscles without CT correlate, likely physiologic. There are 2 FDG avid soft tissue density nodules w ithin the right parotid gland the larger measuring 1.6 cm with maximal SUV of 15.2 represent either p rimary parotid neoplasm or lymph nodes. No other pathologically enlarged cervical lymphadenopathy or suspicious foci of increased FDG uptake in the visualized head or neck. Chest: Postoperative changes of prior partial right pneumonectomy with surgical clip and mild associated sca rring along the medial aspect of the right upper lobe. Mild to moderate emphysema. There is new groun dglass opacity in the dependent right lower lobe most likely representing atelectasis although differ ential would include pneumonia with mild associated FDG activity with maximal SUV of 3.1 which is sim ilar to the degree of uptake in the liver. There is no evident FDG uptake associated with either the previous noted chronic 1.2 and 9 mm nodules at the basilar right lower lobe or the previous noted 6 m m left lower lobe nodule, the 4 mm intrafissural lymph node along the left major fissure or in the re gion of the previous noted new 3 mm nodule which is unable be identified on the current CT imaging. N o new, enlarging or abnormally FDG avid pulmonary nodules identified. Heart size is normal. Atheroscl erotic coronary artery calcifications. No pericardial or pleural effusion. There is mild uptake along the normal-appearing distal esophagus without radiologic correlate which is likely physiologic. Ther e are couple normal-sized left axillary lymph nodes with minimal FDG uptake with maximal SUV of 2.2. No pathologically enlarged lymphadenopathy. Abdomen/pelvis/proximal thighs: Small calcified gallstones in the dependent aspect of the normal gallbladder. Physiologic renal accum ulation and excretion of FDG activity in the kidneys, bladder and along portions of ureters. Normal d egree and heterogenous pattern of increased uptake throughout the liver without radiologic correlate or dominant FDG avid lesion. The pancreas, spleen and bilateral adrenal glands are normal. Mild uptak e scattered throughout the bowels without radiologic correlate, also likely physiologic. No other abn ormal foci of increased FDG uptake or pathologically enlarged lymphadenopathy in the abdomen, pelvis or proximal thighs. 3.9 cm diameter fusiform infrarenal abdominal aortic aneurysm. Musculoskeletal: Mild thoracolumbar dextroscoliosis. Antegrade intramedullary nicol and interlocking femoral neck screw fixation at the proximal right femur. No suspicious lytic, blastic or abnormally FDG avid bone lesion s. IMPRESSION: 1. No evident increased FDG uptake associated with the previous noted new or enlarging small pulmonar y nodules. Instability noted that sensitivity with PET for subcentimeter pulmonary nodules can be low and would recommend continued follow-up with low-dose noncontrast chest CT in 6 months. 2. Prominent FDG uptake associated with a couple right parotid masses the larger measuring 1.6 cm pricila sprague b
[2022-11-06 12:27] LABS: Glucose Point of Care 91 mg/dl (65-105)
== END 2022-11-06 11:30 | disposition home or self-care (01) ==
PROVIDERS: PCP Nurse Practitioner Family; Visit Provider Nurse Practitioner Family
DX: R91.8 Other nonspecific abnormal finding of lung field (principal)
CPT/HCPCS: 78815; A9552

== ENCOUNTER 2022-12-01 09:09 | Outpatient (CLI) | payer MEDICARE, MEDICAID, SELFPAY ==
--- NOTE | ~2022-12-01 | US_ITS ---
EXAMINATION: US FNA w image guidance DATE: 12/01/2022 10:09 INDICATION: Right parotid mass. TECHNIQUE: The procedure and its benefits and risks were discussed with the patient. Risks specifically discusse d included bleeding, infection, and nerve injury. The patient verbalized understanding of the risks a nd agreed to proceed. The right face was prepped and draped in the usual sterile manner. 1% lidocain e was used for local anesthesia. 5 passes were made with a 25G needle into the lesion under ultrasou nd guidance. There were no immediate complications. FINDINGS: Grayscale ultrasound images demonstrate needles advanced into a 2.5 cm hypoechoic mass in right parot id gland for biopsy. IMPRESSION: 1. Ultrasound-guided fine needle aspiration of a 2.5 cm mass in right parotid gland. Reviewed, dictated and finalized at location D.
== END 2022-12-01 09:10 | disposition home or self-care (01) ==
LOC: CHSIMG 09:10
PROVIDERS: PCP Nurse Practitioner Family; Visit Provider Nurse Practitioner Family
DX: K11.8 Other diseases of salivary glands (principal); D11.0 Benign neoplasm of parotid gland
CPT/HCPCS: 10005; 88108; 88172; 88173; 88305

== ENCOUNTER 2023-01-15 10:41 | Outpatient (CLI) | payer MEDICARE, MEDICAID, SELFPAY ==
--- NOTE | ~2023-01-15 | US_ITS ---
EXAMINATION: US aorta DATE: 01/15/2023 11:39 CDT INDICATION: Abdominal aortic aneurysm TECHNIQUE: Grayscale, color Doppler, and pulsed Doppler images of the aorta and common iliac arteries were obtained. COMPARISON: None. FINDINGS: There is diffuse atherosclerosis of the abdominal aorta The proximal aorta measures 2.7 cm greatest s agittal dimension. The mid aorta measures 3 cm greatest sagittal dimension. The distal aorta measures 3.6 cm greatest sagittal dimension. The right common internal iliac artery measures 13 mm. The left common iliac artery measures 10 mm. IMPRESSION: 1. Moderate diffuse atherosclerosis with abdominal aortic aneurysm measuring 3.6 cm greatest sagittal dimension. The mid abdominal aorta measures 4 x 3.5 cm greatest axial dimension. Reviewed, dictated and finalized at location L. IMPRESSION: 1. Moderate diffuse atherosclerosis with abdominal aortic aneurysm measuring 3. 6 cm greatest sagittal dimension. The mid abdominal aorta measures 4 x 3.5 cm g reatest axial dimension.
== END 2023-01-15 10:42 | disposition home or self-care (01) ==
LOC: CHSIMG 10:43
PROVIDERS: PCP Nurse Practitioner Family; Visit Provider Internal Medicine Cardiovascular Disease
DX: I71.40 Abdominal aortic aneurysm, without rupture, unspecified (principal)
CPT/HCPCS: 76775

== ENCOUNTER 2023-02-02 12:00 | Outpatient (CLI) | payer MEDICARE, MEDICAID, SELFPAY ==
--- NOTE | 2023-02-02 12:17 | ECHO_ITS ---
Patient Info Name: Clara Joseph Age: 67 years : 1955 Gender: Female Ht: 65 in Wt: 140 lbs BSA: 1.71 m2 HR: 83 bpm BP: 130 / 86 mmHg Heart Rhythm: Sinus Rhythm Technical Quality: Fair Exam Date: 02/02/2023 12:30 PM Exam Location: [facility] Patient Status: Outpatient Admit Date: 02/02/2023 Staff Ordering Physician: Kevin Rubio DO Emergency Generator Mechanic: Hollie Mir RDCS Attending Provider: Kevin Rubio DO Referring Physician: Ramiro SAVAGE; Exam Type: CA echo dop color flow w con Study Info Indications - other fortm of dyspnea Complete two-dimensional, color flow and Doppler transthoracic echocardiogram is performed. Summary 1. Complete two-dimensional, color flow and Doppler transthoracic echocardiogram is performed. 2. Left ventricular chamber dimension is normal. 3. Left ventricular systolic function is normal, estimated at 60-65%. 4. The left ventricular diastolic function is grade I diastolic dysfunction. 5. E/e' 8 is minimally elevated. 6. There is moderate aortic valve sclerosis. 7. There is mild tricuspid valve regurgitation. 8. No pulmonary hypertension, estimated pulmonary arterial systolic pressure is 21 mmHg. 9. There is trace pulmonic regurgitation. Left Ventricle E/e' 8 is minimally elevated. Left ventricular chamber dimension is normal. Left ventricular systolic function is normal, estimated at 60-65%. The left ventricular diastolic function is grade I diastolic dysfunction. Right Ventricle Right ventricular systolic function is normal and with normal TAPSE 2.7 cm. Right ventricular chamber dimension is normal. Left Atria Left atrial chamber dimension is normal. Right Atria Right atrial chamber dimension is normal. Aortic Valve The aortic valve is trileaflet. There is moderate aortic valve sclerosis. There is no aortic valve stenosis. There is no aortic valve regurgitation. Pulmonic Valve There is trace pulmonic regurgitation. Mitral Valve There is no mitral valve stenosis. There is no mitral valve regurgitation. Tricuspid Valve There is mild tricuspid valve regurgitation. No pulmonary hypertension, estimated pulmonary arterial systolic pressure is 21 mmHg. Pericardium/Pleural There is no pericardial effusion. Inferior Vena Cava Normal inferior vena cava with >50% collapse upon inspiration consistent with normal right atrial pressure, 5 mmHg. Aorta The aortic root size at the sinus of Valsalva is normal. Left Ventricular Outflow Tract Name Value Normal LVOT 2D LVOT Diameter 1.99 cm LVOT Doppler LVOT Peak Velocity 115.80 cm/s LVOT Peak Gradient 5 mmHg LVOT Mean Gradient 3 mmHg LVOT VTI 22.58 cm LVOT VTI/AV VTI Ratio 0.86 LVOT Stroke Volume 69.89 ml Pulmonic Valve Name Value Normal RVOT Doppler RVOT Peak Gradient 0 mmHg
== END 2023-02-02 12:01 | disposition home or self-care (01) ==
PROVIDERS: PCP Nurse Practitioner Family; Visit Provider Internal Medicine Cardiovascular Disease
DX: R06.09 Other forms of dyspnea (principal); E78.5 Hyperlipidemia, unspecified; I08.2 Rheumatic disorders of both aortic and tricuspid valves
CPT/HCPCS: 93306; C8929

== ENCOUNTER 2023-02-24 12:29 | Outpatient (CLI) | payer MEDICARE, SELFPAY ==
--- NOTE | ~2023-02-24 | DEXA_ITS ---
Bone Density Report Name: CLAUDIA BUTLER Age: 67 Sex: Female Ethnicity: White Date of : 1955 Indication: postmenopausal; screening for osteoporosis; height loss; prior fracture; asthma or emphysema; rheumatoid arthritis; Referring Provider: IRASEMA OLIVO Study: Bone densitometry was performed. Exam Date: February 24, 2023 Accession number: [id number] Bone Density: Region BMD T-score Z-score Classification AP Spine(L2, L3, L4) 0.989 -0.8 1.1 Normal Femoral Neck (Left) 0.584 -2.4 -0.8 Osteopenia Total Hip (Left) 0.671 -2.2 -0.9 Osteopenia World Health Organization criteria for BMD impression classify patients as: Normal (T-score at or above -1.0), Osteopenia (T-score between -1.0 and -2.5), or Osteoporosis (T-score at or below -2.5). 10-year Fracture Risk: FRAX not reported because: Prior hip or vertebral fracture Clinical Information Provided by Patient: Have had a previous hip or vertebral fracture Has had a low trauma fracture Smokes Has rheumatoid arthritis Has 3 or more alcoholic drinks per day Has used the following medications: Vitamin D Has the following medical conditions: Asthma or Emphysema Patient maximum height was 67 Menopause Age: 51 No regular weight bearing exercise Drinks caffeinated beverages Onset of menses at age 14 Number of children 5 Impression: The patient has low bone mass, based on the Left Femoral Neck T-score. The patient has risk factors, including: smoking, excessive alcohol use, previous fracture. Discussion: INCREASED RISK OF FRACTURE DUE TO HISTORY OF FRACTURE. The patient's previous fracture puts the patient at high risk of a future fracture. In untreated patients, the risk of osteoporotic fracture increases approximately two-fold for each 1.0 SD decrease in T-score. Low bone density is not the only risk factor for fracture; also consider factors such as patient's age, frailty or poor health, risk of falling, risk of injury, previous osteoporotic fracture, family history of osteoporosis, cigarette smoking, low body weight, etc. Not everyone with a low trauma fracture has osteoporosis; osteomalacia and other metabolic bone disorders should also be considered. Patients who have osteoporosis should be evaluated for specific diseases and conditions (secondary causes) that may cause or contribute to bone loss and fracture risk. National Osteoporosis Foundation (NOF) recommends pharmacologic intervention for patients with a prior hip or vertebral fracture regardless of BMD T-score. The patient should follow a healthful lifestyle (good nutrition with adequate calcium and vitamin D, and appropriate weight-bearing exercise). Follow-Up: Consider a repeat BMD and Vertebral Fracture Assessment (VFA) exam in 2 years or sooner if medically necessary, to reassess this patient's status. Reported by: Dr. Chris Walter on 02/24/2023 12:55:00 PM. Reviewed, dictated and
== END 2023-02-24 12:30 | disposition home or self-care (01) ==
PROVIDERS: PCP Nurse Practitioner Family; Visit Provider Nurse Practitioner Family
DX: Z78.0 Asymptomatic menopausal state (principal); M85.89 Other specified disorders of bone density and structure, multiple sites
CPT/HCPCS: 77080

== ENCOUNTER 2023-04-30 11:42 | Outpatient (CLI) | payer MEDICARE, MEDICAID, SELFPAY ==
[2023-04-30 12:02] LABS: Basophils Absolute Auto 0.05 K/mm3 (0.00-0.10); Basophils Percent Auto 0.5 % (0.0-1.0); Eosinophils Absolute Auto 0.11 K/mm3 (0.02-0.50); Eosinophils Percent Auto 1.1 % (1.0-6.0); Hematocrit 40.3 % (35.0-42.0); Hemoglobin 13.9 g/dL (11.7-13.8); Immature Granulocyte Absolute 0.04 K/mm3 (0.00-0.00); Immature Granulocyte Percent A 0.4 % (0.0-0.0); Lymphocytes Absolute Auto 3.43 K/mm3 (1.10-4.50); Lymphocytes Percent Auto 34.6 % (18.0-42.0); Mean Corpuscular HGB Conc 34.5 g/dL (32.0-36.0); Mean Corpuscular Hemoglobin 34.8 pg (27.0-31.0); Mean Platelet Volume 8.9 fl (9.2-11.8); Monocytes Absolute Auto 0.68 K/mm3 (0.10-0.90); Monocytes Percent Auto 6.9 % (2.0-11.0); Neutrophils Absolute Auto 5.6 K/mm3 (1.7-7.2); Neutrophils Percent Auto 56.5 % (50.0-70.0); Platelet Count Result 282 K/mm3 (150-420); Red Blood Count 3.99 M/mm3 (4.20-5.40); Red Cell Distribution Width 12.6 % (11.6-14.4); White Blood Count 9.9 K/mm3 (4.8-10.8)
[2023-04-30 12:12] LABS: Hemoglobin A1C 5.8 % (<5.7)
[2023-04-30 12:16] LABS: INR 0.9; Prothrombin Time 10.2 Seconds (9.50-12.10)
[2023-04-30 12:25] LABS: Alanine Aminotransferase 17 U/L (14-59); Albumin Level 3.9 g/dL (3.4-5.0); Alkaline Phosphatase 131 U/L (46-116); Anion Gap 7 mmol/L (8-16); Aspartate Amino Transferase 21 U/L (15-37); Bilirubin,Total 0.2 mg/dL (0.00-1.00); Blood Urea Nitrogen 10 mg/dL (7-18); Calcium 9.1 mg/dL (8.5-10.1); Carbon Dioxide 30 mmol/L (21-32); Chloride 105 mmol/L (98-108); Cholesterol 163 mg/dL (0-200); Estimated Glomerular Filt Rate > 60; Glucose 98 mg/dL (70-99); HDL Direct 49 mg/dL (40-60); LDL Cholesterol Calculated 100 mg/dL (<130); Osmolality Calculated 293 mOsm/kg (285-295); Potassium 3.7 mmol/L (3.5-5.1); Sodium 142 mmol/L (136-145); Total Protein 7.3 g/dL (6.4-8.2); Triglycerides 71 mg/dL (0-150)
[2023-05-03 20:27] LABS: Homocysteine 18.7 umol/L (<10.4)
== END 2023-04-30 11:43 | disposition home or self-care (01) ==
LOC: CHSLAB 11:43
PROVIDERS: PCP Nurse Practitioner Family; Visit Provider Nurse Practitioner Family
DX: I73.9 Peripheral vascular disease, unspecified (principal); I71.40 Abdominal aortic aneurysm, without rupture, unspecified; Z79.899 Other long term (current) drug therapy
CPT/HCPCS: 36415; 80053; 80061; 83036; 83090; 85025; 85610

== ENCOUNTER 2023-05-07 14:34 | Outpatient (CLI) | payer MEDICARE, MEDICAID, SELFPAY ==
[2023-05-07 16:31] LABS: Folic Acid 5.5 ng/mL (8.6->20); Vitamin B12 728 pg/mL (193-986)
[2023-05-12 13:21] LABS: Vitamin B6 21.4 ng/mL (2.1-21.7)
== END 2023-05-07 14:35 | disposition home or self-care (01) ==
LOC: CHSLAB 14:37
PROVIDERS: PCP Nurse Practitioner Family; Visit Provider Nurse Practitioner Family
DX: I73.9 Peripheral vascular disease, unspecified (principal)
CPT/HCPCS: 36415; 82607; 82746; 84207

== ENCOUNTER 2023-06-13 16:33 | Emergency (ER) | payer MEDICARE, SELFPAY ==
--- NOTE | ~2023-06-13 | XR_ITS ---
EXAMINATION: XR elbow LT min 3V DATE: 06/13/2023 17:08 INDICATION: Posterior left elbow pain and swelling TECHNIQUE: Anteroposterior, two oblique and lateral views of the left elbow were obtained. COMPARISON: None. FINDINGS: Alignment is normal. No fracture. Moderate osteoarthritis at the left elbow. No evident elbow joint e ffusion. Prominent soft tissue swelling posterior to the elbow. Soft tissues are unremarkable. IMPRESSION: 1. Moderate osteoarthritis at the left elbow. No acute osseous abnormality. 2. Prominent soft tissue swelling posterior to the left elbow with no evident elbow joint effusion. Reviewed, dictated and finalized at location A. IMPRESSION: 1. Moderate osteoarthritis at the left elbow. No acute osseous abnormality. 2. Prominent soft tissue swelling posterior to the left elbow with no evident e lbow joint effusion.
[2023-06-13 16:44] VITALS: BP 110/72; PULSE 97; RESP 17; TEMP 36.7; O2SAT 94
--- NOTE | 2023-06-13 16:50 | ED.GENADULT ---
HPI - General Adult General Chief complaint: Extremity Injury, Upper Stated complaint: left elbow pain Time Seen by Provider: 06/13/23 16:44 Source: patient Mode of arrival: ambulatory Limitations: no limitations History of Present Illness HPI narrative: Pt presents to Ed with left elbow pain of 1 day duration. Was moving into a new house and lifting heavy objects. Onset (ago): day(s) Location: upper extremity Radiation: non-radiation Severity: severe Severity scale (1-10): 9 Quality: aching Pain Consistency: constant Relieving factors: none Exacerbating factors: movement Associated symptoms: denies other symptoms Treatments prior to arrival: none Related Data Allergies Allergy/AdvReac Type Severity Reaction Status Date / Time chlordiazepoxide Allergy elevated Verified 06/13/23 16:43 [From Librium] liver enzymes Review of Systems Constitutional: Constitutional: Reports as per HPI and Reports no additional constitutional complaints Eyes: Eyes: Reports as per HPI and Reports no additional eye complaints ENT: Reports system reviewed and no additional complaints, except as documented and Reports as per HPI Cardiovascular: Cardiovascular: Reports as per HPI and Reports no additional cardiovascular complaints Respiratory: Respiratory: Reports as per HPI and Reports no additional respiratory complaints Gastrointestinal: Gastrointestinal: Reports as per HPI and Reports no additional gastrointestinal complaints Genitourinary: Genitourinary: Reports as per HPI Musculoskeletal: Musculoskeletal: Reports no additional musculoskeletal complaints and Reports as per HPI Integumentary/Breasts: Skin/Breast: Reports system reviewed and no additional complaints, except as docu and Reports as per HPI Neurologic: Reports system reviewed and no additional complaints, except as documented and Reports as per HPI Psychiatric: Psychiatric: Reports no additional psychiatric complaints and Reports as per HPI Endocrine: Endocrine: Reports no additional endocrine complaints and Reports as per HPI Hematologic/Lymphatic: Hematologic/Lymphatic: Reports no additional hematologic/lymphatic complaints and Reports as per HPI Allergic/Immunologic: Allergic/Immunologic: Reports no additional allergic/immunologic complaints and Reports as per HPI PMFSH Past Medical History Medical History Acute bilateral lower abdominal pain Acute upper back pain Age related osteoporosis Alcohol dependence Black stool Cirrhosis of liver Constipation Constipation COPD (chronic obstructive pulmonary disease) Dizziness DVT prophylaxis Elevated d-dimer Elevated liver enzymes DASHA (generalized anxiety disorder) GERD (gastroesophageal reflux disease) History of fracture of right ankle History of humerus fracture left left Hx of pneumothorax Hypokalemia Hypomagnesemia Hypothyroidism determined by thyroid function test Moderate major depression, single episode Multiple fractures Nausea & vomiting Nausea vomiting and diarrhea Nicotine dependence with current use Pneumonia Polyosteoarthritis Rib fracture Sciatica Sepsis Spontaneous pneumothorax Transaminitis Urine discoloration UTI (urinary tract infection) Surgical History Surgical History History of appendectomy History of section, classical x1 History of esophagogastroduodenoscopy (EGD) History of hysterectomy S/P hardware removal right hip knee a which was removed later. Intramedullary screw gamma nail Family History Family History Mother Diabetes mellitus Dementia Heart disease Chronic kidney disease Breast cancer Family history of malignant neoplasm of breast in first degree relative Hypertension Father FH: brain aneurysm Cancer Hypertension Social History Social History (Reviewed 04/30/23 @ 10:59
[2023-06-13] MEDS: KETOROLAC 30 MG/ML VIAL (*BKC) IM (17:04)
[2023-06-13 17:49] VITALS: BP 110/72; PULSE 97; RESP 17; TEMP 36.7; O2SAT 94
== END 2023-06-13 17:49 | disposition home or self-care (01) ==
PROVIDERS: Emergency Provider Emergency Medicine; PCP Nurse Practitioner Family
DX: S50.02XA Contusion of left elbow, initial encounter (principal); E03.9 Hypothyroidism, unspecified; F17.210 Nicotine dependence, cigarettes, uncomplicated; X50.0XXA Overexertion from strenuous movement or load, initial encounter
CPT/HCPCS: 73080; 96372; 99283; J1885

== ENCOUNTER 2025-05-12 10:10 | Outpatient (CLI) | payer MEDICARE, SELFPAY ==
[2025-05-12 10:43] LABS: Hematocrit 42.7 % (35.0-42.0); Hemoglobin 14.2 g/dL (11.7-13.8); Immature Granulocyte Percent A 0.4 % (0.0-0.0); Lymphocytes Absolute Auto 2.63 K/mm3 (1.10-4.50); Mean Corpuscular HGB Conc 33.3 g/dL (32-36); Mean Corpuscular Hemoglobin 34.7 pg (27.0-31.0); Mean Corpuscular Volume 104.4 fL (78.0-102.0); Nucleated Red Blood Cells Absolute Auto 0.00 K/mm3 (0.00-0.00); Nucleated Red Blood Cells Perc 0.0 % (0-0.0); Platelet Count Result 299 K/mm3 (150-420); Red Blood Count 4.09 M/mm3 (4.20-5.40); White Blood Count 8.1 K/mm3 (4.8-10.8)
--- OUTSIDE RECORDS SUMMARY | 2025-05-12 11:04 | XMS_ITS | Clinical Summary ---
Author Organization [facility] Address [address] [place] [address] Care Team Providers Care Farm Equipment Mechanic Name Role Phone Dimas Richardson MD Primary Care Provider [phone] Allergies No known active allergies Medications meloxicam (MOBIC) 15 mg tablet Take 15 mg by mouth daily Active gabapentin (NEURONTIN) 300 mg capsule Take 300 mg by mouth 3 (three) times a day Active pantoprazole DR (PROTONIX) 20 mg EC tablet Take 20 mg by mouth daily Active magnesium oxide 400 mg magnesium capsule Take by mouth Active potassium 99 mg tablet Take by mouth Active Active Problems Problem Noted Date Diagnosed Date COPD (chronic obstructive pulmonary disease) Assessment & Plan (10/24/2019 4:29 PM NEUROLOGY STROKE PHYSICIAN): Obtain full set of PFTs. I will give her samples of Symbicort to be used over next 1 month. If she feels improvement with Symbicort in her dyspnea will send a prescription for that. Pulmonary nodule 10/24/2019 Assessment & Plan (10/24/2019 4:28 PM NEUROLOGY STROKE PHYSICIAN): PET scan finding noted. Patient has right lower lobe nodule measuring 1.3 cm without increased uptake by PET scan. But it has increased over last 14 months from 1.1 cm to 1.3 cm. Low-grade malignancy cannot be excluded. Will repeat CT scan of the chest in 3 months. Will discuss with interventional Radiology if biopsy can be safely performed on it. Smoking greater than 30 pack years 10/24/2019 Assessment & Plan (10/24/2019 4:29 PM NEUROLOGY STROKE PHYSICIAN): Patient was advised to quit smoking. Immunizations Immunization Administration Dates Next Due Hep A, Adult 09/03/2001,02/16/2001 Influenza, Quadrivalent, Spl it, Preservative Free, Intramuscular 07/23/2016 Pneumococcal Polysaccharide PPV23 04/23/2017 Surgical History Surgery Date Site/Laterality Comments FEMUR SURGERY HYSTERECTOMY TONSILLECTOMY Medical History Medical History Date Comments Asthma Pneumonia COPD (chronic obstructive pulmonary disease) Arthritis Family History Medical History Relation Name Comments Diabetes Father Heart disease Father Breast cancer Maternal Grandmother Diabetes Mother Heart disease Mother Relation Name Status Comments Father Maternal Grandmother Mother Social History Tobacco Use Types Packs/Day Years Used Date Smoking Tobacco: Every Day Cigarettes 1 48 Smokeless Tobacco: Never Personal Safety Answer Date Recorded Getting School Help Needed Not on file 11/12 Comments Unknown Sex and Gender Information Value Date Recorded Sex Assigned at Not on file Legal Sex Female 10:07 AM NEUROLOGY STROKE PHYSICIAN Gender Identity Not on file Sexual Orientation Not on file Obstetrics History Last Filed Vital Signs Vital Sign Reading Time Taken Comments Blood Pressure 130/70 10/24/2019 2:01 PM NEUROLOGY STROKE PHYSICIAN Pulse 82 10/24/2019 2:01 PM NEUROLOGY STROKE PHYSICIAN Temperature - - Respiratory Rate 18 10/24/2019 2:01 PM NEUROLOGY STROKE PHYSICIAN Oxygen Saturation 97% 10/24/2019 2:01 PM NEUROLOGY STROKE PHYSICIAN Inhaled Oxygen Concentration - - Weight 69.4 kg (153 lb) 10/24/2019 2:01 PM NEUROLOGY STROKE PHYSICIAN Height 165.1 cm (5' 5) 10/24/2019 2:01 PM NEUROLOGY STROKE PHYSICIAN Body Mass Index 25.46 10/24/2019 2:01 PM NEUROLOGY STROKE PHYSICIAN Plan of Treatment Not on file Insurance [employer] [address] [id number] Care Teams Farm Equipment Mechanic Relationship Specialty Start Date End Date Dimas Richardson MD [address] [address] PCP - General Family Medicine 09/29/19
--- OUTSIDE RECORDS SUMMARY | 2025-05-12 11:04 | XMS_ITS | Clinical Summary ---
Author Organization [facility] Address [address] [place] [address] Care Team Providers Care Steel Molder Name Role Phone Unavailable Primary Care Provider Unavailabl e Source Comments [facility],non-owned Affiliates and Associated Physician Practices is amultiple site organization consisting of ambulatory clinics and hospital sitesin [place], [place], [place] and [place]. This disclosure is being madepursuant to the Care Everywhere program and may not contain all information available regarding this patient. Last updated 18.[facility] Allergies No known active allergies Medications * Be aware that medications may not be up to date on this document. Alwaysverify current medications with the patient. acetaminophen (TYLENOL) 325 MG tablet Take 325 mg by mouth Active alendronate (FOSAMAX) 70 MG tablet 04/12/2021 Active cyclobenzaprine (FLEXERIL) 5 MG tablet 04/12/2021 Active escitalopram (LEXAPRO) 10 MG tablet Take 10 mg by mouth once daily Active furosemide (LASIX) 20 MG tablet 03/19/2021 Active gabapentin (NEURONTIN) 100 MG capsule 03/23/2021 Active levothyroxine (SYNTHROID) 25 MCG tablet 2021 Active Magnesium Oxide 400 MG Active meloxicam (MOBIC) 7.5 MG tablet 04/12/2021 Active omeprazole (PRILOSEC) 40 MG capsule 04/12/2021 Active potassium chloride ER (MICRO-K) 10 MEQ capsule Take 10 mEq by mouth once daily Active Social History Tobacco Use Types Packs/Day Years Used Date Smoking Tobacco: Every Day Cigarettes 5 50 Smokeless Tobacco: Never Alcohol Use Standard Drinks/Week Comments Yes 6 (1 standard drink = 0.6 oz pur e alcohol) Comments Unknown Sex and Gender Information Value Date Recorded Sex Assigned at Not on file Legal Sex Female 3:26 PM CDT Gender Identity Not on file Sexual Orientation Not on file Last Filed Vital Signs Vital Sign Reading Time Taken Comments Blood Pressure 125/75 04/17/2021 11:13 AM CDT Pulse 63 04/17/2021 11:13 AM CDT Temperature 36.1 C (97 F) 04/17/2021 11:13 AM CDT Respiratory Rate - - Oxygen Saturation 96% 04/17/2021 11:13 AM CDT Inhaled Oxygen Concentration - - Weight 60.8 kg (134 lb) 04/17/2021 11:13 AM CDT Height 165.1 cm (5' 5) 04/17/2021 11:13 AM CDT Body Mass Index 22.3 04/17/2021 11:13 AM CDT Plan of Treatment Health Maintenance Due Date Last Done Comments BONE DENSITY TESTING 1955 COLOGUARD (AGES 45-75) - COL ON CA SCREENING 1956 COLON MONITORING 1956 COLONOSCOPY - COLON CA SCREENING 1956 CT COLONOGRAPHY - COLON CA SCREENING 1955 Colorectal Cancer Screening 1955 FIT - COLON CA SCREENING 1956 FLEX SIG - COLON CA SCREENING 1956 LIPID TESTING 1956 MAMMOGRAM 1956 DTAP/TDAP/TD VACCINES (1 - Tdap) 1975 PNEUMOCOCCAL VACCINE 50+ (1 of 2 - PCV) 1975 LUNG CANCER SCREENING 2006 ZOSTER VACCINE (1 of 2) 2006 DEPRESSION SCREENING 08/31/2024 COVID-19 VACCINE (1 - 2023-2 5 season) 2025 INFLUENZA VACCINE (#1) 2025 07/23/2016 Respiratory Syncytial Virus (RSV) Vaccine Pt: or over 60 yrs (1 - 1-dose 75+ series) 2031 HEPATITIS C SCREENING Completed 08/18/2018 , 08/18/2018, 08/18/2018 HEPATITIS B VACCINE Aged Out No longe r eligible based on patient's age to complete this topic HIB VACCINE Aged Out No longer eligi ble based on patient's age to complete this topic HPV VACCINE Aged Out No longer eligi ble based on patient's age to complete this topic MENINGOCOCCAL (Group B) VACCINE SHARED DECISION-MAKING Aged Out No longer eligible based on patient's age to complete this topic MENINGOCOCCAL GROUPS A/C/Y/W VACCINE Aged Out No longer eligible b ased on patient's age to complete this topic Insurance MEDICAID - OUT OF STATE [facility] MEDICARE
--- OUTSIDE RECORDS SUMMARY | 2025-05-12 11:04 | XMS_ITS | Clinical Summary ---
Author Organization [facility] Address [address], [address] [address] Phone Care Team Providers Care Molding Room Supervisor Name Role Phone Dimas Richardson MD Primary Care Provider [phone] Allergies No known active allergies Medications gabapentin (NEURONTIN) 300 MG Capsule Take 300 mg by mouth 3 times daily. Active escitalopram (LEXAPRO) 10 MG Tablet Take 10 mg by mouth daily. Active potassium chloride (MICRO-K) 10 MEQ Capsule CR Take 10 mEq by mouth daily. Active acetaminophen (TYLENOL) 325 MG Tablet Take 325 mg by mouth every 4 hours as needed. Active pantoprazole (PROTONIX) 40 MG Tablet Delayed Response Take 1 Tab by mouth daily. 90 Tab 3 08/18/2018 Active Family History Medical History Relation Name Comments Cancer Father unsure Diabetes Father Cancer Maternal Aunt breast Cancer Mother breast Diabetes Mother Relation Name Status Comments Father Maternal Aunt Mother Social History Tobacco Use Types Packs/Day Years Used Date Smoking Tobacco: Some Days Cigarettes 2 30 Smokeless Tobacco: Never Alcohol Use Standard Drinks/Week Comments Yes 42 (1 standard drink = 0.6 oz pu re alcohol) states 6 pacl/day Comments Unknown Sex and Gender Information Value Date Recorded Sex Assigned at Not on file Legal Sex Female 11:57 PM CDT Gender Identity Not on file Sexual Orientation Not on file Last Filed Vital Signs Vital Sign Reading Time Taken Comments Blood Pressure 148/77 08/18/2018 10:44 AM DRIVER/REFUSE COLLECTOR Pulse 84 08/18/2018 10:14 AM DRIVER/REFUSE COLLECTOR Temperature 36 C (96.8 F) 08/18/2018 10:44 AM DRIVER/REFUSE COLLECTOR Respiratory Rate 18 08/18/2018 10:44 AM DRIVER/REFUSE COLLECTOR Oxygen Saturation 98% 08/18/2018 10:44 AM DRIVER/REFUSE COLLECTOR Inhaled Oxygen Concentration - - Weight 65.3 kg (144 lb) 08/03/2018 9:00 AM DRIVER/REFUSE COLLECTOR Height 167.6 cm (5' 6) 08/03/2018 9:00 AM DRIVER/REFUSE COLLECTOR Body Mass Index 23.24 08/03/2018 9:00 AM DRIVER/REFUSE COLLECTOR Plan of Treatment Health Maintenance Due Date Last Done Comments TdaP Immunization 1956 Cologuard 2001 Immunochemical Fecal Occult Blood 2001 Zoster Immunization (1 of 2) 2006 Respiratory Syncytial Virus (RSV) Immunization (Adult) (1 - Risk 60-74 years 1-dose series) 2016 Pneumococcal Immunization (5 0+ years) (2 of 2 - PCV) 04/23/2018 04/23/2017 SARS-COV-2 Immunization (3 - season) 2024 04/24/2021, 04/03/2021 Influenza Immunization (#1) 2025 07/23/2016 Colonoscopy 08/18/2028 08/18/2018 Colorectal Cancer Screening 08/18/2028 Pneumococcal Immunization Combined Discontinued 04/23/2017 Hepatitis C Virus (HCV) Screening Completed 08/18/2018 Hepatitis B Immunization Aged Out No longer eligible based on patient's age to complete this topic Human Papillomavirus (HPV) Immunization Aged Out No longer eligible based on patient's age to complete this topic Meningococcal Immunization (ACWY) Aged Out No longer eligible based on patient's age to complete this topic Rotavirus Immunization Aged Out No lo nger eligible based on patient's age to complete this topic Procedures Procedure Name Priority Date/Time Associated Diagnosis Comments HEPATITIS PANEL ACUTE (AHP) Routine 08/18/2018 10:46 AM DRIVER/REFUSE COLLECTOR from Last 3 Months or Most Recently Relevant to Health Maintenance Results * Hepatitis Panel Acute (AHP) (08/18/2018 10:46 AM DRIVER/REFUSE COLLECTOR) HEPATITIS A IGM ANTIBODY NON DETECTED NON DETECTED 08/18/2018 9:59 PM DRIVER/REFUSE COLLECTOR [facility] Comment: IGM Antibodies to HAV not detected. Does not exclude early acute or recovered HAV infection. HEP B CORE AB (IGM) NON DETECTED NON DETECTED 08/18/2018 9:59 PM DRIVER/REFUSE COLLECTOR [facility] Comment: IGM anti-HBC not detected. Does not exclude the possibility of exposure to or infection with HBV. HEPATITIS B SURFACE ANTIGEN NON DETECTED NON DETECTED 08/18/2018 9:59 PM DRIVER/REFUSE COLLECTOR [facility] Comment: A nonreactive test result does not exclude the possibility of exposure to or infection with Hepatitis B virus. A nonreactive test result in individuals with prior exposure to hepatitis B may be due to antigen levels below the detection limit of this assay or lack of antigen reactivity to the antibodies in this assay. hepatitis C antibody 0.12 <1 S/CO 08/18/2018 9:59 PM DRIVER/REFUSE COLLECTOR [facility] Comment: Signal/Cutoff ratio < 0.79 is Nondetected Signal/Cutoff ratio 0.80-0.99 is Grayzone Signal/Cutoff ratio > 0.99 is Detected Supplemental assays are recommended if signal/cutoff ratio is >/=1.00. Signal/cutoff ratio result >/= 5.00 is 97% predictive of positivity for recombinant immunoblot assay (RIBA) and will be reported to the [place] Department of Public Health as required. Blood specimen (specimen) Butterfly Puncture / Unknown 08/18/2018 10:46 AM DRIVER/REFUSE COLLECTOR 08/18/2018 10:51 AM DRIVER/REFUSE COLLECTOR us Lila Ho PHYSICS TECHNICIAN, FIRE ALARM MECHANIC HEMATOLOGY ORDERA BLES Final Result [facility] [address] [place] [address], from Last 3 Months or Most Recently Relevant to Health Maintenance Insurance MEDICAID [place] Care Teams Molding Room Supervisor Relationship Specialty Start Date End Date Dimas Richardson MD [address] [place] [address] PCP - General Family Medicine 06/23/18
[2025-05-12 11:34] LABS: Alanine Aminotransferase 17 U/L (6-35); Albumin Level 4.4 g/dL (3.5-5.1); Alkaline Phosphatase 83 U/L (38-126); Anion Gap 10 mmol/L (4-12); Aspartate Amino Transferase 37 U/L (14-36); Bilirubin,Total 0.5 mg/dL (0.2-1.3); Blood Urea Nitrogen 4 mg/dL (7-17); Calcium 9.9 mg/dL (8.4-10.2); Carbon Dioxide 27 mmol/L (22-30); Chloride 104 mmol/L (98-107); Cholesterol 184 mg/dL (0-200); Estimated Glomerular Filt Rate > 60; Glucose 97 mg/dL (65-110); HDL Direct 66 mg/dL; Osmolality Calculated 288 mOsm/kg (285-295); Potassium 3.8 mmol/L (3.4-5.0); Sodium 141 mmol/L (137-145); Total Protein 7.2 g/dL (6.3-8.2); Triglycerides 89 mg/dL (<150)
[2025-05-12 12:08] LABS: Thyroid Stimulating Hormone Reflex 5.050 uIU/mL (0.465-4.68)
[2025-05-12 12:40] LABS: Free T4 Free Thyroxine Reflex 0.84 ng/dL (0.78-2.19); Vitamin B12 540.0 pg/mL (239-931)
[2025-05-15 13:56] LABS: Hemoglobin A1C 5.3 % (<5.7)
== END 2025-05-12 10:11 | disposition home or self-care (01) ==
LOC: CHSLAB 10:18
PROVIDERS: PCP Family Medicine; Visit Provider Family Medicine
DX: E78.5 Hyperlipidemia, unspecified (principal); E03.9 Hypothyroidism, unspecified; R91.8 Other nonspecific abnormal finding of lung field; E53.8 Deficiency of other specified B group vitamins; E11.9 Type 2 diabetes mellitus without complications; K74.60 Unspecified cirrhosis of liver
CPT/HCPCS: 36415; 80053; 80061; 82105; 82607; 82746; 83036; 84439; 84443; 85025

== ENCOUNTER 2025-06-21 13:40 | Emergency (ER) | payer MEDICARE, SELFPAY ==
[2025-06-21] VITALS (15 sets, daily range): BP systolic 111–148; BP diastolic 56–85; PULSE 89–101; RESP 17–27; TEMP 36.6; O2SAT 93–98
--- NOTE | ~2025-06-21 | XR_ITS ---
XR chest 2V 06/21/2025 14:13 Indication: Cough Procedure: 2 view chest Comparison: Comparison to multiple prior studies sequentially, with oldest reviewed study dated 04/22/2020. Findings: Chronic interstitial infiltrates of the lung bases, consistent with fibrosis. The lungs are hyperinflated which is consistent with, but not diagnostic of chronic obstructive pulmonary disease. No focal air space disease, pulmonary edema, pleural effusion or suspected pneumothorax. There is at herosclerosis of the aorta. No acute osseous abnormality. Impression: 1: Chronic interstitial lung disease of the lung bases. Reviewed, dictated and finalized at location O. Impression: 1: Chronic interstitial lung disease of the lung bases.
--- NOTE | ~2025-06-21 | CT_ITS ---
EXAMINATION: CTA chest PE protocol DATE: 06/21/2025 15:06 CDT INDICATION: Elevated d-dimer TECHNIQUE: Computed tomographic angiography (CTA) of the chest was performed with 100 mL Omnipaque-350 intravenous contrast. The dose-length product was 149.79 mGy-cm. Maximum intensity projection 3D-reconstructions of the aorta and other arteries were constructed by the technologist on a separate workstation. COMPARISON: CT lung screening 10/28/2022 FINDINGS: Lungs and pleura: [ No pulmonary emboli identified.] Tracheobronchial tree is patent. No pneumothorax. No pleural effusion. No focal pulmonary consolidation. Grossly stable mild to moderate centrilobular emphysema. Biapical scarring. Stable 7 mm subpleural nodule in the left lower lobe. There are subpleural reticular and groundglass opacities in the lower lungs. There is a 2.1 cm irregular pulmonary nodule in the right lower lobe and a 1.5 cm irregular pulmonary nodule in the right lower lobe. Mediastinum and pulmonary shayan: [ No mass or adenopathy.] Axillary/intramammary and supraclavicular: [ No mass or adenopathy.] Heart and great vessels: [ Normal heart size.[ [ No pericardial effusion.] [ No aneurysm.] Moderate atherosclerotic disease in the thoracic aorta. Chest Wall: [ Unremarkable.] Upper Abdomen: [ No significant findings.] Osseous structures: [ No acute fracture or destructive lesion.] [ Multilevel degenerative change in the visualized spine.] Additional findings: [ None of significance.] IMPRESSION: 1. No pulmonary embolism identified. 2. There is a 2.1 cm irregular pulmonary nodule in the right lower lobe and a 1.5 cm irregular pulmonary nodule in the right lower lobe. The pulmonary nodules appears slightly more prominent than seen in the study from 10/28/2022. A PET/CT and/or biopsy is recommended. 3. Stable 7 mm pulmonary nodule in the left lower lobe. A follow-up chest CT in 6 months is recommended. 4.There are subpleural reticular and groundglass opacities in the lower lungs 5. Grossly stable mild to moderate centrilobular emphysema. Reviewed, dictated and finalized at location Q. IMPRESSION: 1. No pulmonary embolism identified. 2. There is a 2.1 cm irregular pulmonary nodule in the right lower lobe and a 1 .5 cm irregular pulmonary nodule in the right lower lobe. The pulmonary nodules appears slightly more prominent than seen in the study from 10/28/2022. A PET/C T and/or biopsy is recommended. 3. Stable 7 mm pulmonary nodule in the left lower lobe. A follow-up chest CT in 6 months is recommended. 4.There are subpleural reticular and groundglass opacities in the lower lungs 5. Grossly stable mild to moderate centrilobular emphysema.
--- NOTE | 2025-06-21 13:44 | ED.WEAKNESS ---
HPI - Weakness General Chief complaint: Weakness Stated complaint: weakness Time Seen by Provider: 06/21/25 13:43 Source: patient Mode of arrival: ambulatory Limitations: no limitations History of Present Illness HPI Narrative: 70 year old female is brought to the Emergency Department by wheelchair by Dr. Gaming. Patient complained of generalized weakness. Dr. Gaming states they did a home visit and patient was found to have decreased breath sounds right lower lung and heart rate 115 and pulse ox in lower 90's. Feels she may need to be admitted for IV antibiotics. Patient states she has been sick for years. She states she thinks she may have pneumonia because she has had it before. States she has a cough normally, and has had green phlegm over the past month. Patient continues to smoke. Denies nause, vomiting, diarrhea. Denies chest pain. MD Complaint: generalized weakness Onset (ago): year(s) Location: generalized Relieving factors: none Associated symptoms: other (chronic cough) Related Data Allergies Allergy/AdvReac Type Severity Reaction Status Date / Time chlordiazepoxide (From Allergy elevated Verified 06/21/25 13:43 Librium) liver enzymes Review of Systems Review of Systems: All systems reviewed & are unremarkable except as noted in HPI and below Constitutional: Constitutional: Reports as per HPI, Denies chills, Reports fatigue, Denies fever(s) and Reports weakness Eyes: Eyes: Reports as per HPI ENT: Reports system reviewed and no additional complaints, except as documented, Denies nasal congestion and Denies sore throat Cardiovascular: Cardiovascular: Reports as per HPI, Reports no additional cardiovascular complaints and Denies chest pain Respiratory: Respiratory: Reports as per HPI, Reports no additional respiratory complaints and Reports cough Gastrointestinal: Gastrointestinal: Reports as per HPI, Reports no additional gastrointestinal complaints, Denies abdominal pain, Denies diarrhea, Denies nausea and Denies vomiting Genitourinary: Genitourinary: Reports no additional female genitourinary complaints and Denies dysuria Musculoskeletal: Musculoskeletal: Reports no additional musculoskeletal complaints Integumentary/Breasts: Skin/Breast: Reports system reviewed and no additional complaints, except as docu Neurologic: Reports system reviewed and no additional complaints, except as documented and Reports weakness Psychiatric: Psychiatric: Reports no additional psychiatric complaints Endocrine: Endocrine: Reports no additional endocrine complaints Hematologic/Lymphatic: Hematologic/Lymphatic: Reports no additional hematologic/lymphatic complaints Allergic/Immunologic: Allergic/Immunologic: Reports no additional allergic/immunologic complaints [facility] Past Medical History Medical History Pneumonia Multiple fractures Sciatica Elevated d-dimer Elevated liver enzymes Hypomagnesemia Urine discoloration Dizziness Nausea vomiting and diarrhea Constipation Transaminitis Sepsis Hx of pneumothorax History of humerus fracture left left History of fracture of right ankle UTI (urinary tract infection) Hypokalemia Black stool DVT prophylaxis Nausea & vomiting Acute bilateral lower abdominal pain Constipation Acute upper back pain Rib fracture Moderate major depression, single episode Spontaneous pneumothorax Alcohol dependence Cirrhosis of liver Nicotine dependence with current use Polyosteoarthritis DASHA (generalized anxiety disorder) Age related osteoporosis GERD (gastroesophageal reflux disease) COPD (chronic obstructive pulmonary disease) Hypothyroidism determined by thyroid function test Surgical History Surgical History S/P hardware removal right hip knee a which was removed later. Intramedullary screw gamma nail History of section, classical x1 History of appendectomy History of esophagogastroduodenoscopy (EGD) History of hysterectomy Family History Family History Mother Diabetes mellitus Dementia Heart disease Chronic kidney disease Breast cancer Family history of malignant neoplasm of breast in first degree relative Hypertension Father FH: brain aneurysm Cancer Hypertension Social History Social History Social History: the patient is disabled Now but she used to work until she fractured her hip many years ago. She worked for the [employer]. She smokes a pack To 2 packs ofcigarettes a day since she was a teenager. the patient drinks approximately half a pt of whiskey each day along with 6-8 beers. The patient mixes or whiskey with the beer. She has 4 children. And her sister Melissa Kong is her poa . the patient wishes to be a full code. She minutes to occasionally using methamphetamines and marijuana when she has company in the bring it over with them he be once a month. But she does not use it daily. She is . Smoking packs per day: 1 Smoking cigarettes per day: 20.0 Years smoked: 53 Smoking pack-years: 53.00 Smoking status: Current every day smoker Tobacco type: cigarettes Second hand tobacco smoke exposure: No Alcohol intake: current Drinks per week: 6 Alcohol use details: 6 beers a day Substance use: never Substance use type: marijuana and methamphetamine Living arrangements: alone Additional living arrangements comments: [facility] provides person for shopping, housework, ADLs. Person comes 1 time a week. Occupation/Education: unemployed Gender identity (if verbalized by the patient): Female Sexual Orientation (if Verbalized by the Patient): Straight or Heterosexual Spiritual care concerns: No Exam Const: General: healthy appearing Nutritional Appearance: well nourished Orientation/consciousness: patient oriented x3 Limitations: no limitations Other: smells of Etoh HENMT: Head: normal to inspection Ears: external ears normal Face/Nose/Sinus: Normal external nose present Face and sinus: normal facial exam Mouth: Yes Normal oral and palatal mucosa present Eyes: Pupils: Equal, round and reactive pupils present EOM: EOMs intact bilaterally Direct Ophthalmoscopy: no photophobia Neck: Neck: normal visual inspection and no meningeal signs Chest: Chest palpation & inspection: normal inspection of the chest Resp: Effort & Inspection: normal respiratory effort Auscultation: clear to auscultation bilaterally Cardio: Rate: regular rate Rhythm: regular rhythm Heart sounds: no murmurs GI: Inspection: non-distended GI Palp: Yes Soft to palpation, No Tenderness to palpation present (GI) and No Guarding due to palpation present (GI) Auscultation: normal bowel sounds : General: Yes bladder normal to palpation Back/Spine/Pelvis: Back: no CVA tenderness Skin: General skin exam: normal color Rashes: no rashes Wounds: no wounds Neuro: General: patient oriented x3, moves all extremities, no meningeal signs, no focal motor deficits and CN's II-XI intact bilaterally Cranial nerves: Yes Nystagmus not present Speech: normal speech Extrem: General: normal to inspection and no clubbing, cyanosis or edema Psych: Mental Status: mental status grossly normal Course Course Emergency Course: 70 y/o female is brought to the ED by w/c by Dr. Gaming. States patient has generalized weakness, decreased breath sounds RLL, tachy (115) and pulse ox low 90's. Patient states she has been sick for years, generalized weakness for years, chronic cough and sob. Continues to smoke. Drinks alcohol daily and uses illicit drugs at times. PE: appears older than stated age, smells of Etoh, VSS, no tachypnea or tachycardia, pulse ox 95% ra, lungs clear CBC: H/H 13.6/39.9, Plt 316; wbc 8.3 with 59 S, 30 L, 8 M CMP: Na 144, K 3.7, Cl 109, CO2 25, Glc 85, BUN 6, Cr 0.58; LFT's normal TNI: <0.012 EKG: NSR, 89, NAC D-dimer: 3.36 BNP: 171 Lactic: 1.7 Etoh: 55 UA: unremarkable UDS: +THC, +AMP CXR: chronic interstitial lung disease CTA Chest: no PE. 2.1 cm and 1.5 cm irregular pulmonary nodule RLL. PET/CT rec. 7 mm LLL nodule stable. COPD. Tx: equipment monitor phototypesetting, pulse ox, NS 150 cc/hr. *reviewed and discussed results with patient. Discussed further management. Patient voices understanding and agreement. Rx and Instructions Vital Signs Vital signs: Vital Signs Temperature 36.6 C 06/21/25 13:42 Pulse Rate 97 06/21/25 13:42 Respiratory Rate 18 06/21/25 13:42 Blood Pressure 124/69 06/21/25 13:42 Pulse Oximetry 98 06/21/25 13:42 Oxygen Delivery Room Air 06/21/25 13:42 Temperature 36.6 C 06/21/25 13:42 Pulse Rate 101 H 06/21/25 15:45 Respiratory Rate 26 H 06/21/25 15:45 Blood Pressure 125/69 06/21/25 15:31 Pulse Oximetry 94 06/21/25 15:31 Oxygen Delivery Room Air 06/21/25 13:42 MDM - Weakness Lab Data 06/21/25 13:59 06/21/25 13:59 Labs: Lab Results 06/21/25 06/21/25 06/21/25 Range/Units 13:59 14:02 14:19 WBC 8.3 (4.8-10.8) K/mm3 RBC 3.95 L (4.20-5.40) M/mm3 Hgb 13.6 (11.7-13.8) g/dL Hct 39.9 (35.0-42.0) % MCV 101.0 (78.0-102.0) fL MCH 34.4 H (27.0-31.0) pg MCHC 34.1 (32-36) g/dL RDW 12.5 (11.6-14.4) % Plt Count 316 (150-420) K/mm3 MPV 8.6 L (9.2-11.8) fl Immature Gran % (Auto) 0.4 H (0.0-0.0) % Neut % (Auto) 58.6 (50.0-70.0) % Lymph % (Auto) 30.2 (18.0-42.0) % Ramsey % (Auto) 8.0 (2.0-11.0) % Eos % (Auto) 2.2 (1.0-6.0) % Baso % (Auto) 0.6 (0.0-1.0) % Lymph # (Auto) 2.51 (1.10-4.50) K/mm3 Ramsey # (Auto) 0.66 (0.10-0.90) K/mm3 Eos # (Auto) 0.18 (0.02-0.50) K/mm3 Baso # (Auto) 0.05 (0.00-0.10) K/mm3 Abs Immat Gran (auto) 0.03 H (0.00-0.00) K/mm3 Absolute Neuts (auto) 4.87 (1.70-7.20) K/mm3 Absolute Nucleated RBC 0.00 (0.00-0.00) K/mm3 Nucleated RBC % 0.0 (0-0.0) % D-Dimer 3.36 H (0.19-0.50) mg/L Sodium 144 (137-145) mmol/L Potassium 3.7 (3.4-5.0) mmol/L Chloride 109 H (98-107) mmol/L Carbon Dioxide 25 (22-30) mmol/L Anion Gap 10 (4-12) mmol/L BUN 6 L (7-17) mg/dL Creatinine 0.58 L (0.7-1.0) mg/dL Estim Creat Clear Calc 57 ml/min Estimated GFR > 60 (59 - ) Glucose 85 (65-110) mg/dL Calculated Osmolality 294 (285-295) mOsm/kg Lactic Acid 1.7 (0.4-2.0) mmol/L Calcium 9.8 (8.4-10.2) mg/dL Total Bilirubin 0.3 (0.2-1.3) mg/dL AST 34 (14-36) U/L ALT 18 (6-35) U/L Alkaline Phosphatase 85 (38-126) U/L Troponin I < 0.012 (0.000-0.034) ng/mL NT-Pro-B Natriuret Pep 171 H (19.9-100) pg/mL Total Protein 8.0 (6.3-8.2) g/dL Albumin 4.2 (3.5-5.1) g/dL Urine Color Light yellow (Yellow) Urine Appearance Clear (Clear) Urine pH 6.0 (5.0-8.0) Ur Specific [place] <= 1.005 L (1.010-1.020) Urine Protein Negative (Negative) Urine Glucose (UA) Negative (Negative) Urine Ketones Negative (Negative) Ur Blood (Man) Negative (Negative) Urine Nitrate Negative (Negative) Urine Bilirubin Negative (Negative) Urine Urobilinogen 0.2 (0.2-1.0) mg/dL Leukocyte Esterase Rfl Negative (Negative) LUCERO/UL Urine Opiates Screen Negative (Negative) Urine Methadone Screen Negative (Negative) Ur Barbiturates Screen Negative (Negative) Ur Phencyclidine Scrn Negative (Negative) Ur Amphetamine Screen Positive A (Negative) U Benzodiazepines Scrn Negative (Negative) Urine Cocaine Screen Negative (Negative) U Cannabinoids Screen Positive A (Negative) Ethyl Alcohol 55 (<10) mg/dL Discharge Plan Discharge Clinical Impression: Weakness generalized, Bronchitis, Substance abuse, COPD (chronic obstructive pulmonary disease), Pulmonary nodule Patient Disposition: Home Condition: Stable Instructions: Antibiotic Form, Emphysema (DC), Chronic Bronchitis (DC), Abuse of Alcohol (DC), Cannabis Use Disorder (ED), Methamphetamine Use Disorder (ED), Weakness (ED) Additional Instructions: Take medication as prescribed Stop smoking and illicit drug use Follow up Primary Care Provider Patient Language: Bulgarian Prescriptions: New azithromycin [Zithromax Z-Margarito] 250 mg tablet See Rx Instructions .ROUTE .COMPLEX Qty: 6 0RF Rx Instructions: For 250 mg dose pack: take 500 mg today (day 1), then 250 mg for 4 days (days 2-5) No Action meloxicam 7.5 mg tablet See Rx Instructions .ROUTE .COMPLEX Qty: 30 11RF Dose Instruction: TAKE ONE TABLET BY MOUTH DAILY NEEDED FOR PAIN TAKE WITH FOOD Rx Instructions: TAKE ONE TABLET BY MOUTH DAILY NEEDED FOR PAIN TAKE WITH FOOD Follow-up/Referrals: Angel Gaming DO [Primary Care Provider, [facility]] Time of Disposition: 16:05
--- NOTE | 2025-06-21 13:51 | ECG_ITS ---
Test Date: 2025-06-21 14:04:07 Measurements Intervals Sheldon Rate: 89 P: 66 LA: 162 QRS: 13 QRSD: 82 T: 80 QT: 366 QTc: 447 Interpretive Statements SINUS RHYTHM EARLY PRECORDIAL R/S TRANSITION CONSIDER INFERIOR INFARCT, AGE INDETERMINATE ABNORMAL ECG Electronically Signed On 06-21-2025 14:06:02 CDT by Kevin Rubio D.O.
[2025-06-21 14:03] LABS: Hematocrit 39.9 % (35.0-42.0); Hemoglobin 13.6 g/dL (11.7-13.8); Immature Granulocyte Percent A 0.4 % (0.0-0.0); Lymphocytes Absolute Auto 2.51 K/mm3 (1.10-4.50); Mean Corpuscular HGB Conc 34.1 g/dL (32-36); Mean Corpuscular Hemoglobin 34.4 pg (27.0-31.0); Mean Corpuscular Volume 101.0 fL (78.0-102.0); Nucleated Red Blood Cells Absolute Auto 0.00 K/mm3 (0.00-0.00); Nucleated Red Blood Cells Perc 0.0 % (0-0.0); Platelet Count Result 316 K/mm3 (150-420); Red Blood Count 3.95 M/mm3 (4.20-5.40); White Blood Count 8.3 K/mm3 (4.8-10.8)
[2025-06-21] MEDS: SODIUM CHLORIDE 0.9% IV 1,000 ML 150 ML IV CONT (14:05)
--- NOTE | 2025-06-21 14:08 | PC.NURSE ---
Pt to x-ray with radiology transport.
[2025-06-21 14:16] LABS: Alanine Aminotransferase 18 U/L (6-35); Albumin Level 4.2 g/dL (3.5-5.1); Alkaline Phosphatase 85 U/L (38-126); Anion Gap 10 mmol/L (4-12); Aspartate Amino Transferase 34 U/L (14-36); Bilirubin,Total 0.3 mg/dL (0.2-1.3); Blood Urea Nitrogen 6 mg/dL (7-17); Calcium 9.8 mg/dL (8.4-10.2); Carbon Dioxide 25 mmol/L (22-30); Chloride 109 mmol/L (98-107); Estimated CRCL calculation 57 ml/min; Estimated Glomerular Filt Rate > 60; Glucose 85 mg/dL (65-110); Osmolality Calculated 294 mOsm/kg (285-295); Potassium 3.7 mmol/L (3.4-5.0); Sodium 144 mmol/L (137-145); Total Protein 8.0 g/dL (6.3-8.2)
[2025-06-21 14:26] LABS: Add Urine Microscopic? NO; Appearance Urine Clear (Clear); Glucose Urine UA Negative (Negative); Leukocyte Esterase Ur Negative LEU/UL (Negative); Nitrate Urine Negative (Negative); Specific Grav Ur <= 1.005 (1.010-1.020)
[2025-06-21 14:26] LABS: NT Pro B Type Natriuretic Pept 171 pg/mL (19.9-100)
[2025-06-21 14:29] LABS: Troponin I < 0.012 ng/mL (0.000-0.034)
--- NOTE | 2025-06-21 14:41 | PC.NURSE ---
Pt to CT scanner with radiology transport.
[2025-06-21 14:44] LABS: Cannabinoid Screen Urine Positive (Negative)
--- OUTSIDE RECORDS SUMMARY | 2025-06-21 17:32 | XMS_ITS | Clinical Summary ---
Author Organization [facility] Address [address] [facility] [address] [address] Phone Care Team Providers Care Molder Trimmer Name Role Phone Dimas Richardson MD Primary Care Provider [phone] Allergies No known active allergies Medications gabapentin [...] Comments Blood Pressure 148/77 08/18/2018 10:44 AM EMPLOYEE BENEFITS DIRECTOR Pulse 84 08/18/2018 10:14 AM EMPLOYEE BENEFITS DIRECTOR Temperature 36 C (96.8 F) 08/18/2018 10:44 AM EMPLOYEE BENEFITS DIRECTOR Respiratory Rate 18 08/18/2018 10:44 AM EMPLOYEE BENEFITS DIRECTOR Oxygen Saturation 98% 08/18/2018 10:44 AM EMPLOYEE BENEFITS DIRECTOR Inhaled Oxygen Concentration - - Weight 65.3 kg (144 lb) 08/03/2018 9:00 AM EMPLOYEE BENEFITS DIRECTOR Height 167.6 cm (5' 6) 08/03/2018 9:00 AM EMPLOYEE BENEFITS DIRECTOR Body Mass Index 23.24 08/03/2018 9:00 AM EMPLOYEE BENEFITS DIRECTOR Plan of Treatment Health Maintenance Due Date Last Done Comments TdaP Immunization 1956 Cologuard 2001 Immunochemical Fecal Occult Blood 2001 Zoster Immunization (1 of 2) 2006 Respiratory Syncytial Virus (RSV) Immunization (Adult) (1 - Risk 60-74 years 1-dose series) 2016 Pneumococcal Immunization (5 0+ years) (2 of 2 - PCV) 04/23/2018 04/23/2017 Influenza Immunization (#1) 2025 07/23/2016 SARS-COV-2 Immunization (3 - season) 2025 04/24/2021, 04/03/2021 Colonoscopy 08/18/2028 08/18/2018 Colorectal Cancer Screening 08/18/2028 [...] PANEL ACUTE (AHP) Routine 08/18/2018 10:46 AM EMPLOYEE BENEFITS DIRECTOR from Last 3 Months or Most Recently Relevant to Health Maintenance Results * Hepatitis Panel Acute (AHP) (08/18/2018 10:46 AM EMPLOYEE BENEFITS DIRECTOR) HEPATITIS A IGM ANTIBODY NON DETECTED NON DETECTED 08/18/2018 9:59 PM EMPLOYEE BENEFITS DIRECTOR [facility] Comment: IGM Antibodies to HAV not detected. Does not exclude early acute or recovered HAV infection. HEP B CORE AB (IGM) NON DETECTED NON DETECTED 08/18/2018 9:59 PM EMPLOYEE BENEFITS DIRECTOR [facility] Comment: IGM anti-HBC not detected. Does not exclude the possibility of exposure to or infection with HBV. HEPATITIS B SURFACE ANTIGEN NON DETECTED NON DETECTED 08/18/2018 9:59 PM EMPLOYEE BENEFITS DIRECTOR [facility] Comment: A nonreactive test result does not [...] antibody 0.12 <1 S/CO 08/18/2018 9:59 PM EMPLOYEE BENEFITS DIRECTOR [facility] Comment: Signal/Cutoff ratio < 0.79 is Nondetected Signal/Cutoff ratio 0.80-0.99 is Grayzone Signal/Cutoff ratio > 0.99 is Detected Supplemental assays are recommended if signal/cutoff ratio is >/=1.00. Signal/cutoff ratio result >/= 5.00 is 97% predictive of positivity for recombinant immunoblot assay (RIBA) and will be reported to the [place] Department of Public Health as required. Blood specimen (specimen) Butterfly Puncture / Unknown 08/18/2018 10:46 AM EMPLOYEE BENEFITS DIRECTOR 08/18/2018 10:51 AM EMPLOYEE BENEFITS DIRECTOR us Lila Ho PLUMBING AND HEATING MECHANIC, BRANCH ADMINISTRATOR HEMATOLOGY ORDERA BLES Final Result [facility] [address] [place] [address], from Last 3 Months or Most Recently Relevant to Health Maintenance Insurance MEDICAID [place] Care Teams Molder Trimmer Relationship Specialty Start Date End Date Dimas Richardson MD [address] [place] [address] PCP - General Family Medicine 06/23/18
--- OUTSIDE RECORDS SUMMARY | 2025-06-21 17:32 | XMS_ITS | Clinical Summary ---
Author Organization [facility] Address [address] [place] [address] Care Team Providers Care Cook Station Name Role Phone Dimas Richardson MD Primary Care Provider [phone] Allergies No known active allergies Medications meloxicam [...] disease) Assessment & Plan (10/24/2019 4:29 PM ROLL TENDER): Obtain full set of PFTs. I will give her samples of Symbicort to be used over next 1 month. If she feels improvement with Symbicort in her dyspnea will send a prescription for that. Pulmonary nodule 10/24/2019 Assessment & Plan (10/24/2019 4:28 PM ROLL TENDER): PET scan finding noted. Patient has right [...] 10/24/2019 Assessment & Plan (10/24/2019 4:29 PM ROLL TENDER): Patient was advised to quit smoking. Immunizations [...] on file Legal Sex Female 10:07 AM ROLL TENDER Gender Identity Not on file Sexual Orientation Not on file Obstetrics History Last Filed Vital Signs Vital Sign Reading Time Taken Comments Blood Pressure 130/70 10/24/2019 2:01 PM ROLL TENDER Pulse 82 10/24/2019 2:01 PM ROLL TENDER Temperature - - Respiratory Rate 18 10/24/2019 2:01 PM ROLL TENDER Oxygen Saturation 97% 10/24/2019 2:01 PM ROLL TENDER Inhaled Oxygen Concentration - - Weight 69.4 kg (153 lb) 10/24/2019 2:01 PM ROLL TENDER Height 165.1 cm (5' 5) 10/24/2019 2:01 PM ROLL TENDER Body Mass Index 25.46 10/24/2019 2:01 PM ROLL TENDER Plan of Treatment Not on file Insurance [employer] [address] [id number] Care Teams Cook Station Relationship Specialty Start Date End Date Dimas Richardson MD [address] [address] PCP - General Family Medicine 09/29/19
--- OUTSIDE RECORDS SUMMARY | 2025-06-21 17:32 | XMS_ITS | Clinical Summary ---
Author Organization [facility] Address [address] [address] Care Team Providers Care Closing Manager Name Role Phone Unavailable Primary Care Provider Unavailabl e Source Comments [facility],non-owned Affiliates and Associated Physician Practices is amultiple site organization consisting of ambulatory clinics and hospital sitesin [place], [place], [place] and [place]. This disclosure is being madepursuant to the Care Everywhere program and may not contain all information available regarding this patient. Last updated 18.[facility] Allergies No known active allergies Medications * [...] topic Insurance MEDICAID - OUT OF STATE [facility] [address] MEDICARE
--- OUTSIDE RECORDS SUMMARY | 2025-06-21 18:21 | XMS_ITS | Clinical Summary ---
Author Organization [facility] Address [address] [facility], [address] [address] Phone Care Team Providers Care Funeral Counselor Name Role Phone Dimas Richardson MD Primary Care Provider [phone] Allergies No known active allergies Medications gabapentin [...] Comments Blood Pressure 148/77 08/18/2018 10:44 AM GUARD CAPTAIN Pulse 84 08/18/2018 10:14 AM GUARD CAPTAIN Temperature 36 C (96.8 F) 08/18/2018 10:44 AM GUARD CAPTAIN Respiratory Rate 18 08/18/2018 10:44 AM GUARD CAPTAIN Oxygen Saturation 98% 08/18/2018 10:44 AM GUARD CAPTAIN Inhaled Oxygen Concentration - - Weight 65.3 kg (144 lb) 08/03/2018 9:00 AM GUARD CAPTAIN Height 167.6 cm (5' 6) 08/03/2018 9:00 AM GUARD CAPTAIN Body Mass Index 23.24 08/03/2018 9:00 AM GUARD CAPTAIN Plan of Treatment Health Maintenance Due Date [...] PANEL ACUTE (AHP) Routine 08/18/2018 10:46 AM GUARD CAPTAIN from Last 3 Months or Most Recently Relevant to Health Maintenance Results * Hepatitis Panel Acute (AHP) (08/18/2018 10:46 AM GUARD CAPTAIN) HEPATITIS A IGM ANTIBODY NON DETECTED NON DETECTED 08/18/2018 9:59 PM GUARD CAPTAIN [facility] Comment: IGM Antibodies to HAV not detected. Does not exclude early acute or recovered HAV infection. HEP B CORE AB (IGM) NON DETECTED NON DETECTED 08/18/2018 9:59 PM GUARD CAPTAIN [facility] Comment: IGM anti-HBC not detected. Does not exclude the possibility of exposure to or infection with HBV. HEPATITIS B SURFACE ANTIGEN NON DETECTED NON DETECTED 08/18/2018 9:59 PM GUARD CAPTAIN [facility] Comment: A nonreactive test result [...] antibody 0.12 <1 S/CO 08/18/2018 9:59 PM GUARD CAPTAIN [facility] Comment: Signal/Cutoff ratio < 0.79 is Nondetected Signal/Cutoff ratio 0.80-0.99 is Grayzone Signal/Cutoff ratio > 0.99 is Detected Supplemental assays are recommended if signal/cutoff ratio is >/=1.00. Signal/cutoff ratio result >/= 5.00 is 97% predictive of positivity for recombinant immunoblot assay (RIBA) and will be reported to the [place] Department of Public Health as required. Blood specimen (specimen) Butterfly Puncture / Unknown 08/18/2018 10:46 AM GUARD CAPTAIN 08/18/2018 10:51 AM GUARD CAPTAIN us Lila Ho CONTROL OPERATOR FLOW COAT, CLOTHING PATTERN PREPARER HEMATOLOGY ORDERA BLES Final Result [facility] [address] [place] [address], from Last 3 Months or Most Recently Relevant to Health Maintenance Insurance MEDICAID [place] Care Teams Funeral Counselor Relationship Specialty Start Date End Date Dimas Richardson MD [address] [place] [address] PCP - General Family Medicine 06/23/18
--- OUTSIDE RECORDS SUMMARY | 2025-06-21 18:21 | XMS_ITS | Clinical Summary ---
Author Organization [facility] Address [address] [place] [address] Care Team Providers Care Test Fixture Assembler Name Role Phone iDmas Richardson MD Primary Care Provider [phone] Allergies No known active allergies Medications meloxicam [...] disease) Assessment & Plan (10/24/2019 4:29 PM AUDIT SPECIALIST): Obtain full set of PFTs. I will give her samples of Symbicort to be used over next 1 month. If she feels improvement with Symbicort in her dyspnea will send a prescription for that. Pulmonary nodule 10/24/2019 Assessment & Plan (10/24/2019 4:28 PM AUDIT SPECIALIST): PET scan finding noted. Patient has right [...] 10/24/2019 Assessment & Plan (10/24/2019 4:29 PM AUDIT SPECIALIST): Patient was advised to quit smoking. Immunizations [...] on file Legal Sex Female 10:07 AM AUDIT SPECIALIST Gender Identity Not on file Sexual Orientation Not on file Obstetrics History Last Filed Vital Signs Vital Sign Reading Time Taken Comments Blood Pressure 130/70 10/24/2019 2:01 PM AUDIT SPECIALIST Pulse 82 10/24/2019 2:01 PM AUDIT SPECIALIST Temperature - - Respiratory Rate 18 10/24/2019 2:01 PM AUDIT SPECIALIST Oxygen Saturation 97% 10/24/2019 2:01 PM AUDIT SPECIALIST Inhaled Oxygen Concentration - - Weight 69.4 kg (153 lb) 10/24/2019 2:01 PM AUDIT SPECIALIST Height 165.1 cm (5' 5) 10/24/2019 2:01 PM AUDIT SPECIALIST Body Mass Index 25.46 10/24/2019 2:01 PM AUDIT SPECIALIST Plan of Treatment Not on file Insurance [employer] [address] [id number] Care Teams Test Fixture Assembler Relationship Specialty Start Date End Date Dimas Richardson MD [address] [address] PCP - General Family Medicine 09/29/19
--- OUTSIDE RECORDS SUMMARY | 2025-06-21 18:21 | XMS_ITS | Clinical Summary ---
Author Organization [facility] Address [address] [place] [address] Care Team Providers Care Vice President Of Software Engineering Name Role Phone Unavailable Primary Care Provider Unavailabl e Source Comments [facility],non-owned Affiliates and Associated Physician Practices is amultiple site organization consisting of ambulatory clinics and hospital sitesin [place], [place] and [place]. This disclosure is being madepursuant to the Care Everywhere program and may not contain all information available regarding this patient. Last updated 18.[facility] Allergies No known active allergies Medications * [...] topic Insurance MEDICAID - OUT OF STATE [facility] MEDICARE
== END 2025-06-21 16:16 | disposition home or self-care (01) ==
PROVIDERS: Emergency Provider Emergency Medicine; PCP Family Medicine
DX: R53.1 Weakness (principal); J40 Bronchitis, not specified as acute or chronic; R91.1 Solitary pulmonary nodule; F19.10 Other psychoactive substance abuse, uncomplicated; J44.9 Chronic obstructive pulmonary disease, unspecified; E03.9 Hypothyroidism, unspecified; F17.210 Nicotine dependence, cigarettes, uncomplicated
CPT/HCPCS: 36415; 71046; 71275; 80053; 80307; 81003; 82077; 83605; 83880; 84484; 85025; 85380; 93005; 96360; 96361; 99284; J7030; Q9967